=== PATIENT | female | born 1945 | race Caucasian/White ===

== ENCOUNTER → 2016-12-03 | Outpatient (CLI) | payer MEDICARE | LOC: OD 11:29 | PROVIDERS: ATTEND Physician Assistant | DX: R10.13 Epigastric pain (principal) | CPT/HCPCS: 74022 ==

== ENCOUNTER → 2017-02-10 | Outpatient (CLI) | payer MEDICARE ==
[2017-02-10 10:07] LABS: ALANINE AMINOTRANSFERASE 26 U/L (9-52); ALBUMIN 3.6 g/dL (3.5-5.0); ALKALINE PHOSPHATASE 67 U/L (38-126); ASPARTATE AMINO TRANSFERASE 17 U/L (14-36); BILIRUBIN,DIRECT 0.1 mg/dL (0.0-0.4); BILIRUBIN,TOTAL 0.9 mg/dL (0.2-1.3); TOTAL PROTEIN 5.4 g/dL (6.3-8.2)
[2017-02-10 10:18] LABS: ANION GAP 15 (5-19); BLOOD UREA NITROGEN 22 mg/dL (7-20); CALCIUM 8.8 mg/dL (8.4-10.2); CARBON DIOXIDE 23 mmol/L (22-30); CHLORIDE 105 mmol/L (98-107); CHOLESTEROL 125.31 mg/dL (0-200); CREATININE RESULT 0.93 mg/dL (0.52-1.25); Direct HDL 58 mg/dL (>40); GLUCOSE 89 mg/dL (75-110); POTASSIUM 3.9 mmol/L (3.6-5.0); SODIUM 142.9 mmol/L (137-145); TRIGLYCERIDES 66 mg/dL (<150)
[2017-02-10 10:29] LABS: DIRECT LDL 49 mg/dL (<100)
== END ==
LOC: OD 07:58
PROVIDERS: ATTEND Internal Medicine Cardiovascular Disease
DX: E78.00 Pure hypercholesterolemia, unspecified (principal); Z79.899 Other long term (current) drug therapy
CPT/HCPCS: 36415; 80048; 80061; 80076

== ENCOUNTER → 2017-04-28 | Outpatient (CLI) | payer MEDICARE ==
--- NOTE | 2017-04-28 15:06 | RADIOLOGY REPORT (SQ) ---
EXAM DESCRIPTION: FOOT LEFT COMPLETE COMPLETED DATE/TIME: 04/28/2017 12:54 pm REASON FOR STUDY: PAIN IN LEFT FOOT M79.672 PAIN IN LEFT FOOT COMPARISON: None. NUMBER OF VIEWS: Three views. TECHNIQUE: AP, lateral and oblique radiographic images acquired of the left foot. LIMITATIONS: None. FINDINGS: MINERALIZATION: Osteopenic BONES: No acute fracture or dislocation. No worrisome bone lesions. Small plantar and dorsal calcan eal spurs JOINTS: No effusions. SOFT TISSUES: No soft tissue swelling. No foreign body. OTHER: No other significant finding. IMPRESSION: NEGATIVE STUDY OF THE LEFT FOOT. NO RADIOGRAPHIC EVIDENCE OF ACUTE INJURY. TECHNICAL DOCUMENTATION: JOB ID: [id number] [employer]- All Rights Reserved
== END ==
LOC: OD 12:37
PROVIDERS: ATTEND Physician Assistant
DX: M79.672 Pain in left foot (principal)

== ENCOUNTER → 2017-05-30 | Outpatient (CLI) | payer MEDICARE ==
[2017-05-30 10:25] LABS: ABSOLUTE EOSINOPHILS # (AUTO) 0.1 10^3/uL (0.0-0.6); ABSOLUTE LYMPHOCYTES (AUTO) 0.7 10^3/uL (0.5-4.7); ABSOLUTE MONOCYTES (AUTO) 0.4 10^3/uL (0.1-1.4); BASOPHILS % (AUTO) 0.4 % (0-2); EOSINOPHILS % (AUTO) 1.4 % (0-6); HEMATOCRIT 35.2 % (36.0-47.0); HEMOGLOBIN 12.2 g/dL (12.0-15.5); HGB HCT DIFFERENCE 1.4; LYMPHOCYTES % (AUTO) 15.8 % (13-45); MEAN CORPUSCULAR HEMOGLOBIN 30.5 pg (27.0-33.4); MEAN CORPUSCULAR HGB CONC 34.7 g/dL (32.0-36.0); MEAN CORPUSCULAR VOLUME 88 fl (80-97); MONOCYTES % (AUTO) 10.4 % (3-13); RED BLOOD COUNT 4.01 10^6/uL (3.72-5.28); RED CELL DISTRIBUTION WIDTH 13.7 % (11.5-14.0); WHITE BLOOD COUNT 4.2 10^3/uL (4.0-10.5)
[2017-05-30 10:45] LABS: ALANINE AMINOTRANSFERASE 23 U/L (9-52); ALBUMIN 3.5 g/dL (3.5-5.0); ALKALINE PHOSPHATASE 78 U/L (38-126); ANION GAP 11 (5-19); ASPARTATE AMINO TRANSFERASE 14 U/L (14-36); BILIRUBIN,DIRECT 0.3 mg/dL (0.0-0.4); BILIRUBIN,TOTAL 0.7 mg/dL (0.2-1.3); BLOOD UREA NITROGEN 18 mg/dL (7-20); CALCIUM 8.9 mg/dL (8.4-10.2); CARBON DIOXIDE 27 mmol/L (22-30); CHLORIDE 104 mmol/L (98-107); CREATINE KINASE 66 U/L (30-135); CREATININE RESULT 0.96 mg/dL (0.52-1.25); GLUCOSE 86 mg/dL (75-110); POTASSIUM 4.2 mmol/L (3.6-5.0); SODIUM 141.8 mmol/L (137-145)
[2017-05-30 10:50] LABS: CREATINE KINASE MB 0.53 ng/mL (<4.55)
[2017-05-30 10:54] LABS: TROPONIN I < 0.012 ng/mL
--- NOTE | 2017-05-30 12:36 | RADIOLOGY REPORT (SQ) ---
EXAM DESCRIPTION: CHEST PA/LATERAL COMPLETED DATE/TIME: 05/30/2017 10:02 am REASON FOR STUDY: SOB COMPARISON: 11/20/2012 EXAM PARAMETERS: NUMBER OF VIEWS: two views TECHNIQUE: Digital Frontal and Lateral radiographic views of the chest acquired. RADIATION DOSE: NA LIMITATIONS: none FINDINGS: LUNGS AND PLEURA: Chronic interstitial changes. No effusions. MEDIASTINUM AND HILAR STRUCTURES: No masses or contour abnormalities. HEART AND VASCULAR STRUCTURES: Stable cardiomegaly. BONES: No acute findings. HARDWARE: None in the chest. OTHER: No other significant finding. IMPRESSION: No acute findings in the chest. TECHNICAL DOCUMENTATION: JOB ID: [id number] [employer]- All Rights Reserved
--- NOTE | 2017-05-30 15:08 | RADIOLOGY REPORT (SQ) ---
EXAM DESCRIPTION: CT CHEST WITHOUT COMPLETED DATE/TIME: 05/30/2017 2:40 pm REASON FOR STUDY: SOB/ELEVATED D DIMER COMPARISON: None. TECHNIQUE: Study could not be performed due to inability to obtain adequate venous access. LIMITATIONS: None. FINDINGS: No images acquired. IMPRESSION: Study not performed due to inability to obtain adequate venous access. The patient will have a nuclear medicine lung scan instead. TECHNICAL DOCUMENTATION: JOB ID: [id number] [employer]- All Rights Reserved
--- NOTE | 2017-05-30 15:35 | RADIOLOGY REPORT (SQ) ---
EXAM DESCRIPTION: NM LUNG VENT/PERF SCAN COMPLETED DATE/TIME: 05/30/2017 3:22 pm REASON FOR STUDY: SHORTNESS OF BREATH R06.02 SHORTNESS OF BREATH COMPARISON: None. RADIONUCLIDE AND DOSE: 5.44 millicuries TC-99m MAA Intravenous 31.2 millicuries TC-99m DTPA Inhaled aerosol TECHNIQUE: Two views of the lungs acquired post ventilation of DTPA aerosol. Eight views of the ha gs acquired following injection of MAA. LIMITATIONS: Artifact on the lateral perfusion images due to the patient's body habitus and overlyin g soft tissue. FINDINGS: VENTILATION: Symmetric and homogeneous distribution of DTPA aerosol during ventilatory pha se. No significant areas of photopenia. PERFUSION: Perfusion images with normal homogenous activity and no wedge-shaped or segmental defects. No ventilation-perfusion mismatches. OTHER: No other significant finding. IMPRESSION: RELATIVELY UNREMARKABLE LUNG SCAN. SLIGHTLY LIMITED DUE TO THE PATIENT'S BODY HABITUS. LOW PROBABILITY OF PULMONARY EMBOLISM. TECHNICAL DOCUMENTATION: JOB ID: [id number] [employer]- All Rights Reserved
== END ==
LOC: OD 09:12
PROVIDERS: ATTEND Physician Assistant
DX: R06.02 Shortness of breath (principal); R79.89 Other specified abnormal findings of blood chemistry
CPT/HCPCS: 36415; 82553; 82550; 85025; 80053; 84484; 85379; 71020; 78582; A9540; A9567; Q9969

== ENCOUNTER 2017-06-03 11:38 | Observation (INO) | payer MEDICARE ==
--- NOTE | 2017-06-03 14:24 | RADIOLOGY REPORT (SQ) ---
EXAM DESCRIPTION: CHEST PA/LAT COMPLETED DATE/TIME: 06/03/2017 2:13 pm REASON FOR STUDY: DYSPNEA, LEG SWELLING COMPARISON: 05/30/2017. EXAM PARAMETERS: NUMBER OF VIEWS: two views TECHNIQUE: Digital Frontal and Lateral radiographic views of the chest acquired. RADIATION DOSE: NA LIMITATIONS: none FINDINGS: LUNGS AND PLEURA: No opacities, masses or pneumothorax. No pleural effusion. MEDIASTINUM AND HILAR STRUCTURES: No masses or contour abnormalities. HEART AND VASCULAR STRUCTURES: Heart normal size. No evidence for failure. BONES: No acute findings. HARDWARE: None in the chest. OTHER: No other significant finding. IMPRESSION: NO SIGNIFICANT RADIOGRAPHIC FINDING IN THE CHEST. TECHNICAL DOCUMENTATION: JOB ID: [id number] [employer]- All Rights Reserved
[2017-06-03 14:26] LABS: RED BLOOD COUNT 3.97 10^6/uL (3.72-5.28); WHITE BLOOD COUNT 4.6 10^3/uL (4.0-10.5)
[2017-06-03 14:27] LABS: ABSOLUTE EOSINOPHILS # (AUTO) 0.1 10^3/uL (0.0-0.6); ABSOLUTE LYMPHOCYTES (AUTO) 0.8 10^3/uL (0.5-4.7); ABSOLUTE MONOCYTES (AUTO) 0.4 10^3/uL (0.1-1.4); ABSOLUTE NEUT (AUTO) 3.3 10^3/uL (1.7-8.2); BASOPHILS % (AUTO) 0.7 % (0-2); EOSINOPHILS % (AUTO) 1.1 % (0-6); LYMPHOCYTES % (AUTO) 17.9 % (13-45); MEAN CORPUSCULAR HEMOGLOBIN 30.3 pg (27.0-33.4); MEAN CORPUSCULAR HGB CONC 34.4 g/dL (32.0-36.0); MEAN CORPUSCULAR VOLUME 88 fl (80-97); RED CELL DISTRIBUTION WIDTH 14.2 % (11.5-14.0); SEGMENTED NEUTROPHILS % (AUTO) 71.3 % (42-78)
[2017-06-03 14:32] LABS: PROTHROMBIN TIME 12.3 SEC (11.4-15.4)
[2017-06-03 14:35] LABS: D-DIMER 0.76 ug/mL (0.00-0.50)
[2017-06-03] MEDS ORDERED: ASPIRIN 81 MG TABLET, CHEWABLE PO ONE (14:36)
--- NOTE | 2017-06-03 14:38 | ER Document Report ---
ED General - General Chief Complaint: Shortness Of Breath Stated Complaint: SHORTNESS OF BREATH,RIGHT LEG PAIN Time Seen by Provider: 06/03/17 11:59 Mode of Arrival: Ambulatory Information source: Patient Notes: 71-year-old female with a history of hypertension and VT in the past who presents to the emergency room withE dyspnea on exertion for the past week. Patient states it started last Tuesday. 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 She was evaluated by her primary care doctor 3 days ago and had a VQ scan which was normal at that time. She denies any chest pain. She states that her symptoms now are different than when she had the pulmonary embolus. TRAVEL OUTSIDE OF THE [place] IN LAST 30 DAYS: No - Related Data Allergies/Adverse Reactions: No Known Allergies Allergy (Verified 06/03/17 11:59) Home Medications: Current Home Medications Simvastatin 40 mg PO DAILY 06/03/17 [History] Tramadol HCl 50 mg PO BID 06/03/17 [History] Trazodone HCl 100 mg PO QHS 06/03/17 [History] Past Medical History - General Information source: Patient - Social History Smoking Status: Former Smoker Cigarette use (# per day): No - Patient stop smoking 19 years ago Chew tobacco use (# tins/day): No Frequency of alcohol use: None Drug Abuse: None Family History: Reviewed & Not Pertinent - Past Medical History Cardiac Medical History: Reports: Hx Hypertension - medication Denies: Hx Coronary Artery Disease, Hx Heart Attack Pulmonary Medical History: Reports: Hx Pneumonia Denies: Hx Asthma, Hx Bronchitis, Hx COPD Neurological Medical History: Denies: Hx Cerebrovascular Accident, Hx Seizures Renal/ Medical History: Denies: Hx Peritoneal Dialysis Malignancy Medical History: Reports: Hx Colorectal Cancer GI Medical History: Denies: Hx Hepatitis, Hx Hiatal Hernia, Hx Ulcer Musculoskeltal Medical History: Infectious Medical History: Denies: Hx Hepatitis Past Surgical History: Reports: Hx Abdominal Surgery - hernia, colon surgery, Hx Bowel Surgery - bowel ressection, Hx Herniorrhaphy, Hx Hysterectomy, Hx Orthopedic Surgery - right knee replacement, Hx Tonsillectomy. Denies: Hx Mastectomy, Hx Open Heart Surgery, Hx Pacemaker - Immunizations Hx Diphtheria, Pertussis, Tetanus Vaccination: Yes Hx Pneumococcal Vaccination: 11/20/12 Physical Exam - Vital signs Vitals: Temp Pulse Resp BP Pulse Ox 98.2 F 65 26 H 173/81 H 98 06/03/17 11:41 06/03/17 11:41 06/03/17 11:41 06/03/17 11:41 06/03/17 11:41 Notes: Physical exam: GENERAL: HEAD: Atraumatic, normocephalic. EYES: Pupils equal round and reactive to light, extraocular movements intact, sclera anicteric, conjunctiva are normal. ENT: TMs normal, nares patent, oropharynx clear without exudates. Moist mucous membranes. NECK: Normal range of motion, supple without lymphadenopathy or JVD. LUNGS: Breath sounds clear to auscultation bilaterally and equal. No wheezes rales or rhonchi. HEART: Regular rate and rhythm without murmurs, rubs or gallops. ABDOMEN: Soft, normoactive bowel sounds. No tenderness to palpation. No guarding, no rebound. No masses appreciated. EXTREMITIES: Normal range of motion, no pitting or edema. No clubbing or cyanosis. NEUROLOGICAL: Cranial nerves II through XII grossly intact. Normal speech, normal gait. PSYCH: Normal mood, normal affect. SKIN: Warm, Dry, normal turgor, no rashes or lesions noted. 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 The plan will be to admit the patient for rule out, cardiac monitoring, echo and possible stress. Her symptoms are different than when she experienced a pulmonary embolism years ago. She has not been hypoxic. A VQ scan performed 3 days ago was normal. Lower extremity Dopplers today are normal. While her d-dimer is elevated, I would expect given her history of embolic phenomenon and her age, that it would have been positive anyway. I discussed the case with Dr. Romeron is willing to admit the patient. - Vital Signs Vital signs: Temp Pulse Resp BP Pulse Ox 98.2 F 65 14 171/74 H 98 06/03/17 11:41 06/03/17 11:41 06/03/17 15:02 06/03/17 14:43 06/03/17 15:02 - Laboratory Result Diagrams: 06/03/17 14:00 06/03/17 14:00 Laboratory results interpreted by me: 06/03/17 06/03/17 14:00 14:00 Hct 35.0 L RDW 14.2 H D-Dimer 0.76 H Discharge - Discharge Clinical Impression: Dyspnea on exertion Admitting Provider: Hospitalist - dr Overton Unit Admitted: Telemetry
[2017-06-03 14:44] LABS: ALANINE AMINOTRANSFERASE 28 U/L (9-52); ALBUMIN 3.9 g/dL (3.5-5.0); ALKALINE PHOSPHATASE 80 U/L (38-126); ANION GAP 8 (5-19); ASPARTATE AMINO TRANSFERASE 19 U/L (14-36); BILIRUBIN,DIRECT 0.3 mg/dL (0.0-0.4); BILIRUBIN,TOTAL 0.8 mg/dL (0.2-1.3); BLOOD UREA NITROGEN 20 mg/dL (7-20); CALCIUM 8.6 mg/dL (8.4-10.2); CARBON DIOXIDE 26 mmol/L (22-30); CHLORIDE 105 mmol/L (98-107); CREATININE RESULT 0.91 mg/dL (0.52-1.25); GLUCOSE 90 mg/dL (75-110); POTASSIUM 4.1 mmol/L (3.6-5.0); TOTAL PROTEIN 6.8 g/dL (6.3-8.2)
[2017-06-03 15:22] LABS: CREATINE KINASE MB 0.44 ng/mL (<4.55)
[2017-06-03 15:27] LABS: TROPONIN I < 0.012 ng/mL
--- NOTE | 2017-06-03 16:11 | RADIOLOGY REPORT (SQ) ---
EXAM DESCRIPTION: VENOUS BILATERAL LOWER COMPLETED DATE/TIME: 06/03/2017 4:02 pm REASON FOR STUDY: camacho, h/o PE COMPARISON: None. TECHNIQUE: Dynamic and static gold scale and color images acquired of both lower extremity venous sy stems. Selected spectral images acquired with additional compression and augmentation maneuvers. Imag es stored on PACS. LIMITATIONS: None. FINDINGS: RIGHT LEG COMMON FEMORAL AND FEMORAL: Normal phasicity, compression and augmentation. No visualized echogenic m aterial on gold scale. No defects on color images. POPLITEAL: Normal compression and augmentation. No visualized echogenic material on gold scale. No de fects on color images. CALF VESSELS: Normal compression and augmentation. No visualized echogenic material on gold scale. No defects on color image. GSV AND SSV: Normal compression. No visualized echogenic material on gold scale. No defects on color images. ANY DEEP VENOUS INSUFFICIENCY: Not evaluated. ANY EVIDENCE OF POPLITEAL CYST: No. OTHER: No other significant finding. LEFT LEG COMMON FEMORAL AND FEMORAL: Normal phasicity, compression and augmentation. No visualized echogenic m aterial on gold scale. No defects on color images. POPLITEAL: Normal compression and augmentation. No visualized echogenic material on gold scale. No de fects on color images. CALF VESSELS: Normal compression and augmentation. No visualized echogenic material on gold scale. No defects on color images. GSV AND SSV: Normal compression. No visualized echogenic material on gold scale. No defects on color images. ANY DEEP VENOUS INSUFFICIENCY: Not evaluated. ANY EVIDENCE POPLITEAL CYST: No. OTHER: No other significant finding. IMPRESSION: NO EVIDENCE DVT OR SVT IN EITHER LEG. TECHNICAL DOCUMENTATION: JOB ID: [id number] [employer]- All Rights Reserved
[2017-06-03] MEDS ORDERED: ACETAMINOPHEN 325 MG TABLET PO PRN (17:48)
[2017-06-03] MEDS ORDERED: ONDANSETRON HCL INJ/PF 4 MG/2 ML SDV IV PRN (17:54)
--- NOTE | 2017-06-03 18:08 | PDOC H&P ---
History of Present Illness Admission Date/PCP: 06/03/17 16:13 JAZZY COLEMAN MD Patient complains of: Shortness of breath on exertion History of Present Illness: YUE MARTINEZ is a 71 year old female, with history of hypertension and pulmonary embolism, morbidly obese, has been dealing with shortness of breath on exertion. This is been ongoing for the past week or so. 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 It took a few days before it was restored. Initially her shortness of breath on exertion improved but eventually returned a few days later. The patient was evaluated by her primary care physician or a VQ scan was performed showing low probability for pulmonary embolism. Patient was likewise evaluated by her roll former Dr. Coleman. Patient went to the emergency room because of persistence of her symptoms. A lower extremity venous Doppler was performed but was negative for deep venous thrombosis. At this point a recommendation of stress test was made and therefore the patient was referred to the hospitalist service for admission. Patient denies any specific chest pain, diaphoresis, PND orthopnea, nausea or vomiting nor any shortness of breath at rest. Likewise there is no coughing nor chest congestion. Past Medical History Cardiac Medical History: Reports: Hypertension - medication Denies: Coronary Artery Disease, Myocardial Infarction Pulmonary Medical History: Reports: Pneumonia, Other - Pulmonary embolism Denies: Asthma, Bronchitis, Chronic Obstructive Pulmonary Disease (COPD) Neurological Medical History: Denies: Seizures Malignancy Medical History: Reports: Colorectal Cancer GI Medical History: Denies: Hepatitis, Hiatal Hernia Musculoskeltal Medical History: Hematology: Denies: Anemia, Sickle Cell Disease Past Surgical History Past Surgical History: Reports: Herniorrhaphy, Hysterectomy, Orthopedic Surgery - right knee replacement, Tonsillectomy Denies: Amputation, Mastectomy, Pacemaker Social History Information Source: Patient Smoking Status: Former Smoker Frequency of Alcohol Use: None Hx Recreational Drug Use: No Drugs: None - Advance Directive Resuscitation Status: Full Code Family History Family History: Hypertension Parental Family History Reviewed: Yes Children Family History Reviewed: Yes Sibling(s) Family History Reviewed.: Yes Medication/Allergy Home Medications: Aspirin [Aspirin 81 mg Chewable Tablet] 81 mg PO DAILY 06/03/14 Losartan/Hydrochlorothiazide [Hyzaar 100-25 Tablet] 1 each PO DAILY 06/03/14 Potassium Chloride [Klor-Con 10 Meq Tablet.sa] 10 meq PO DAILY 06/03/14 Simvastatin 40 mg PO DAILY 06/03/17 Tramadol HCl 50 mg PO BID 06/03/17 Trazodone HCl 100 mg PO QHS 06/03/17 Allergies/Adverse Reactions: No Known Allergies Allergy (Verified 06/03/17 11:59) Review of Systems Constitutional: ABSENT: chills, fever(s), headache(s), weight gain, weight loss Eyes: ABSENT: visual disturbances Ears: ABSENT: hearing changes Nose, Mouth, and Throat: ABSENT: mouth pain, sore throat Cardiovascular: PRESENT: dyspnea on exertion, edema - Chronic without any increasing. ABSENT: chest pain, orthropnea, palpitations Respiratory: ABSENT: cough, hemoptysis, sputum Gastrointestinal: ABSENT: abdominal pain, coffee ground emesis, constipation, diarrhea, dysphagia, heartburn, hematemesis, hematochezia, melena, nausea, vomiting Genitourinary: ABSENT: dysuria, hematuria Musculoskeletal: ABSENT: joint swelling Integumentary: ABSENT: pruritus, rash, wounds Neurological: ABSENT: abnormal gait, abnormal speech, confusion, dizziness, focal weakness, syncope Psychiatric: ABSENT: anxiety, depression, homidical ideation, suicidal ideation Endocrine: ABSENT: cold intolerance, heat intolerance, polydipsia, polyuria Hematologic/Lymphatic: ABSENT: easy bleeding, easy bruising Physical Exam Vital Signs: Temp Pulse Resp BP Pulse Ox 98.2 F 65 20 147/47 H 97 06/03/17 11:41 06/03/17 11:41 06/03/17 17:02 06/03/17 17:02 06/03/17 17:02 General appearance: PRESENT: no acute distress, morbidly obese Head exam: PRESENT: atraumatic, normocephalic Eye exam: PRESENT: conjunctiva pink, EOMI, PERRLA. ABSENT: scleral icterus Ear exam: PRESENT: normal external ear exam. ABSENT: drainage Mouth exam: PRESENT: moist, neck supple, tongue midline Neck exam: ABSENT: carotid bruit, JVD, lymphadenopathy, thyromegaly Respiratory exam: PRESENT: clear to auscultation nathan. ABSENT: rales, rhonchi, wheezes Cardiovascular exam: PRESENT: bradycardia, RRR. ABSENT: diastolic murmur, rubs , systolic murmur Pulses: PRESENT: normal dorsalis pedis pul Vascular exam: PRESENT: normal capillary refill GI/Abdominal exam: PRESENT: normal bowel sounds, soft. ABSENT: distended, guarding, mass, organolmegaly, rebound, tenderness Rectal exam: PRESENT: deferred Extremities exam: PRESENT: full ROM, other - Trace lower extremity edema bilateral. ABSENT: calf tenderness, clubbing Neurological exam: PRESENT: alert, awake, oriented to person, oriented to place , oriented to time, oriented to situation, CN II-XII grossly intact. ABSENT: motor sensory deficit Psychiatric exam: PRESENT: appropriate affect, normal mood. ABSENT: homicidal ideation, suicidal ideation Skin exam: PRESENT: dry, intact, warm. ABSENT: cyanosis, rash Results Impressions: Chest X-Ray 06/03/17 13:31 IMPRESSION: NO SIGNIFICANT RADIOGRAPHIC FINDING IN THE CHEST. Venous Doppler Study 06/03/17 14:35 IMPRESSION: NO EVIDENCE DVT OR SVT IN EITHER LEG. Assessment & Plan - Diagnosis (1) Dyspnea on exertion Is this a current diagnosis for this admission?: Yes (2) Sinus bradycardia Is this a current diagnosis for this admission?: Yes (3) Essential hypertension Is this a current diagnosis for this admission?: Yes - Time Time Spent: 50 to 70 Minutes - Plan Summary Plan Summary: The patient will be admitted to observation. We will obtain cardiac enzymes 3. We will likewise obtain TSH and free T4. When enzymes are negative we will proceed with a stress test. Case discussed with her roll former Dr. Coleman. Dr. Coleman agreed for Dr. Currie to do the stress test. I will also hydrate the patient with 2 L of IV fluids and see if it will help.
[2017-06-03 18:59] LABS: CREATINE KINASE MB 0.47 ng/mL (<4.55)
--- NOTE | 2017-06-03 18:59 | EKG REPORT ---
SEVERITY:- BORDERLINE ECG - SINUS BRADYCARDIA BORDERLINE T ABNORMALITIES, INFERIOR LEADS : Confirmed by: Ludy Curtis MD 03-Jun-2017 18:58:13
[2017-06-03] MEDS ORDERED: ENOXAPARIN SODIUM INJ 40 MG/0.4 ML DISP.SYRIN SUBCUT ONE (19:00)
[2017-06-03 19:03] LABS: TROPONIN I < 0.012 ng/mL
[2017-06-03] MEDS: DOCUSATE SODIUM 100 MG CAPSULE PO SCH (19:27)
[2017-06-03] MEDS ORDERED: TRAZODONE HCL 50 MG TABLET PO SCH (22:00)
[2017-06-03 23:01] LABS: ADD ON TESTING BLD IN LAB ACKNOWLEDGE
[2017-06-03 23:24] LABS: MAGNESIUM 2.1 mg/dL (1.6-2.3)
[2017-06-04 01:45] LABS: CREATINE KINASE MB 0.65 ng/mL (<4.55)
[2017-06-04 01:49] LABS: TROPONIN I < 0.012 ng/mL
[2017-06-04] MEDS ORDERED: LANSOPRAZOLE 30 MG TAB.RAP.DR PO SCH (06:00)
[2017-06-04] MEDS ORDERED: NORMAL SALINE 1000 ML 1,000 ML IV PRN (07:27)
[2017-06-04 07:30] LABS: TROPONIN I < 0.012 ng/mL
[2017-06-04] MEDS ORDERED: LOPERAMIDE HCL 2 MG CAPSULE PO PRN (08:37)
[2017-06-04] MEDS ORDERED: LOPERAMIDE HCL 2 MG CAPSULE PO ONE (08:45)
[2017-06-04] MEDS ORDERED: (PENDING PHARMACY ID) (Losartan/Hydrochlorothiazide [Hyzaar 100-25 Tablet] 1 EACH) PO SCH (10:00)
[2017-06-04] MEDS ORDERED: LOSARTAN POTASSIUM 50 MG TABLET PO SCH (10:00)
[2017-06-04] MEDS ORDERED: ENOXAPARIN SODIUM INJ 40 MG/0.4 ML DISP.SYRIN SUBCUT SCH (10:00)
[2017-06-04] MEDS ORDERED: ASPIRIN 81 MG TABLET, CHEWABLE PO SCH (10:00)
[2017-06-04] MEDS ORDERED: POTASSIUM CHLORIDE 10 MEQ TABLET.SA PO SCH (10:00)
[2017-06-04] MEDS ORDERED: HYDROCHLOROTHIAZIDE 25 MG TABLET PO SCH (10:00)
[2017-06-04] MEDS ORDERED: REGADENOSON INJ 0.4 MG/5 ML DISP.SYRIN IV ONE (12:00)
--- NOTE | 2017-06-04 12:57 | DRAGON STRESS TEST REPORT ---
INTRAVENOUS LEXISCAN CARDIOLITE STRESS TEST USING SINGLE PHOTON EMMISION COMPUTERIZED TOMOGRAPHIC. DATE OF PROCEDURE: June 04, 2017 INDICATION : Shortness of breath CARDIAC RISK FACTORS: Hypertension, dyslipidemia RESTING EKG: Sinus bradycardia with heart rate of [address]- T wave changes noted. STRESS EKG: No significant changes noted with LexiScan bolus REASON FOR TERMINATION: Protocol. PROCEDURE REPORT: Baseline heart rate 51 beats per minute with blood pressure of 131/52. Patient had no significant complaints. Heart rate at 2 minutes post bolus 73 with a blood pressure of 134/53. 3 minutes post bolus heart rate 74 with blood pressure of 137/54. No significant EKG changes were noted. Patient had no significant complaints during the procedure or postprocedure. Patient injected with Aminophyllin 75 mg at 3 minutes or later after Lexiscan bolus. CONCLUSIONS: Normal EKG and hemodynamic response to IV LexiScan. NUCLEAR DATA: At rest the patient was given 15.50 millicuries of technetium 99 sestamibi injected intravenously. As per protocol rest gated SPECT images were obtained. Subsequently the patient was given intravenous LexiScan at a dose of 0.4 mg in 5 mL intravenously, followed by flush with normal saline. Subsequently the stress dose of 46.8 millicuries of technetium 99 sestamibi was injected intravenously. As per protocol stress gated images were obtained. NUCLEAR INTERPRETATION: Both raw and processed data were used for interpretation. Visual, qualitative, computer-generated quantitative data was used. There was good myocardial uptake of technetium compound. Motion artifact and soft tissue attenuations were noted. Increased visceral uptake was noted. Breast attenuation artifact was significantly increased. Mild decreased uptake was noted in the distal anterior wall, which is felt to be related to differences in breast attenuation artifact, an area of mild ischemia however cannot be entirely ruled out. No corresponding regional wall motion abnormalities noted on gated imaging. No definitive areas of fixed perfusion defect or scars noted. EKG gated imaging showed LV EF at 69 %, rest and stress gated EF similar visually, no regional wall motion normality is noted. T. I D. ratio was 1.02. Lung heart ratio noted to be within normal limits 0.35. No significant extracardiac and abnormal radiotracer activities were noted. RV free wall uptake was noted to be WNL. IMPRESSION: Also refer to comments under nuclear interpretation. Also test results needs to be interpreted in the context of pretest probability. 1. There is no definitive scintigraphic evidence of LexiScan induced myocardial ischemia. 2. There is no definitive scintigraphic evidence of myocardial infarction/scar. 3. EKG gated imaging shows left ejection fraction of approximately 69 %. 4. Clinical correlation requested as occasionally single vessel disease or balanced ischemia could be missed. In approximately 10% of the cases Lexiscan may not cause adequate vasodilatory stress. RECOMMENDATIONS: Aggressive risk factor modification, medical therapy. Clinical correlation with echocardiogram derived ejection fraction. Inability to exercise by itself can lead to increased cardiovascular event risks. Isabella Currie M.D., [facility] Coffee Shop Attendant certified legal investigator, Board certified in cardiovascular diseases, Nuclear cardiology, Echocardiography Cardiac CT and cardiac MRI Ph. [phone] [facility]
[2017-06-04] MEDS: DOCUSATE SODIUM 100 MG CAPSULE PO SCH (13:12)
--- NOTE | 2017-06-04 14:11 | PDOC DISCHARGE SUMMARY ---
General - Admit/Disc Date/PCP Admission Date/Primary Care Provider: 06/03/17 17:48 JAZZY COLEMAN MD Discharge Date: 06/04/17 - Discharge Diagnosis (1) Dyspnea on exertion Is this a current diagnosis for this admission?: Yes (2) Sinus bradycardia Is this a current diagnosis for this admission?: Yes (3) Essential hypertension Is this a current diagnosis for this admission?: Yes - Additional Information Resuscitation Status: Full Code Discharge Diet: Cardiac Discharge Activity: Activity As Tolerated, Balance Activity w/Rest Home Medications: Aspirin [Aspirin 81 mg Chewable Tablet] 81 mg PO DAILY 06/03/14 Losartan/Hydrochlorothiazide [Hyzaar 100-25 Tablet] 1 each PO DAILY 06/03/14 Potassium Chloride [Klor-Con 10 Meq Tablet.sa] 10 meq PO DAILY 06/03/14 Simvastatin 40 mg PO DAILY 06/03/17 Tramadol HCl 50 mg PO BID 06/03/17 Trazodone HCl 100 mg PO QHS 06/03/17 Additional Information: And recorder as outpatient with Dr. Coleman. History of Present Illness Patient complains of: Shortness of breath on exertion History of Present Illness: YUE MARTINEZ is a 71 year old female, with history of hypertension and pulmonary embolism, morbidly obese, has been dealing with shortness of breath on exertion. This is been ongoing for the past week or so. 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 It took a few days before it was restored. Initially her shortness of breath on exertion improved but eventually returned a few days later. The patient was evaluated by her primary care physician or a VQ scan was performed showing low probability for pulmonary embolism. 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 Coleman. Patient went to the emergency room because of persistence of her symptoms. A lower extremity venous Doppler was performed but was negative for deep venous thrombosis. At this point a recommendation of stress test was made and therefore the patient was referred to the hospitalist service for admission. Patient denies any specific chest pain, diaphoresis, PND orthopnea, nausea or vomiting nor any shortness of breath at rest. Likewise there is no coughing nor chest congestion. Hospital Course Hospital Course: The patient was placed on observation. Serial cardiac enzymes were obtained and were negative. IVF was started. Pt symptoms resoved. Noted w/ bradycardia but patient reports it being chronic. Cardiolyte stress test was obtained and was negative for reversible ischemia. The rest of the hospital stay is unremarkable. Patient D/C improved w/ instructions to have event recorder out- patient w/ Dr. Coleman. Physical Exam Vital Signs: Temp Pulse Resp BP Pulse Ox 98.7 F 48 L 18 147/68 H 97 06/04/17 12:22 06/04/17 12:22 06/04/17 12:22 06/04/17 12:22 06/04/17 12:22 Intake & Output 06/03/17 06/04/17 06/05/17 06:59 06:59 06:59 Intake Total 240 Balance 240 Weight 117.2 kg 117.2 kg General appearance: PRESENT: no acute distress, cooperative, obese Head exam: PRESENT: normocephalic Eye exam: PRESENT: EOMI Mouth exam: PRESENT: moist, neck supple Neck exam: ABSENT: JVD Respiratory exam: PRESENT: clear to auscultation nathan. ABSENT: rhonchi, wheezes Cardiovascular exam: PRESENT: bradycardia, RRR GI/Abdominal exam: PRESENT: normal bowel sounds, soft. ABSENT: distended, tenderness Extremities exam: PRESENT: pedal edema Neurological exam: PRESENT: alert, awake, oriented to person, oriented to place , oriented to time, oriented to situation Skin exam: PRESENT: dry, warm. ABSENT: cyanosis Results Laboratory Results: 06/03/17 06/03/17 06/04/17 18:23 18:23 06:36 Magnesium 2.1 TSH 2.99 Free T4 1.11 06/03/17 06/03/17 06/04/17 18:23 18:23 00:48 Creatine Kinase 63 63 CK-MB (CK-2) 0.47 Troponin I < 0.012 06/04/17 06/04/17 06/04/17 00:48 06:36 06:36 Creatine Kinase 62 CK-MB (CK-2) 0.65 0.70 Troponin I < 0.012 < 0.012 Impressions: Chest X-Ray 06/03/17 13:31 IMPRESSION: NO SIGNIFICANT RADIOGRAPHIC FINDING IN THE CHEST. Venous Doppler Study 06/03/17 14:35 IMPRESSION: NO EVIDENCE DVT OR SVT IN EITHER LEG. Qualifiers PATEINT BEING DISCHARGED WITH ANY OF THE FOLLOWING DIAGNOSIS?: No Plan Discharge Plan: Follow up w/ primary physician in 1 week. Follow-up w/ Dr. Coleman in 3 to 5 days. Time Spent: Less than 30 Minutes
[2017-06-04 14:15] VITALS: BP 144/59
[2017-06-04] MEDS ORDERED: SIMVASTATIN 40 MG TABLET PO SCH (22:00)
== END 2017-06-04 14:27 | disposition home or self-care (01) ==
LOC: ER 11:38 → EH 16:13 → UNDOADMOB 16:13 → EH 17:48 → 4N 17:59 → EH 17:59
DX: R06.09 Other forms of dyspnea (principal); R00.1 Bradycardia, unspecified; I10 Essential (primary) hypertension; R60.0 Localized edema; R74.8 Abnormal levels of other serum enzymes; Z79.899 Other long term (current) drug therapy; Z86.711 Personal history of pulmonary embolism; Z87.01 Personal history of pneumonia (recurrent); Z85.038 Personal history of other malignant neoplasm of large intestine; Z87.891 Personal history of nicotine dependence; Z82.49 Family history of ischemic heart disease and other diseases of the circulatory system; Z79.82 Long term (current) use of aspirin; Z79.891 Long term (current) use of opiate analgesic; Z96.651 Presence of right artificial knee joint
CPT/HCPCS: 93005; 99285; 36415 ×2; 84439; 82553 ×2; 82550 ×2; 83735; 84443; 85025; 85610; 80053; 84484 ×2; 85379; 93970; 93017; 71020; 78452; 93010; A9500; J2785; A9270 ×5; J1650 ×2; J3490; J7030; Q9969; G0378

== ENCOUNTER → 2017-08-10 | Outpatient (CLI) | payer MEDICARE ==
[2017-08-10 11:03] LABS: ALANINE AMINOTRANSFERASE 28 U/L (9-52); ALBUMIN 3.7 g/dL (3.5-5.0); ALKALINE PHOSPHATASE 77 U/L (38-126); ANION GAP 9 (5-19); ASPARTATE AMINO TRANSFERASE 15 U/L (14-36); BILIRUBIN,DIRECT 0.4 mg/dL (0.0-0.4); BILIRUBIN,TOTAL 0.9 mg/dL (0.2-1.3); BLOOD UREA NITROGEN 20 mg/dL (7-20); CALCIUM 9.2 mg/dL (8.4-10.2); CARBON DIOXIDE 30 mmol/L (22-30); CHLORIDE 103 mmol/L (98-107); CHOLESTEROL 131.57 mg/dL (0-200); CREATININE RESULT 0.87 mg/dL (0.52-1.25); Direct HDL 60 mg/dL (>40); GLUCOSE 87 mg/dL (75-110); POTASSIUM 4.1 mmol/L (3.6-5.0); SODIUM 141.6 mmol/L (137-145); TOTAL PROTEIN 5.7 g/dL (6.3-8.2); TRIGLYCERIDES 82 mg/dL (<150)
[2017-08-10 11:15] LABS: DIRECT LDL 54 mg/dL (<100)
== END ==
LOC: OD 10:01
PROVIDERS: ATTEND Internal Medicine Cardiovascular Disease
DX: E78.00 Pure hypercholesterolemia, unspecified (principal); E66.09 Other obesity due to excess calories; Z79.899 Other long term (current) drug therapy
CPT/HCPCS: 36415; 80048; 80061; 80076; 83036

== ENCOUNTER → 2018-01-18 | Outpatient (CLI) | payer MEDICARE ==
--- NOTE | 2018-01-18 12:18 | WOMENS IMAGING REPORT ---
EXAM DESCRIPTION: 3D SCREENING MAMMO BILAT COMPLETED DATE/TIME: 01/18/2018 8:56 am REASON FOR STUDY: ROUTINE SCREENING;Z12.31 Z12.31 ENCNTR SCREEN MAMMOGRAM FOR MALIGNANT NEOPLASM OF [place] COMPARISON: October 2015 and October 2014 TECHNIQUE: Standard craniocaudal and mediolateral oblique views of each breast recorded using digita l acquisition and breast tomosynthesis. LIMITATIONS: None. FINDINGS: No masses, calcifications or architectural distortion. No areas of suspicion. Read with the assistance of CAD. .[facility] - R2 Cenova Version 1.3 .[facility] - R2 Cenova Version 1.3 .[facility] - R2 Cenova Version 2.4 .[facility] [place] [facility] - R2 Cenova Version 2.4 .[facility] - R2 Real Estate Office Manager Version 9.2 IMPRESSION: NORMAL MAMMOGRAM. BIRADS 1. BREAST DENSITY: a. The breasts are almost entirely fatty. BIRAD: 1 NEGATIVE RECOMMENDATION: ROUTINE SCREENING COMMENT: The patient has been notified of the results by letter per MQSA requirements. Additional no tification policies are in place for contacting patient with suspicious or incomplete findings. Quality ID #[id number]: The [employer] recommends an annual screening mammogram for women aged 40 years or over. This facility utilizes a reminder system to ensure that all patients receive reminder letters, and/or direct phone calls for appointments. This includes reminders for routine scr eening mammograms, diagnostic mammograms, or other Breast Imaging Interventions when appropriate. Th is patient will be placed in the appropriate reminder system. The [employer] (ACR) has developed recommendations for screening MRI of the breast s in certain patient populations, to be used in conjunction with mammography. Breast MRI surveillanc e may be appropriate for women with more than 20% lifetime risk of developing breast cancer as deter mined by genetic testing, significant family history of the disease, or history of mantle radiation f or Hodgkins Disease. ACR Practice Guidelines 2008. DBT Technology DBT is a type of tomographic mammography. With conventional mammography, overlapping breast tissue ma y make lesions difficult to detect, even with good compression. DBT uses an x-ray tube that rotates a round the breast, taking images at different angles. These images are then combined to create thin sl ices of the breast that the radiologist can view as a 3D reconstruction. The Information Gateway unit can perform full-field digital mammograms (2D imaging); or DBT (3D imaging); or both, in a combination mode that quickly performs both the mammogram and the tomosynthesis scan while the breast is still compressed. PQRS 6045F: Fluoroscopic imaging is not utilized for breast tomosynthesis. TECHNICAL DOCUMENTATION: FINDING NUMBER: (1) ASSESSMENT: (1) JOB ID: [id number] [employer]- All Rights Reserved Reading location - IP/workstation name: [facility]
== END ==
LOC: WI 08:34
PROVIDERS: ATTEND Physician Assistant
DX: Z12.31 Encounter for screening mammogram for malignant neoplasm of breast (principal)
CPT/HCPCS: 77063; 77067

== ENCOUNTER 2018-02-12 22:42 | Emergency (ER) | payer MEDICARE ==
[2018-02-12] MEDS ORDERED: ONDANSETRON 4 MG TAB.RAPDIS PO ONE (23:08)
[2018-02-13] MEDS ORDERED: NORMAL SALINE 1000 ML 1,000 ML IV ONE (00:08)
--- NOTE | 2018-02-13 00:15 | ER Document Report ---
ED GI/ - General Chief Complaint: Abdominal Pain Stated Complaint: ABDOMINAL PAIN/VOMITING Time Seen by Provider: 02/12/18 23:44 Information source: Patient Notes: Patient is a 72-year-old female who presents with chief complaint of vomiting. Patient reports that she has had constipation for the last 3 days however she states that she took a stool softener and had a moderate sized bowel movement this morning. Patient describes abdominal pain as sudden onset at 2 PM after she ate bread with peanut butter on it. She states that the pain is in her low abdomen and describes it as a sharp pain. Patient states she has vomited at least 10 times. Patient reports that prior to 2 PM she was feeling fine, has not had any recent illness, and has had no chills or fever. Patient reports that she has a past medical history of colon cancer with bowel resection in 2003 , arthritis, hypertension, hyperlipidemia and a hernia repair. Patient reports that she quit smoking approximately 20 years ago and denies use of any alcohol or illicit drugs. TRAVEL OUTSIDE OF THE [place] IN LAST 30 DAYS: No - Related Data Allergies/Adverse Reactions: No Known Allergies Allergy (Verified 06/03/17 11:59) Past Medical History - General Information source: Patient - Social History Smoking Status: Former Smoker Chew tobacco use (# tins/day): No Frequency of alcohol use: None Drug Abuse: None Family History: Hypertension Patient has suicidal ideation: No Patient has homicidal ideation: No - Past Medical History Cardiac Medical History: Reports: Hx Hypercholesterolemia, Hx Hypertension - medication Denies: Hx Coronary Artery Disease, Hx Heart Attack Pulmonary Medical History: Reports: Hx Pneumonia Denies: Hx Asthma, Hx Bronchitis, Hx COPD Neurological Medical History: Denies: Hx Cerebrovascular Accident, Hx Seizures Renal/ Medical History: Denies: Hx Peritoneal Dialysis Malignancy Medical History: Reports: Hx Colorectal Cancer GI Medical History: Reports: Other - Colon CA with bowel resection in 2003. Denies: Hx Hepatitis, Hx Hiatal Hernia, Hx Ulcer Musculoskeltal Medical History: Infectious Medical History: Denies: Hx Hepatitis Past Surgical History: Reports: Hx Abdominal Surgery - hernia, colon surgery, Hx Bowel Surgery - bowel ressection, Hx Herniorrhaphy, Hx Hysterectomy, Hx Orthopedic Surgery - right knee replacement, Hx Tonsillectomy. Denies: Hx Mastectomy, Hx Open Heart Surgery, Hx Pacemaker - Immunizations Hx Diphtheria, Pertussis, Tetanus Vaccination: Yes Hx Pneumococcal Vaccination: 11/20/12 Review of Systems - Review of Systems Constitutional: No symptoms reported EENT: No symptoms reported Cardiovascular: No symptoms reported Respiratory: No symptoms reported Gastrointestinal: See HPI Genitourinary: No symptoms reported Female Genitourinary: No symptoms reported Musculoskeletal: No symptoms reported Skin: No symptoms reported Hematologic/Lymphatic: No symptoms reported Neurological/Psychological: No symptoms reported Physical Exam - Vital signs Vitals: Temp Pulse Resp BP Pulse Ox 98 F 78 18 141/70 H 96 02/12/18 22:51 02/12/18 22:51 02/12/18 22:51 02/12/18 22:51 02/12/18 22:51 - Notes Notes: PHYSICAL EXAMINATION: GENERAL: Well-appearing, well-nourished and in no acute distress. HEAD: Atraumatic, normocephalic. EYES: Pupils equal round and reactive to light, extraocular movements intact, conjunctiva are normal. ENT: Nares patent, oropharynx clear without exudates. Moist mucous membranes. NECK: Normal range of motion, supple without lymphadenopathy LUNGS: Breath sounds clear to auscultation bilaterally and equal. No wheezes rales or rhonchi. HEART: Regular rate and rhythm without murmurs ABDOMEN: Abdomen is soft, non-distended, with tenderness to lower abdomen with deep palpation. No guarding, no rebound. No masses appreciated. Female : deferred Musculoskeletal: Normal range of motion, non-pitting edema to right lower extremity, patient states is chronic and followed by PCM for. No cyanosis. NEUROLOGICAL: Cranial nerves grossly intact. Normal speech. Normal sensory, motor exams PSYCH: Normal mood, normal affect. SKIN: Warm, Dry, normal turgor, no rashes or lesions noted. Course - Re-evaluation Re-evalutation: Patient's vital signs are stable, labs are unremarkable and there is no leukocytosis. Due to patient's age, history of colon cancer, and lower abdominal tenderness, will send patient for CT of her abdomen and pelvis with oral and IV contrast. Patient was given Zofran in triage and patient declines any further pain or nausea medication. 02/13/18 03:[address] Carter, general surgery who is requesting to give patient a p.o. challenge. Will report back to establish if patient cannot tolerate. Jessica agrees to come see the patient. 02/13/18 06:55 Dr. Lopez at bedside to evaluate patient. Dr. Carter is going to speak with Dr. Elise, oncoming surgeon as patient has an upcoming appointment with him. Basically got a workup which was unremarkable briefly 02/13/18 07:00 Dr. Carter wants patient to be discharged home. Patient is to follow-up with Dr. Elise this week. With restrictions of no lifting and soft diet. Patient given strict return precautions. Patient instructed to return to emergency department if she develops worsening pain, persistent vomiting, fever or any other symptoms that are concerning to her. - Vital Signs Vital signs: Temp Pulse Resp BP Pulse Ox 98 F 78 18 141/70 H 96 02/12/18 22:51 02/12/18 22:51 02/12/18 22:51 02/12/18 22:51 02/12/18 22:51 - Laboratory Result Diagrams: 02/13/18 00:12 02/13/18 00:12 Laboratory results interpreted by me: 02/13/18 02/13/18 00:12 00:12 RDW 14.2 H Seg Neutrophils % 89.5 H Lymphocytes % 5.9 L BUN 28 H Glucose 169 H Total Protein 6.1 L Discharge - Discharge Clinical Impression: Abdominal pain Qualifiers: Abdominal location: unspecified location Qualified Code(s): R10.9 - Unspecified abdominal pain Ventral hernia Qualifiers: Obstruction and gangrene presence: without obstruction or gangrene Qualified Code(s): K43.9 - Ventral hernia without obstruction or gangrene Condition: Stable Disposition: HOME, SELF-CARE Instructions: Abdominal Pain ([facility]) Additional Instructions: You have a ventral hernia that requires close follow-up. Please call Dr. Elise's office this morning and schedule an appointment for this week. No lifting. Please consume only a soft diet. Return to the emergency department if you develop worsening pain, persistent vomiting, fever or any other symptoms that are concerning to you. Referrals: XANDER OKEEFE PA [Primary Care Provider] - Follow up as needed MAYURI ELISE MD [ACTIVE STAFF] - Follow up as needed
[2018-02-13 00:29] LABS: ABSOLUTE LYMPHOCYTES (AUTO) 0.5 10^3/uL (0.5-4.7); ABSOLUTE MONOCYTES (AUTO) 0.3 10^3/uL (0.1-1.4); ABSOLUTE NEUT (AUTO) 7.3 10^3/uL (1.7-8.2); BASOPHILS % (AUTO) 0.3 % (0-2); EOSINOPHILS % (AUTO) 0.1 % (0-6); HEMATOCRIT 37.7 % (36.0-47.0); HEMOGLOBIN 12.8 g/dL (12.0-15.5); LYMPHOCYTES % (AUTO) 5.9 % (13-45); MEAN CORPUSCULAR HEMOGLOBIN 29.2 pg (27.0-33.4); MEAN CORPUSCULAR HGB CONC 33.8 g/dL (32.0-36.0); MEAN CORPUSCULAR VOLUME 87 fl (80-97); MONOCYTES % (AUTO) 4.2 % (3-13); PLATELET COUNT 218 10^3/uL (150-450); RED BLOOD COUNT 4.36 10^6/uL (3.72-5.28); RED CELL DISTRIBUTION WIDTH 14.2 % (11.5-14.0); SEGMENTED NEUTROPHILS % (AUTO) 89.5 % (42-78); TOTAL CELLS COUNTED % (AUTO) 100 %; WHITE BLOOD COUNT 8.2 10^3/uL (4.0-10.5)
[2018-02-13 00:42] LABS: ALANINE AMINOTRANSFERASE 27 U/L (9-52); ALBUMIN 3.7 g/dL (3.5-5.0); ALKALINE PHOSPHATASE 76 U/L (38-126); ANION GAP 6 (5-19); ASPARTATE AMINO TRANSFERASE 16 U/L (14-36); BILIRUBIN,DIRECT 0.1 mg/dL (0.0-0.4); BILIRUBIN,TOTAL 0.5 mg/dL (0.2-1.3); BLOOD UREA NITROGEN 28 mg/dL (7-20); CARBON DIOXIDE 27 mmol/L (22-30); CHLORIDE 105 mmol/L (98-107); GLUCOSE 169 mg/dL (75-110); LIPASE 106.1 U/L (23-300); POTASSIUM 3.7 mmol/L (3.6-5.0); SODIUM 138.3 mmol/L (137-145); TOTAL PROTEIN 6.1 g/dL (6.3-8.2)
[2018-02-13 02:25] LABS: APPEARANCE,URINE SLIGHTLY-CLOUDY; BILIRUBIN,URINE NEGATIVE (NEGATIVE); COLOR,URINE YELLOW; GLUCOSE, URINE NEGATIVE (NEGATIVE); KETONES,URINE NEGATIVE (NEGATIVE); LEUKOCYTE ESTERASE,URINE NEGATIVE (NEGATIVE); NITRITE,URINE NEGATIVE (NEGATIVE); PROTEIN,URINE NEGATIVE (NEGATIVE); URINE SPECIFIC GRAVITY 1.018; UROBILINOGEN,URINE NEGATIVE mg/dL (<2.0)
--- NOTE | 2018-02-13 03:26 | RADIOLOGY REPORT (SQ) ---
EXAM DESCRIPTION: CT ABD/PELVIS WITH IV ORAL CLINICAL HISTORY: 72 years Female, abdominal pain with vomiting COMPARISON: CR, L-spine, June 21, 2014, report only. TECHNIQUE: IV and oral contrast. Coronal and sagittal reformat. This exam was performed according to our departmental dose-optimization program, which includes automated exposure control, adjustment of the mA and/or kV according to patient size and/or use of iterative reconstruction technique. FINDINGS: 3.8 cm supraumbilical midline small bowel herniation appears partially reducible from 3.8-cm to 0.8-cm of herniation incidentally demonstrated on pre and post excretion phases. Additional partial large bowel herniation measures 1.2 cm along the midline of the upper-mid abdomen. There is a small bowel ileus pattern with scattered air-fluid levels and small bowel diameters 2.3 cm. Orally administered contrast is seen throughout the colon. No focal zone of transition at this time. Four hepatic lesions measure up to 3.8 cm each with peripheral nodular enhancement and gradual filling consistent with hepatic hemangiomata. Moderate hiatal hernia. 2 cm likely right adrenal adenoma with estimated relative adrenal washout greater than 44%. Mild L1 vertebral compression deformity consistent with prior CR report from June 21, 2014. Inferior thorax, gallbladder, pancreas, spleen, left adrenal, renal system, gastrointestinal tract, pelvic organs, lymphatics, vasculature, and musculoskeleton appear otherwise unremarkable. IMPRESSION: 1. Low-grade partial bowel obstruction or ileus associated with ventral, supraumbilical small bowel hernia which appears at least partially reducible. 2. There is an additional upper abdominal partial ventral hernia of transverse colon. 3. Moderate hiatal hernia.
[2018-02-13 07:15] VITALS: BP 107/87
--- NOTE | 2018-02-13 07:45 | PDOC CONSULTATION ---
Consultation Consult Date: 02/13/18 Consult reason:: Incarcerated incisional/ventral hernia History of Present Illness Admission Date/PCP: ANURAG ARTHUR History of Present Illness: YUE MARTINEZ is a 72 year old female Past Medical History Cardiac Medical History: Reports: Hyperlipidema, Hypertension - medication Denies: Coronary Artery Disease, Myocardial Infarction Pulmonary Medical History: Reports: Pneumonia Denies: Asthma, Bronchitis, Chronic Obstructive Pulmonary Disease (COPD) Neurological Medical History: Denies: Seizures Malignancy Medical History: Reports: Colorectal Cancer GI Medical History: Reports: Other - Colon CA with bowel resection in 2003 Denies: Hepatitis, Hiatal Hernia Musculoskeltal Medical History: Hematology: Denies: Anemia, Sickle Cell Disease Past Surgical History Past Surgical History: Reports: Herniorrhaphy, Hysterectomy, Orthopedic Surgery - right knee replacement, Tonsillectomy, Other - colon resection for cancer Denies: Amputation, Mastectomy, Pacemaker Social History Smoking Status: Former Smoker Frequency of Alcohol Use: None Hx Recreational Drug Use: No Drugs: None Family History Family History: Hypertension Parental Family History Reviewed: Yes - hypertension Children Family History Reviewed: No Sibling(s) Family History Reviewed.: No Medication/Allergy Home Medications: Aspirin [Aspirin 81 mg Chewable Tablet] 81 mg PO DAILY 06/03/14 Losartan/Hydrochlorothiazide [Hyzaar 100-25 Tablet] 1 each PO DAILY 06/03/14 Potassium Chloride [Klor-Con 10 Meq Tablet.sa] 10 meq PO DAILY 06/03/14 Simvastatin 40 mg PO DAILY 06/03/17 Tramadol HCl 50 mg PO BID 06/03/17 Trazodone HCl 100 mg PO QHS 06/03/17 Allergies/Adverse Reactions: No Known Allergies Allergy (Verified 06/03/17 11:59) Review of Systems Constitutional: PRESENT: other - no chills/fever Ears: PRESENT: other - no visual/hearing changes Cardiovascular: PRESENT: other - no chest pains, no cough Gastrointestinal: PRESENT: abdominal pain, nausea, vomiting Physical Exam Vital Signs: Temp Pulse Resp BP Pulse Ox 97.8 F 71 17 107/87 H 97 02/13/18 07:13 02/13/18 07:13 02/13/18 07:13 02/13/18 07:13 02/13/18 07:13 Intake & Output 02/12/18 02/13/18 02/14/18 06:59 06:59 06:59 Weight 116.573 kg General appearance: PRESENT: no acute distress Head exam: PRESENT: atraumatic Eye exam: PRESENT: conjunctiva pink Mouth exam: PRESENT: moist Neck exam: PRESENT: full ROM Respiratory exam: PRESENT: clear to auscultation nathan Cardiovascular exam: PRESENT: RRR Pulses: PRESENT: normal radial pulses Vascular exam: PRESENT: normal capillary refill GI/Abdominal exam: PRESENT: soft, other - non tender. Difficult to palpate hernia though seen on CT scan just above the umbilicus. Patient is obese Rectal exam: PRESENT: deferred Extremities exam: PRESENT: full ROM Musculoskeletal exam: PRESENT: ambulatory Neurological exam: PRESENT: alert, oriented to person, oriented to place, oriented to time, oriented to situation Psychiatric exam: PRESENT: appropriate affect Skin exam: PRESENT: normal color, warm Results Laboratory Results: 02/13/18 00:12 02/13/18 00:12 02/13/18 02/13/18 02/13/18 00:12 00:12 02:06 WBC 8.2 RBC 4.36 Hgb 12.8 Hct 37.7 MCV 87 MCH 29.2 MCHC 33.8 RDW 14.2 H Plt Count 218 Seg Neutrophils % 89.5 H Lymphocytes % 5.9 L Monocytes % 4.2 Eosinophils % 0.1 Basophils % 0.3 Absolute Neutrophils 7.3 Absolute Lymphocytes 0.5 Absolute Monocytes 0.3 Absolute Eosinophils 0.0 Absolute Basophils 0.0 Sodium 138.3 Potassium 3.7 Chloride 105 Carbon Dioxide 27 Anion Gap 6 BUN 28 H Creatinine 0.88 Est GFR ( Amer) > 60 Est GFR (Non-Af Amer) > 60 Glucose 169 H Calcium 9.0 Total Bilirubin 0.5 AST 16 ALT 27 Alkaline Phosphatase 76 Total Protein 6.1 L Albumin 3.7 Lipase 106.1 Urine Color YELLOW Urine Appearance SLIGHTLY-CLOUDY Urine pH 5.0 Ur Specific Wolsey 1.018 Urine Protein NEGATIVE Urine Glucose (UA) NEGATIVE Urine Ketones NEGATIVE Urine Blood NEGATIVE Urine Nitrite NEGATIVE Ur Leukocyte Esterase NEGATIVE Urine WBC (Auto) 0 Urine RBC (Auto) 0 Impressions: Abdomen/Pelvis CT 02/13/18 00:00 IMPRESSION: 1. Low-grade partial bowel obstruction or ileus associated with ventral, supraumbilical small bowel hernia which appears at least partially reducible. 2. There is an additional upper abdominal partial ventral hernia of transverse colon. 3. Moderate hiatal hernia. Assessment & Plan - Diagnosis (1) Incarcerated ventral hernia Is this a current diagnosis for this admission?: Yes - Time Time Spent: 30 to 50 Minutes - Plan Summary Plan Summary: Incarcerated ventral hernia had spontaneous reduction after CT scan. Pt symptoms subsided and just had a BM. Patient to be discharged to be followed up in the surgical clinic this week. Instructed to avoid straining or lifting.
== END 2018-02-13 07:24 | disposition home or self-care (01) ==
LOC: ER 22:42
DX: K43.9 Ventral hernia without obstruction or gangrene (principal); R10.30 Lower abdominal pain, unspecified; R11.10 Vomiting, unspecified; I10 Essential (primary) hypertension; Z85.048 Personal history of other malignant neoplasm of rectum, rectosigmoid junction, and anus; Z87.891 Personal history of nicotine dependence
CPT/HCPCS: 99284; 96360; 36415; 83690; 85025; 80053; 81001; 74177; A9270; J7030; S0119

== ENCOUNTER 2018-04-20 05:19 | Day surgery (SDC) | payer MEDICARE ==
[2018-04-14 09:57] LABS: HEMOGLOBIN 12.3 g/dL (12.0-15.5); MEAN CORPUSCULAR HEMOGLOBIN 30.3 pg (27.0-33.4); MEAN CORPUSCULAR VOLUME 87 fl (80-97); PLATELET COUNT 195 10^3/uL (150-450); RED BLOOD COUNT 4.05 10^6/uL (3.72-5.28); RED CELL DISTRIBUTION WIDTH 14.3 % (11.5-14.0); WHITE BLOOD COUNT 4.6 10^3/uL (4.0-10.5)
--- NOTE | 2018-04-14 21:51 | EKG REPORT ---
SEVERITY:- NORMAL ECG - SINUS RHYTHM : Confirmed by: Ludy Curtis MD 14-Apr-2018 21:50:03
[~2018-04-20 05:19] MED LIST: ACETAMINOPHEN 325 MG TABLET PO PRN
[2018-04-20] MEDS ORDERED: PROPOFOL INJ 200 MG/20 ML VIAL IV ONE (07:09)
[2018-04-20] MEDS ORDERED: ONDANSETRON HCL INJ/PF 4 MG/2 ML SDV IV PRN (07:49)
[2018-04-20] MEDS ORDERED: PROMETHAZINE HCL INJ 25 MG/1 ML VIAL IV PRN (07:49)
[2018-04-20] MEDS ORDERED: DIPHENHYDRAMINE HCL 50 MG/ML VIAL IV PRN (07:49)
--- NOTE | 2018-04-20 08:17 | Discharge Summary ---
Discharge Summary (SDC) - Discharge Final Diagnosis: Multiple rectal polyps status post polypectomy Date of Surgery: 04/20/18 Discharge Date: 04/20/18 Condition: Good Treatment or Instructions: [facility] [place] [id number] POST ENDOSCOPY DISCHARGE INSTRUCTIONS 1. Diet: Start clear liquids that a regular diet as tolerated. 2. Resume all preoperative medications. All oral anticoagulants and aspirins can be resumed 24 hours after procedure. 3. If a polypectomy was performed some bleeding per rectum may occur. This should stop within 3 days. If not, please contact the office. 4. If you had a colonoscopy you may experience some bloating and delayed return of normal bowel function for several days, your regular bowel movement pattern should resume within a week. 5. Please contact [facility] at to make an appointment with Dr. Elise for 1 to 3 weeks following procedure. 6. If you have any questions or concerns regarding your care,treatment plan or follow up, please contact our office. 7. Follow-up endoscopy will be determined by the final path report on the large polyp removed from the rectum. Referrals: VENKATA DEMPSEY PA [Primary Care Provider] - Discharge Diet: As Tolerated Discharge Activity: Activity As Tolerated Home Care Assistance: None Needed Report the Following to Your Physician Immediately: Shortness of Breath, Increase in Pain, Fever over 101 Degrees
--- NOTE | 2018-04-20 08:25 | Operative Report ---
Operative Report DATE OF SURGERY: 04/20/18 PREOPERATIVE DIAGNOSIS: 1. History of stage I colon cancer status post left colectomy. 2. Personal history of colon polyps POSTOPERATIVE DIAGNOSIS: Same with multiple rectal polyps OPERATION: 1. Total colonoscopy to cecum with photodocumentation. 2. Upper rectal polypectomy with hot snare device and retrieval of specimen. 3. Segmental, piecemeal resection of large rectal polyp centimeters from anal verge. 4. Mid rectal polypectomy with hot snare device. SURGEON: MAYURI BRICE ANESTHESIA: LMAC TISSUE REMOVED OR ALTERED: Multiple polyps COMPLICATIONS: None ESTIMATED BLOOD LOSS: Minimal INTRAOPERATIVE FINDINGS: See below PROCEDURE: Obtaining informed consent the patient was taken from the preoperative holding area to the main endoscopy suite where monitoring devices were attached to the patient. Plan and surgical timeout were conducted The patient was placed in the left lateral decubitus position with knees to chest. A perianal examination was performed. There was no visible or palpable anorectal pathology. Perianal tissue was minimally excoriated. The flexible adult colonoscope was advanced through the anal rectal canal, all the way to the cecum. Visualization of the cecum was achieved and the ileocecal valve, the appendiceal orifice and transillumination of the anterior abdominal wall. This was an excellent study on the well-prepped bowel. The colonoscope was withdrawn slowly and methodically checked and the mucosa carefully. I could not see evidence of previous left colon resection. There was no evidence of tumor, stricture, bleeding. There was no evidence of diverticuloses. In the opera them at approximately 20 cm from the anal verge was a pedunculated polyp on a narrow stalk approximately 6 mm in diameter. It was removed with a hot snare device, successful retrieval of the specimen, and successful cauterization of the polypectomy site. In the lower rectum, above the dentate line, approximately 8 to 9 cm above the anal verge was a 2-1/2 cm transversely oriented moderately pedunculated elongated polyp with some irregularity. Photos taken. He had a moderately broad base. We elected to remove it in a piecemeal fashion using hot snare device. 3 successive snare applications and heat were delivered and 3-4 fragments of the polyp were removed and placed in the single container. The did not attempt to remove the base of the polyp. Specimen fragments were sent as low rectal polyp. In addition there was a very small polyp, 4-5 cm cephalad to this area, which was removed with snare device successfully incentive the same container. Bleeding from the polypectomy site was minimal. Photos were taken. The scope was slowly withdrawn through the anal rectal canal. Complete visualization of the rectum was achieved with photodocumentation. The scope was withdrawn to the patient's anus. The patient tolerated the procedure well and was taken to the recovery area in stable condition. Recommendations for follow-up endoscopy, additional surgery if necessary, Discharge instructions provided.
[2018-04-20 09:59] VITALS: BP 155/59
== END 2018-04-20 09:50 | disposition home or self-care (01) ==
LOC: OROUT 05:19
PROVIDERS: ATTEND Surgery
DX: Z12.11 Encounter for screening for malignant neoplasm of colon (principal); D12.8 Benign neoplasm of rectum; Z86.010 Personal history of colon polyps; Z85.038 Personal history of other malignant neoplasm of large intestine; E66.9 Obesity, unspecified; I10 Essential (primary) hypertension; Z96.659 Presence of unspecified artificial knee joint; I20.9 Angina pectoris, unspecified; Z86.711 Personal history of pulmonary embolism; Z79.891 Long term (current) use of opiate analgesic; Z79.82 Long term (current) use of aspirin; Z90.49 Acquired absence of other specified parts of digestive tract
CPT/HCPCS: 45385; 93005; 36415 ×2; 84132; 85027; 88305 ×2; 93010; J2704; 811

== ENCOUNTER → 2018-05-25 | Outpatient (CLI) | payer MEDICARE ==
[2018-05-25 12:25] LABS: ALANINE AMINOTRANSFERASE 29 U/L (9-52); ALBUMIN 3.7 g/dL (3.5-5.0); ALKALINE PHOSPHATASE 77 U/L (38-126); ANION GAP 9 (5-19); ASPARTATE AMINO TRANSFERASE 18 U/L (14-36); BILIRUBIN,DIRECT 0.2 mg/dL (0.0-0.4); BILIRUBIN,TOTAL 0.9 mg/dL (0.2-1.3); BLOOD UREA NITROGEN 19 mg/dL (7-20); CARBON DIOXIDE 30 mmol/L (22-30); CHLORIDE 103 mmol/L (98-107); CHOLESTEROL 123.91 mg/dL (0-200); GLUCOSE 91 mg/dL (75-110); POTASSIUM 4.2 mmol/L (3.6-5.0); SODIUM 141.6 mmol/L (137-145); TOTAL PROTEIN 6.2 g/dL (6.3-8.2); TRIGLYCERIDES 80 mg/dL (<150)
[2018-05-25 12:37] LABS: DIRECT LDL 49 mg/dL (<100)
== END ==
LOC: OD 10:56
PROVIDERS: ATTEND Internal Medicine Cardiovascular Disease
DX: E78.00 Pure hypercholesterolemia, unspecified (principal); R00.2 Palpitations; E66.09 Other obesity due to excess calories; Z79.899 Other long term (current) drug therapy
CPT/HCPCS: 36415; 80048; 80061; 80076; 83735

== ENCOUNTER 2018-09-14 05:16 | Day surgery (SDC) | payer MEDICARE ==
[2018-09-06 10:13] LABS: HEMATOCRIT 36.8 % (36.0-47.0); HEMOGLOBIN 12.6 g/dL (12.0-15.5); MEAN CORPUSCULAR HEMOGLOBIN 29.8 pg (27.0-33.4); MEAN CORPUSCULAR HGB CONC 34.3 g/dL (32.0-36.0); MEAN CORPUSCULAR VOLUME 87 fl (80-97); PLATELET COUNT 214 10^3/uL (150-450); RED BLOOD COUNT 4.24 10^6/uL (3.72-5.28); RED CELL DISTRIBUTION WIDTH 14.5 % (11.5-14.0); WHITE BLOOD COUNT 4.8 10^3/uL (4.0-10.5)
[~2018-09-14 05:16] MED LIST changes: -ACETAMINOPHEN 325 MG TABLET PO PRN; +LACTATED RINGERS 1000 ML IV PRN; +LIDOCAINE 0.5% INJ-PF (5 MG/ML) 50 ML SDV SUBCUT PRN
[2018-09-14] MEDS ORDERED: PROPOFOL INJ 200 MG/20 ML VIAL IV ONE (07:22)
[2018-09-14] MEDS ORDERED: KETAMINE HCL INJ 500 MG/10 ML VIAL ONE (07:22)
[2018-09-14] MEDS ORDERED: MIDAZOLAM 2 MG/2 ML INJ ONE (07:22)
[2018-09-14] MEDS ORDERED: MEPERIDINE HCL/PF INJ 25 MG/1 ML DISP.SYRIN IV PRN (07:40)
[2018-09-14] MEDS ORDERED: PROMETHAZINE HCL INJ 25 MG/1 ML VIAL IV PRN ×2 (07:40)
[2018-09-14] MEDS ORDERED: DIPHENHYDRAMINE HCL 50 MG/ML VIAL IV PRN (07:40)
[2018-09-14] MEDS ORDERED: FENTANYL CITRATE INJ/PF 100 MCG/2 ML AMPUL IV PRN ×3 (07:40)
[2018-09-14] MEDS ORDERED: OXYCODONE-ACETAMINOPHEN 5-325 MG TABLET PO PRN ×2 (07:40)
[2018-09-14 11:19] VITALS: BP 125/71
--- NOTE | 2018-09-14 12:59 | Discharge Summary ---
Discharge Summary (SDC) - Discharge Final Diagnosis: Large rectal polyp. Date of Surgery: 09/14/18 Discharge Date: 09/14/18 Condition: Stable Forms: ASU Anesthesia D/C Instruction, Discharge POC-Surgical Service Referrals: HENRY AKHTAR MD [ACTIVE STAFF] - 09/25/18 8:45 am Discharge Diet: As Tolerated Respiratory Treatments at Home: Deep Breathing/Coughing, Incentive Spirometer Discharge Activity: Activity As Tolerated, Balance Activity w/Rest Home Care Assistance: None Needed Report the Following to Your Physician Immediately: Shortness of Breath, Nausea , Vomiting, Increase in Pain, Fever over 101 Degrees, Unusual Bleeding, Redness , Swelling, Warmth, IV Site Infection Signs
--- NOTE | 2018-09-14 13:10 | Operative Report ---
Nonrecallable Operative Report DATE OF SURGERY: 09/14/18 PREOPERATIVE DIAGNOSIS: Large rectal polyp POSTOPERATIVE DIAGNOSIS: 1. Large, sessile rectal polyp at 7 cm. 2. Small rectal polyp at 10 cm. OPERATION: 1. Flexible sigmoidoscopy to 35 cm. 2. Submucosal injection of saline to facilitate endoscopic mucosal resection. 3. Snare polypectomy ( endoscopic mucosal resection) of large polyp at 7 cm. 4. Hot biopsy of small rectal polyp at 10 cm. SURGEON: HENRY AKHTAR ANESTHESIA: LMAC TISSUE REMOVED OR ALTERED: 1. Large sessile polyp at 7 cm, removed piecemeal with hot snare. 2. Small polyp at 10 cm, removed via hot biopsy forcep COMPLICATIONS: None apparent ESTIMATED BLOOD LOSS: Minimal PROCEDURE: Procedure in detail: After informed consent was obtained, the patient was brought to the operating room and laid in the left lateral decubitus position. The endoscope was inserted into the rectum. There was some solid and liquid stool left within the rectum. The scope was passed up to 35 cm where copious irrigation and suctioning was performed. The colon was cleaned adequately to survey the mucosa. The scope was withdrawn from 35 cm down to the rectum. At 10 cm from the anal verge a small diminutive polyp was identified and removed via hot biopsy forcep. The scope was then pulled down to approximately 7 cm from the anal verge where a large, sessile polyp was identified. This is likely the polyp that was identified on previous colonoscopy. The polyp covered approximately one quarter of the circumferential surface area of the rectum. Saline was used to inject submucosally to elevate the polyp away from the muscularis. Next, a hexagonal hot snare was used to remove the polyp in its entirety, with additional margin. Bleeding was minimal. After the polyp was completely removed, photo documentation was obtained. The scope was then removed from the patient, and the procedure was concluded. Condition: Stable.
== END 2018-09-14 10:05 | disposition home or self-care (01) ==
LOC: OROUT 05:16
PROVIDERS: ATTEND Surgery
DX: D12.8 Benign neoplasm of rectum (principal); K63.5 Polyp of colon; Z85.038 Personal history of other malignant neoplasm of large intestine; I10 Essential (primary) hypertension; E66.9 Obesity, unspecified; Z86.010 Personal history of colon polyps; Z86.711 Personal history of pulmonary embolism; Z79.899 Other long term (current) drug therapy; Z90.49 Acquired absence of other specified parts of digestive tract; Z68.41 Body mass index [BMI] 40.0-44.9, adult
CPT/HCPCS: 45335; 45338; 45333; 36415 ×2; 84132; 85027; 88305 ×2; J2250; J3490; J2704; 811

== ENCOUNTER → 2018-10-10 | Outpatient (CLI) | payer MEDICARE ==
--- NOTE | 2018-10-10 15:21 | WOMENS IMAGING REPORT ---
EXAM DESCRIPTION: RIGHT DIAGNOSTIC MAMMO W/CAD; U/S BREAST UNILAT LIMITED COMPLETED DATE/TIME: 10/10/2018 12:38 pm; 10/10/2018 1:11 pm REASON FOR STUDY: RIGHT BREAST PAIN; RT BREAST PAIN,N64.4 N64.4 MASTODYNIA COMPARISON: Multiple since 2010 TECHNIQUE: Standard craniocaudal, 90 mediolateral and mediolateral oblique images of the breast rec orded with digital acquisition. Right breast ultrasound was also performed. LIMITATIONS: None. FINDINGS: BREAST: Right MASSES: No suspicious masses. CALCIFICATIONS: No new or suspicious calcifications. ARCHITECTURAL DISTORTION: None. DEVELOPING DENSITY: None. ASYMMETRY: None noted. OTHER: No other significant findings. Read with the assistance of CAD. .[facility] - R2 Cenova Version 1.3 .[facility] Imaging - R2 Cenova Version 1.3 .[facility] Imaging - R2 Cenova Version 2.[address] - R2 Cenova Version 2.4 .[facility] - R2 Director Of Restaurants Version 9.2 IMPRESSION: No mammographic or sonographic evidence for malignancy right breast BREAST DENSITY: a. The breasts are almost entirely fatty. BIRAD: 1 Negative. RECOMMENDATION: RECOMMENDED FOLLOW UP: Please continue bilateral screening mammography/ tomosynthesi s in January 2019 SPECIFIC INTERVENTION/IMAGING/CONSULTATION RECOMMENDED:No additional intervention/ imaging/consultati on needed at this time. COMMUNICATION:Patient notified by letter COMMENT: The patient has been notified of the results by letter per SA requirements. Additional no tification policies are in place for contacting patient with suspicious or incomplete findings. Quality ID #225: The [employer] recommends an annual screening mammogram for women aged 40 years or over. This facility utilizes a reminder system to ensure that all patients receive reminder letters, and/or direct phone calls for appointments. This includes reminders for routine scr eening mammograms, diagnostic mammograms, or other Breast Imaging Interventions when appropriate. Th is patient will be placed in the appropriate reminder system. The [employer] (ACR) has developed recommendations for screening MRI of the breast s in certain patient populations, to be used in conjunction with mammography. Breast MRI surveillanc e may be appropriate for women with more than 20% lifetime risk of developing breast cancer as deter mined by genetic testing, significant family history of the disease, or history of mantle radiation f or Hodgkins Disease. ACR Practice Guidelines 2008. TECHNICAL DOCUMENTATION: FINDING NUMBER: (1) ASSESSMENT: (1) JOB ID: [id number] [employer]- All Rights Reserved Reading location - IP/workstation name: [email or web address]
--- NOTE | 2018-10-10 15:21 | WOMENS IMAGING REPORT ---
EXAM DESCRIPTION: RIGHT DIAGNOSTIC MAMMO W/CAD; U/S BREAST UNILAT LIMITED COMPLETED DATE/TIME: 10/10/2018 12:38 pm; 10/10/2018 1:11 pm REASON FOR STUDY: RIGHT BREAST PAIN; RT BREAST PAIN,N64.4 N64.4 MASTODYNIA COMPARISON: Multiple since 2010 TECHNIQUE: Standard craniocaudal, 90 mediolateral and mediolateral oblique images of the breast rec orded with digital acquisition. Right breast ultrasound was also performed. LIMITATIONS: None. FINDINGS: BREAST: Right MASSES: No suspicious masses. CALCIFICATIONS: No new or suspicious calcifications. ARCHITECTURAL DISTORTION: None. DEVELOPING DENSITY: None. ASYMMETRY: None noted. OTHER: No other significant findings. Read with the assistance of CAD. .[facility] - R2 Cenova Version 1.3 .[facility] Imaging - R2 Cenova Version 1.3 .[facility] Imaging - R2 Cenova Version 2.4 .[facility] - R2 Cenova Version 2.4 .[facility] - R2 [employer] Version 9.2 IMPRESSION: No mammographic or sonographic evidence for malignancy right breast BREAST DENSITY: a. The breasts are almost entirely fatty. BIRAD: 1 Negative. RECOMMENDATION: RECOMMENDED FOLLOW UP: Please continue bilateral screening mammography/ tomosynthesi s in January 2019 SPECIFIC INTERVENTION/IMAGING/CONSULTATION RECOMMENDED:No additional intervention/ imaging/consultati on needed at this time. COMMUNICATION:Patient notified by letter COMMENT: The patient has been notified of the results by letter per SA requirements. Additional no tification policies are in place for contacting patient with suspicious or incomplete findings. Quality ID #225: The [employer] recommends an annual screening mammogram for women aged 40 years or over. This facility utilizes a reminder system to ensure that all patients receive reminder letters, and/or direct phone calls for appointments. This includes reminders for routine scr eening mammograms, diagnostic mammograms, or other Breast Imaging Interventions when appropriate. Th is patient will be placed in the appropriate reminder system. The [employer] (ACR) has developed recommendations for screening MRI of the breast s in certain patient populations, to be used in conjunction with mammography. Breast MRI surveillanc e may be appropriate for women with more than 20% lifetime risk of developing breast cancer as deter mined by genetic testing, significant family history of the disease, or history of mantle radiation f or Hodgkins Disease. ACR Practice Guidelines 2008. TECHNICAL DOCUMENTATION: FINDING NUMBER: (1) ASSESSMENT: (1) JOB ID: [id number] [employer]- All Rights Reserved Reading location - IP/workstation name: [email or web address]
== END ==
LOC: WI 12:20
PROVIDERS: ATTEND Physician Assistant
DX: N64.4 Mastodynia (principal)
CPT/HCPCS: 76642

== ENCOUNTER → 2018-11-16 | Outpatient (CLI) | payer MEDICARE ==
--- NOTE | 2018-11-16 10:40 | RADIOLOGY REPORT (SQ) ---
EXAM DESCRIPTION: CHEST PA/LATERAL COMPLETED DATE/TIME: 11/16/2018 9:23 am REASON FOR STUDY: COUGH COMPARISON: None. EXAM PARAMETERS: NUMBER OF VIEWS: two views TECHNIQUE: Digital Frontal and Lateral radiographic views of the chest acquired. RADIATION DOSE: NA LIMITATIONS: none FINDINGS: LUNGS AND PLEURA: No opacities, masses or pneumothorax. No pleural effusion. MEDIASTINUM AND HILAR STRUCTURES: No masses or contour abnormalities. HEART AND VASCULAR STRUCTURES: Heart normal size. No evidence for failure. BONES: No acute findings. HARDWARE: None in the chest. OTHER: No other significant finding. IMPRESSION: NO SIGNIFICANT RADIOGRAPHIC FINDING IN THE CHEST. TECHNICAL DOCUMENTATION: JOB ID: [id number] [employer]- All Rights Reserved Reading location - IP/workstation name: [facility]-RR
== END ==
LOC: OD 09:06
PROVIDERS: ATTEND Physician Assistant
DX: R05 Cough (principal)
CPT/HCPCS: 71046

== ENCOUNTER → 2018-11-27 | Outpatient (CLI) | payer MEDICARE ==
[2018-11-27 11:16] LABS: ALANINE AMINOTRANSFERASE 22 U/L (9-52); ALBUMIN 3.7 g/dL (3.5-5.0); ALKALINE PHOSPHATASE 72 U/L (38-126); ANION GAP 7 (5-19); ASPARTATE AMINO TRANSFERASE 17 U/L (14-36); BILIRUBIN,DIRECT 0.3 mg/dL (0.0-0.4); BILIRUBIN,TOTAL 0.8 mg/dL (0.2-1.3); BLOOD UREA NITROGEN 20 mg/dL (7-20); CARBON DIOXIDE 32 mmol/L (22-30); CHLORIDE 101 mmol/L (98-107); CHOLESTEROL 141.98 mg/dL (0-200); GLUCOSE 92 mg/dL (75-110); SODIUM 140.3 mmol/L (137-145); TOTAL PROTEIN 6.1 g/dL (6.3-8.2); TRIGLYCERIDES 86 mg/dL (<150)
[2018-11-27 11:27] LABS: DIRECT LDL 75 mg/dL (<100)
== END ==
LOC: OD 09:54
PROVIDERS: ATTEND Internal Medicine Cardiovascular Disease
DX: I10 Essential (primary) hypertension (principal); E78.00 Pure hypercholesterolemia, unspecified; E66.09 Other obesity due to excess calories; Z79.899 Other long term (current) drug therapy
CPT/HCPCS: 36415; 80048; 80061; 80076; 83036

== ENCOUNTER → 2019-02-15 | Outpatient (CLI) | payer MEDICARE ==
[2019-02-15 12:32] LABS: ALANINE AMINOTRANSFERASE 21 U/L (9-52); ALBUMIN 3.7 g/dL (3.5-5.0); ALKALINE PHOSPHATASE 83 U/L (38-126); ANION GAP 7 (5-19); ASPARTATE AMINO TRANSFERASE 17 U/L (14-36); BILIRUBIN,DIRECT 0.3 mg/dL (0.0-0.4); BILIRUBIN,TOTAL 0.9 mg/dL (0.2-1.3); BLOOD UREA NITROGEN 22 mg/dL (7-20); CALCIUM 9.3 mg/dL (8.4-10.2); CARBON DIOXIDE 30 mmol/L (22-30); CHLORIDE 102 mmol/L (98-107); CHOLESTEROL 120.79 mg/dL (0-200); GLUCOSE 80 mg/dL (75-110); POTASSIUM 4.3 mmol/L (3.6-5.0); SODIUM 138.9 mmol/L (137-145); TOTAL PROTEIN 6.3 g/dL (6.3-8.2); TRIGLYCERIDES 105 mg/dL (<150)
[2019-02-15 12:44] LABS: DIRECT LDL 58 mg/dL (<100)
== END ==
LOC: OD 10:40
PROVIDERS: ATTEND Internal Medicine Cardiovascular Disease
DX: E78.00 Pure hypercholesterolemia, unspecified (principal); I10 Essential (primary) hypertension; Z79.899 Other long term (current) drug therapy
CPT/HCPCS: 36415; 80048; 80061; 80076

== ENCOUNTER 2019-02-20 08:37 | Day surgery (SDC) | payer MEDICARE ==
[~2019-02-20 08:37] MED LIST changes: +DORZOLAMIDE HCL 2%/TIMOLOL MALEAT 0.5% OPH SOLN 10 ML OS PRN; +KETOROLAC TROMETHAMINE 0.45% 4 DROP/0.4 ML DROPERETTE OS PRN; -LACTATED RINGERS 1000 ML IV PRN; -LIDOCAINE 0.5% INJ-PF (5 MG/ML) 50 ML SDV SUBCUT PRN
[2019-02-20] MEDS: BESIFLOXACIN HCL 0.6% OPH SUSP 5 ML BOTTLE OS PRN ×4 (09:36→10:44)
[2019-02-20] MEDS: CYCLOPENTOLATE 0.2%/PHENYLEPHRINE 1% OPH SOLN 2 ML OS PRN ×3 (09:36→09:56)
[2019-02-20] MEDS: TROPICAMIDE 1% OPH SOLN 3 ML OS PRN ×3 (09:36→09:56)
[2019-02-20] MEDS: TETRACAINE HCL 0.5% OPH SOLN 0.6 ML DROPERETTE OS PRN ×2 (09:37→09:56)
[2019-02-20] MEDS: LIDOCAINE 4% INJ/PF (40 MG/ML) 5 ML AMPUL OS PRN ×2 (10:20)
[2019-02-20] MEDS: BUPIVACAINE HCL 0.75% INJ/PF (7.5 MG/1 ML) 10 ML SDV OS PRN ×2 (10:20)
[2019-02-20] MEDS ORDERED: MIDAZOLAM 2 MG/2 ML INJ ONE (10:25)
[2019-02-20] MEDS: EPINEPHRINE INJ/PF 1 MG/1 ML AMPULE ONE ×2 (10:31)
[2019-02-20] MEDS: LIDOCAINE 1% INJ-PF (10 MG/ML) 30 ML SDV ONE ×2 (10:31)
[2019-02-20] MEDS: CHONDR SU A NA/HYALUR INTRAOC KIT (SURGICARE) ONE ×2 (10:31)
--- NOTE | 2019-02-20 11:10 | [facility] OPERATIVE REPORT E ---
[facility] Operative Report NAME: YUE MARTINEZ AGE: 73Y DATE OF SURGERY: 02/20/2019 ROOM: PREOPERATIVE DIAGNOSIS: Cataract, left eye. POSTOPERATIVE DIAGNOSIS: Cataract, left eye. PROCEDURE PERFORMED: Phacoemulsification with posterior chamber intraocular lens, left eye. SURGEON: ESAU ALEX M.D. ANESTHESIA: Topical with MAC. INDICATIONS FOR SURGERY: Difficulty reading words on TV and driving. DESCRIPTION OF PROCEDURE: The patient was brought to the Operating Room and placed on the operative table. Following tetracaine drops, topical anesthesia was administered. This consisted of instrument wipe pledgets soaked in a solution of 4% Xylocaine mixed with 0.75% Marcaine in a 1:2 ratio. A 2 x 1 cm pledget was placed in the superior fornix. A 1 x 1 cm pledget was placed in the inferior fornix. The eye was patched shut for 5 minutes. The patch was removed. The eye was sterilely prepped and draped in the usual manner. Lid speculum was placed in the eye. The pledgets were removed. 4-0 black silk sutures were placed around the superior and the inferior rectus muscles to be used as traction. A conjunctival peritomy was made at the 10 o'clock position. Hemostasis was obtained with bipolar cautery. A posterior limbal groove was created using a crescent knife and dissected anteriorly towards the cornea. A sharp point blade was used to create a paracentesis site at the 2 o'clock position. A 2.4 mm keratome was used to enter the anterior chamber through the groove. Viscoelastic was injected into the anterior chamber. An anterior capsulotomy was performed using Utrata forceps in a capsulorrhexis fashion. Hydrodissection and hydrodelineation were performed. Phacoemulsification was performed in [id number] technique. A total of 6.21 CDE phaco time was used. Following this, the I/A unit was used to remove residual cortex. Viscoelastic was injected into the capsular bag. Intraocular lens model SN60WF, 22.0 diopters, serial number [id number] was placed in the capsular bag. The I/A unit was used to remove residual viscoelastic. The wound was seen to be watertight under high and low pressure, and no sutures were placed. The intraocular lens was well centered. The pressure was adjusted in the eye to normal pressure. The 4-0 black silk sutures and lid speculum were removed. The eye was shielded after Besivance drops were placed. The patient tolerated the procedure well and was sent to the Recovery Room in good condition. A drop of Cosopt was placed in the eye at the end of the surgery. DICTATING PHYSICIAN: ESAU ALEX M.D. [id number] PHY#: [id number] ID: [id number] JOB#: [id number] ACCT: [id number] cc:ESAU ALEX M.D. >
--- NOTE | 2019-02-20 11:10 | [facility] DISCHARGE SUMMARY E ---
[facility] Discharge Summary NAME: YUE MARTINEZ AGE: 73Y ADMITTED: 02/20/2019 DISCHARGED: 02/20/2019 HOSPITAL COURSE: The patient is a 73-year-old who underwent uneventful cataract extraction with intraocular lens implant, left eye, on 02/20/2019. She will be discharged to home. She is instructed to resume preoperative medications, to take Tylenol as needed for discomfort, to keep her eye shielded, to use Durezol, Prolensa, and Besivance at 3 p.m. and 8 p.m., and to follow up in my office in 1 day. DICTATING PHYSICIAN: ESAU ALEX M.D. [id number] PHY#: [id number] ID: [id number] JOB#: [id number] ACCT: [id number] cc:ESAU ALEX M.D. >
== END 2019-02-20 11:24 | disposition home or self-care (01) ==
LOC: SC 08:37
PROVIDERS: ATTEND Ophthalmology
DX: H25.12 Age-related nuclear cataract, left eye (principal); H25.811 Combined forms of age-related cataract, right eye; H35.363 Drusen (degenerative) of macula, bilateral; H01.00A Unspecified blepharitis right eye, upper and lower eyelids; H01.00B Unspecified blepharitis left eye, upper and lower eyelids; H04.123 Dry eye syndrome of bilateral lacrimal glands; J44.9 Chronic obstructive pulmonary disease, unspecified; I49.9 Cardiac arrhythmia, unspecified; E66.9 Obesity, unspecified; F17.210 Nicotine dependence, cigarettes, uncomplicated; Z85.038 Personal history of other malignant neoplasm of large intestine; Z79.82 Long term (current) use of aspirin; Z79.891 Long term (current) use of opiate analgesic; Z79.899 Other long term (current) drug therapy; Z68.42 Body mass index [BMI] 45.0-49.9, adult
CPT/HCPCS: 66984; V2632; J2250; J3490 ×4; A9270; J0171; 142

== ENCOUNTER 2019-03-13 08:33 | Day surgery (SDC) | payer MEDICARE ==
[~2019-03-13 08:33] MED LIST changes: +BUPIVACAINE HCL 0.75% INJ/PF (7.5 MG/1 ML) 10 ML SDV OD PRN; +CHONDR SU A NA/HYALUR INTRAOC KIT (SURGICARE) ONE; -DORZOLAMIDE HCL 2%/TIMOLOL MALEAT 0.5% OPH SOLN 10 ML OS PRN; +EPINEPHRINE INJ/PF 1 MG/1 ML AMPULE ONE; +KETOROLAC TROMETHAMINE 0.45% 4 DROP/0.4 ML DROPERETTE OD PRN; -KETOROLAC TROMETHAMINE 0.45% 4 DROP/0.4 ML DROPERETTE OS PRN; +LIDOCAINE 1% INJ-PF (10 MG/ML) 30 ML SDV ONE; +LIDOCAINE 4% INJ/PF (40 MG/ML) 5 ML AMPUL OD PRN
[2019-03-13] MEDS: TROPICAMIDE 1% OPH SOLN 3 ML OD PRN ×3 (10:10→10:39)
[2019-03-13] MEDS: CYCLOPENTOLATE 0.2%/PHENYLEPHRINE 1% OPH SOLN 2 ML OD PRN ×3 (10:10→10:39)
[2019-03-13] MEDS: BESIFLOXACIN HCL 0.6% OPH SUSP 5 ML BOTTLE OD PRN ×4 (10:11→11:09)
[2019-03-13] MEDS: TETRACAINE HCL 0.5% OPH SOLN 0.6 ML DROPERETTE OD PRN ×2 (10:12→10:40)
[2019-03-13] MEDS ORDERED: MIDAZOLAM 2 MG/2 ML INJ ONE (10:21)
[2019-03-13] MEDS ORDERED: FENTANYL CITRATE INJ/PF 100 MCG/2 ML AMPUL ONE (10:22)
[2019-03-13] MEDS: DORZOLAMIDE HCL 2%/TIMOLOL MALEAT 0.5% OPH SOLN 10 ML OD PRN ×2 (11:02→11:09)
--- NOTE | 2019-03-13 11:19 | [facility] DISCHARGE SUMMARY E ---
[facility] Discharge Summary NAME: YUE MARTINEZ AGE: 73Y ADMITTED: 03/13/2019 DISCHARGED: 03/13/2019 FINAL DIAGNOSIS: Cataract, right eye. HOSPITAL COURSE: The patient is a 73-year-old lady who underwent uneventful cataract extraction with intraocular lens implant, right eye, on 03/13/2019. She will be discharged to home. She was instructed to resume preoperative medications; to take Tylenol as needed for discomfort; to keep her eye shielded; to use Pred Forte, Prolensa, and Vigamox at 3 p.m. and 8 p.m.; and to follow up in my office in 1 day. DICTATING PHYSICIAN: ESAU ALEX M.D. [id number] PHY#: [id number] ID: [id number] JOB#: [id number] ACCT: [id number] cc:ESAU ALEX M.D. >
--- NOTE | 2019-03-13 11:19 | [facility] OPERATIVE REPORT E ---
[facility] Operative Report NAME: YUE MARTINEZ AGE: 73Y DATE OF SURGERY: 03/13/2019 ROOM: PREOPERATIVE DIAGNOSIS: Cataract, right eye. POSTOPERATIVE DIAGNOSIS: Cataract, right eye. PROCEDURE PERFORMED: Phacoemulsification with posterior chamber intraocular lens, right eye. SURGEON: ESAU ALEX M.D. ANESTHESIA: Topical with MAC. INDICATIONS FOR SURGERY: Difficulty reading small print. PROCEDURE: The patient was brought to the operating room and placed on the operative table. Following tetracaine drops, topical anesthesia was administered. This consisted of instrument wipe pledgets soaked in a solution of 4% Xylocaine mixed with 0.75% Marcaine in a 1:2 ratio. A 2 x 1 cm pledget was placed in the superior fornix. A 1 x 1 cm pledget was placed in the inferior fornix. The eye was patched shut for 5 minutes. The patch was removed. The eye was sterilely prepped and draped in the usual manner. Lid speculum was placed in the eye. The pledgets were removed and 4-0 black silk sutures were placed around the superior and the inferior rectus muscles to be used as traction. A conjunctival peritomy was made at the 10 o'clock position. Hemostasis was obtained with bipolar cautery. A posterior limbal groove was created using a crescent knife and dissected anteriorly towards the cornea. A sharp point blade was used to create a paracentesis site at the 2 o'clock position. A 2.4 mm keratome was used to enter the anterior chamber through the groove. Viscoelastic was injected into the anterior chamber. An anterior capsulotomy was performed using Utrata forceps in a capsulorrhexis fashion. Hydrodissection and hydrodelineation were performed. Phacoemulsification was performed in zcwwjl-oeb-kxxihcb technique. Total phaco time was 48 seconds. Following this, the I/A unit was used to remove residual cortex. Viscoelastic was injected into the capsular bag. Intraocular lens model SN60WF, 22.0 diopters, serial number [id number], was placed in the capsular bag. The I/A unit was used to remove residual viscoelastic. The wound was seen to be watertight under high and low pressure, and no sutures were placed. The intraocular lens was well centered. The pressure was adjusted in the eye to normal pressure. The 4-0 black silk sutures and lid speculum were removed. The eye was shielded after Besivance drops were placed. The patient tolerated the procedure well and was sent to the recovery room in good condition. A drop of Cosopt was placed in the eye at the end of the surgery. DICTATING PHYSICIAN: ESAU ALEX M.D. [id number] PHY#: [id number] ID: [id number] JOB#: [id number] ACCT: [id number] cc:ESAU ALEX M.D. >
== END 2019-03-13 11:56 | disposition home or self-care (01) ==
LOC: SC 08:33
PROVIDERS: ATTEND Ophthalmology
DX: H25.811 Combined forms of age-related cataract, right eye (principal); Z96.1 Presence of intraocular lens; I10 Essential (primary) hypertension; Z79.899 Other long term (current) drug therapy; Z79.82 Long term (current) use of aspirin; I49.9 Cardiac arrhythmia, unspecified
CPT/HCPCS: 66984; V2632; J2250; J3490 ×4; A9270; J0171; J3010; 142

== ENCOUNTER → 2019-06-01 | Outpatient (CLI) | payer MEDICARE ==
--- NOTE | 2019-06-01 13:14 | RADIOLOGY REPORT (SQ) ---
EXAM DESCRIPTION: HIPS BILATERAL COMPLETED DATE/TIME: 06/01/2019 1:01 pm REASON FOR STUDY: L>R HIP PAIN COMPARISON: None. NUMBER OF VIEWS: Two views TECHNIQUE: AP pelvis and additional frog-leg view of both hips. LIMITATIONS: None. FINDINGS: MINERALIZATION: Normal. HIPS: No acute fracture or dislocation. No worrisome bone lesions. PELVIS AND SACRUM: No acute fracture or dislocation. No worrisome bone lesions. PUBIS AND ISCHIUM: No acute fracture. LOWER LUMBAR SPINE: No significant findings as visualized. SOFT TISSUES: No findings. OTHER: No other significant finding. IMPRESSION: NEGATIVE STUDY OF THE PELVIS AND HIPS. TECHNICAL DOCUMENTATION: JOB ID: [id number] [employer]- All Rights Reserved Reading location - IP/workstation name: [email or web address]
== END ==
LOC: OD 12:44
PROVIDERS: ATTEND Anesthesiology Pain Medicine
DX: M25.552 Pain in left hip (principal); M25.551 Pain in right hip
CPT/HCPCS: 73522

== ENCOUNTER 2019-06-26 10:20 | Day surgery (SDC) | payer MEDICARE ==
[~2019-06-26 10:20] MED LIST changes: -BUPIVACAINE HCL 0.75% INJ/PF (7.5 MG/1 ML) 10 ML SDV OD PRN; -CHONDR SU A NA/HYALUR INTRAOC KIT (SURGICARE) ONE; -EPINEPHRINE INJ/PF 1 MG/1 ML AMPULE ONE; -KETOROLAC TROMETHAMINE 0.45% 4 DROP/0.4 ML DROPERETTE OD PRN; +LACTATED RINGERS 1000 ML IV PRN; +LIDOCAINE 0.5% INJ-PF (5 MG/ML) 50 ML SDV SUBCUT PRN; -LIDOCAINE 1% INJ-PF (10 MG/ML) 30 ML SDV ONE; -LIDOCAINE 4% INJ/PF (40 MG/ML) 5 ML AMPUL OD PRN
[2019-06-26] MEDS ORDERED: MEPERIDINE HCL/PF INJ 25 MG/1 ML DISP.SYRIN IV PRN (13:25)
[2019-06-26] MEDS ORDERED: PROMETHAZINE HCL INJ 25 MG/1 ML VIAL IV PRN ×2 (13:25)
[2019-06-26] MEDS ORDERED: FENTANYL CITRATE INJ/PF 100 MCG/2 ML AMPUL IV PRN ×3 (13:25)
[2019-06-26] MEDS ORDERED: DIPHENHYDRAMINE HCL 50 MG/ML VIAL IV PRN (13:25)
--- NOTE | 2019-06-26 13:50 | Discharge Summary ---
Discharge Summary (SDC) - Discharge Final Diagnosis: History of a large tubulovillous adenoma of the rectum Date of Surgery: 06/26/19 Discharge Date: 06/26/19 Condition: Stable Treatment or Instructions: Discharge home. Diet as tolerated. Activity: Nonstrenuous. Follow-up with me in 1 to 2 weeks at [facility]. Referrals: VENKATA DEMPSEY PA [Primary Care Provider] - Discharge Diet: As Tolerated Respiratory Treatments at Home: Deep Breathing/Coughing, Incentive Spirometer Discharge Activity: Balance Activity w/Rest Home Care Assistance: None Needed Report the Following to Your Physician Immediately: Shortness of Breath, Nausea, Vomiting, Increase in Pain, Fever over 101 Degrees, Unusual Bleeding, Redness
--- NOTE | 2019-06-26 13:55 | Operative Report ---
Nonrecallable Operative Report DATE OF SURGERY: 06/26/19 PREOPERATIVE DIAGNOSIS: History of a large tubulovillous adenoma of the rectum. POSTOPERATIVE DIAGNOSIS: Same as above. OPERATION: Flexible sigmoidoscopy with snare polypectomy of proximal and distal margins of the scar. SURGEON: HENRY AKHTAR ANESTHESIA: LMAC TISSUE REMOVED OR ALTERED: Proximal and distal margins of the scar in the rec kirsten, from previous endoscopic mucosal resection of a large tubulovillous adenoma. COMPLICATIONS: None apparent ESTIMATED BLOOD LOSS: Minimal PROCEDURE: Procedure in detail: After informed consent was obtained from the patient, she was laid in the left lateral decubitus position in the operating room. The flexible sigmoidoscope was inserted into the rectum. Immediately a large scar was found. The scar was from her previous endoscopic mucosal resection of her tubulovillous adenoma of the rectum. The mucosa at the proximal and distal edges of the scar appeared normal. A hexagonal snare was used to sample/biopsy the mucosa proximal and distal to the scar. Once this was completed, air was suctioned from the rectum, and the procedure was concluded. All sponge, instrument, and needle counts were correct x2. Condition: Stable.
[2019-06-26] MEDS ORDERED: LIDOCAINE 2% INJ-PF (100 MG/5 ML) SYRINGE ONE (14:01)
[2019-06-26] MEDS ORDERED: PROPOFOL INJ 200 MG/20 ML VIAL IV ONE (14:08)
[2019-06-26 15:27] VITALS: BP 124/64
== END 2019-06-26 15:05 | disposition home or self-care (01) ==
LOC: OROUT 10:20
PROVIDERS: ATTEND Surgery
DX: Z12.11 Encounter for screening for malignant neoplasm of colon (principal); Z86.010 Personal history of colon polyps; Z85.038 Personal history of other malignant neoplasm of large intestine; D12.8 Benign neoplasm of rectum; Z90.49 Acquired absence of other specified parts of digestive tract; J44.9 Chronic obstructive pulmonary disease, unspecified; I10 Essential (primary) hypertension; E66.9 Obesity, unspecified; Z79.82 Long term (current) use of aspirin; Z79.899 Other long term (current) drug therapy; Z86.711 Personal history of pulmonary embolism; Z87.891 Personal history of nicotine dependence; Z09 Encounter for follow-up examination after completed treatment for conditions other than malignant neoplasm; Z08 Encounter for follow-up examination after completed treatment for malignant neoplasm
CPT/HCPCS: 45331; 36415; 84132; 88305 ×2; 00811; J2001; J2704; 811

== ENCOUNTER → 2019-08-23 | Outpatient (CLI) | payer MEDICARE ==
[2019-08-23 10:29] LABS: ALBUMIN 3.6 g/dL (3.5-5.0); ALKALINE PHOSPHATASE 73 U/L (38-126); ANION GAP 5 (5-19); ASPARTATE AMINO TRANSFERASE 20 U/L (14-36); BILIRUBIN,DIRECT 0.2 mg/dL (0.0-0.4); BILIRUBIN,TOTAL 0.8 mg/dL (0.2-1.3); BLOOD UREA NITROGEN 27 mg/dL (7-20); CALCIUM 9.1 mg/dL (8.4-10.2); CARBON DIOXIDE 31 mmol/L (22-30); CHLORIDE 102 mmol/L (98-107); CHOLESTEROL 133.39 mg/dL (0-200); GLUCOSE 92 mg/dL (75-110); POTASSIUM 4.5 mmol/L (3.6-5.0); TOTAL PROTEIN 6.3 g/dL (6.3-8.2); TRIGLYCERIDES 78 mg/dL (<150)
[2019-08-23 10:39] LABS: DIRECT LDL 65 mg/dL (<100)
== END ==
LOC: OD 09:17
PROVIDERS: ATTEND Internal Medicine Cardiovascular Disease
DX: E78.00 Pure hypercholesterolemia, unspecified (principal); I10 Essential (primary) hypertension; Z79.899 Other long term (current) drug therapy
CPT/HCPCS: 36415; 80048; 80061; 80076

== ENCOUNTER → 2019-11-20 | Outpatient (CLI) | payer MEDICARE | LOC: WI 08:35 | PROVIDERS: ATTEND Family Medicine | DX: Z12.31 Encounter for screening mammogram for malignant neoplasm of breast (principal) | CPT/HCPCS: 77063; 77067 ==

== ENCOUNTER → 2019-11-27 | Outpatient (CLI) | payer MEDICARE ==
[2019-11-27 09:35] LABS: ALBUMIN 3.7 g/dL (3.5-5.0); ALKALINE PHOSPHATASE 72 U/L (38-126); ANION GAP 7 (5-19); ASPARTATE AMINO TRANSFERASE 21 U/L (14-36); BILIRUBIN,DIRECT 0.3 mg/dL (0.0-0.4); BILIRUBIN,TOTAL 0.8 mg/dL (0.2-1.3); BLOOD UREA NITROGEN 23 mg/dL (7-20); CALCIUM 9.3 mg/dL (8.4-10.2); CARBON DIOXIDE 32 mmol/L (22-30); CHLORIDE 101 mmol/L (98-107); CHOLESTEROL 118.84 mg/dL (0-200); GLUCOSE 81 mg/dL (75-110); POTASSIUM 4.2 mmol/L (3.6-5.0); TOTAL PROTEIN 6.5 g/dL (6.3-8.2); TRIGLYCERIDES 99 mg/dL (<150)
[2019-11-27 09:46] LABS: DIRECT LDL 57 mg/dL (<100)
== END ==
LOC: OD 07:32
PROVIDERS: ATTEND Internal Medicine Cardiovascular Disease
DX: E78.00 Pure hypercholesterolemia, unspecified (principal); Z79.899 Other long term (current) drug therapy; I10 Essential (primary) hypertension
CPT/HCPCS: 36415; 80048; 80061; 80076

== ENCOUNTER → 2020-02-19 | Outpatient (CLI) | payer MEDICARE ==
[2020-02-19 11:07] LABS: BLOOD UREA NITROGEN 22 mg/dL (7-20); CALCIUM 9.1 mg/dL (8.4-10.2); CARBON DIOXIDE 31 mmol/L (22-30); CHLORIDE 103 mmol/L (98-107); GLUCOSE 97 mg/dL (75-110); POTASSIUM 4.1 mmol/L (3.6-5.0)
[2020-02-19 11:11] LABS: ANION GAP 4 (5-19)
== END ==
LOC: OD 10:05
PROVIDERS: ATTEND Internal Medicine Cardiovascular Disease
DX: I10 Essential (primary) hypertension (principal); Z79.899 Other long term (current) drug therapy
CPT/HCPCS: 36415; 80048

== ENCOUNTER → 2020-03-17 | Outpatient (CLI) | payer MEDICARE ==
--- NOTE | 2020-03-17 11:15 | RADIOLOGY REPORT (SQ) ---
EXAM DESCRIPTION: C SP 4 OR 5 VIEWS IMAGES COMPLETED DATE/TIME: 03/17/2020 8:47 am REASON FOR STUDY: CERVICALGIA M54.2 CERVICALGIA COMPARISON: None. NUMBER OF VIEWS: Five views. TECHNIQUE: AP, lateral, obliques and odontoid radiographic images acquired of the cervical spine. LIMITATIONS: None. FINDINGS: MINERALIZATION: Osteopenia. ALIGNMENT: There is straightening of the normal lordotic curvature of the cervical spine. There is n o evidence of atlantoaxial dissociation on the odontoid views. VERTEBRAE: The cervical vertebral body heights are preserved. DISCS: The C5-C6 and C6-C7 intervertebral disc spaces are narrowed. There are endplates osteophytes from C4-C5 to C7-T1. FORAMINA: Degenerative arthropathy of the facet joints and uncovertebral hypertrophy throughout the c ervical spine with moderate foraminal stenosis on the left at C5-C6. LATERAL AND POSTERIOR ELEMENTS: As above. HARDWARE: None in the spine. SOFT TISSUES: No radiographic abnormality. OTHER: No other finding. IMPRESSION: Degenerative spondylosis and degenerative facet joint arthropathy with moderate osteophy tic foraminal stenosis on the left at C5-C6. TECHNICAL DOCUMENTATION: JOB ID: [id number] [employer]- All Rights Reserved Reading location - IP/workstation name: [email or web address]
== END ==
LOC: OD 08:23
PROVIDERS: ATTEND Physician Assistant
DX: M47.892 Other spondylosis, cervical region (principal); M48.02 Spinal stenosis, cervical region; M54.2 Cervicalgia
CPT/HCPCS: 72050

== ENCOUNTER → 2020-06-03 | Outpatient (CLI) | payer MEDICARE ==
[2020-06-03 08:52] LABS: ALBUMIN 3.8 g/dL (3.5-5.0); ALKALINE PHOSPHATASE 66 U/L (38-126); ANION GAP 5 (5-19); ASPARTATE AMINO TRANSFERASE 19 U/L (14-36); BILIRUBIN,TOTAL 0.5 mg/dL (0.2-1.3); BLOOD UREA NITROGEN 30 mg/dL (7-20); CALCIUM 9.3 mg/dL (8.4-10.2); CARBON DIOXIDE 30 mmol/L (22-30); CHLORIDE 103 mmol/L (98-107); GLUCOSE 97 mg/dL (75-110); POTASSIUM 4.1 mmol/L (3.6-5.0); TOTAL PROTEIN 6.4 g/dL (6.3-8.2); TRIGLYCERIDES 67 mg/dL (<150)
[2020-06-03 09:03] LABS: DIRECT LDL 60 mg/dL (<100)
== END ==
LOC: OD 07:47
PROVIDERS: ATTEND Internal Medicine Cardiovascular Disease
DX: E78.00 Pure hypercholesterolemia, unspecified (principal); I10 Essential (primary) hypertension; Z79.899 Other long term (current) drug therapy
CPT/HCPCS: 36415; 80048; 80061; 80076

== ENCOUNTER 2020-07-04 18:58 | Emergency (ER) | payer MEDICARE ==
--- NOTE | 2020-07-04 19:35 | ER Document Report ---
ED Medical Screen (RME) - General Chief Complaint: Chest Pain > 30 Stated Complaint: CHEST PAIN Time Seen by Provider: 07/04/20 19:33 Primary Care Provider: JAZZY COLEMAN MD [Primary Care Provider] - Follow up as needed Mode of Arrival: Wheelchair Information source: Patient Notes: Patient presents complaining of chest pain with shortness of breath off and on for the past 2 weeks. Patient states pain symptoms are worse with exertion. Patient states that whenever she is having her chest pain symptoms she does feel lightheaded. Patient does report occasional nausea. Patient denies any vomiting. Patient denies any cough or cold symptoms. Patient reports a history of hypertension, previous PE as well as colon cancer. I have greeted and performed a rapid initial assessment of this patient. A comprehensive ED assessment and evaluation of the patient, analysis of test results and completion of the medical decision making process will be conducted by additional ED providers. TRAVEL OUTSIDE OF THE [place] IN LAST 30 DAYS: No - Related Data Allergies/Adverse Reactions: No Known Allergies Allergy (Verified 03/09/19 11:45) Past Medical History - Social History Chew tobacco use (# tins/day): No Frequency of alcohol use: None Drug Abuse: None - Past Medical History Cardiac Medical History: Reports: Hx Hypercholesterolemia, Hx Hypertension Denies: Hx Coronary Artery Disease, Hx Heart Attack Pulmonary Medical History: Reports: Hx Pneumonia - 2007 Denies: Hx Asthma, Hx Bronchitis, Hx COPD Neurological Medical History: Denies: Hx Cerebrovascular Accident, Hx Seizures Renal/ Medical History: Denies: Hx Peritoneal Dialysis Malignancy Medical History: Reports: Hx Colorectal Cancer GI Medical History: Denies: Hx Hepatitis, Hx Hiatal Hernia, Hx Ulcer Musculoskeltal Medical History: 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 Denies: Hx Mastectomy, Hx Open Heart Surgery, Hx Pacemaker - Immunizations Hx Diphtheria, Pertussis, Tetanus Vaccination: Yes Physical Exam - Vital signs Vitals: Temp Pulse Resp BP Pulse Ox 98.3 F 62 20 149/84 H 97 07/04/20 19:16 07/04/20 19:16 07/04/20 19:16 07/04/20 19:16 07/04/20 19:16 - Respiratory Respiratory status: No respiratory distress Chest status: Nontender Breath sounds: Normal - Cardiovascular Rhythm: Regular Heart sounds: S1 appreciated, S2 appreciated Course - Vital Signs Vital signs: Temp Pulse Resp BP Pulse Ox 98.3 F 62 20 149/84 H 97 07/04/20 19:31 07/04/20 19:16 07/04/20 19:16 07/04/20 19:16 07/04/20 19:16 Doctor's Discharge - Discharge Referrals: JAZZY COLEMAN MD [Primary Care Provider] - Follow up as needed
[2020-07-04 20:08] LABS: ABSOLUTE BASOPHILS # (AUTO) 0.1 10^3/uL (0.0-0.2); ABSOLUTE EOSINOPHILS # (AUTO) 0.1 10^3/uL (0.0-0.6); ABSOLUTE LYMPHOCYTES (AUTO) 0.9 10^3/uL (0.5-4.7); ABSOLUTE MONOCYTES (AUTO) 0.5 10^3/uL (0.1-1.4); ABSOLUTE NEUT (AUTO) 4.2 10^3/uL (1.7-8.2); BASOPHILS % (AUTO) 0.9 % (0-2); EOSINOPHILS % (AUTO) 1.6 % (0-6); HEMATOCRIT 37.1 % (36.0-47.0); HEMOGLOBIN 12.6 g/dL (12.0-15.5); LYMPHOCYTES % (AUTO) 15.5 % (13-45); MEAN CORPUSCULAR HEMOGLOBIN 30.2 pg (27.0-33.4); MEAN CORPUSCULAR HGB CONC 34.1 g/dL (32.0-36.0); MEAN CORPUSCULAR VOLUME 89 fl (80-97); MONOCYTES % (AUTO) 8.4 % (3-13); PLATELET COUNT 201 10^3/uL (150-450); RED BLOOD COUNT 4.19 10^6/uL (3.72-5.28); RED CELL DISTRIBUTION WIDTH 14.4 % (11.5-14.0); SEGMENTED NEUTROPHILS % (AUTO) 73.6 % (42-78); TOTAL CELLS COUNTED % (AUTO) 100 %; WHITE BLOOD COUNT 5.7 10^3/uL (4.0-10.5)
[2020-07-04 20:24] LABS: ALBUMIN 3.8 g/dL (3.5-5.0); ALKALINE PHOSPHATASE 66 U/L (38-126); ANION GAP 11 (5-19); ASPARTATE AMINO TRANSFERASE 24 U/L (14-36); BILIRUBIN,DIRECT 0.3 mg/dL (0.0-0.4); BILIRUBIN,TOTAL 0.6 mg/dL (0.2-1.3); BLOOD UREA NITROGEN 31 mg/dL (7-20); CALCIUM 8.8 mg/dL (8.4-10.2); CARBON DIOXIDE 23 mmol/L (22-30); CHLORIDE 107 mmol/L (98-107); GLUCOSE 113 mg/dL (75-110); TOTAL PROTEIN 6.2 g/dL (6.3-8.2)
--- NOTE | 2020-07-04 20:27 | RADIOLOGY REPORT (SQ) ---
EXAM DESCRIPTION: XR CHEST 1 VIEW COMPLETED DATE/TME: 07/04/2020 19:34 CLINICAL HISTORY: 74 years, Female, cp COMPARISON: Prior study from 11/16/2018 NUMBER OF VIEWS: One TECHNIQUE: Single frontal view of the chest was obtained portably LIMITATIONS: None. FINDINGS: Cardiac and mediastinal contours are stable. Lungs are clear. No pleural effusion or pneumothorax. IMPRESSION: No acute disease. copyright 2010 [employer]- All Rights Reserved
[2020-07-04 20:35] LABS: NT PRO BNP 360 pg/mL (<450)
[2020-07-04 20:44] LABS: POTASSIUM 3.9 mmol/L (3.6-5.0); TROPONIN I < 0.012 ng/mL
[2020-07-04] MEDS ORDERED: NORMAL SALINE 1000 ML 1,000 ML IV ONE (20:49)
--- NOTE | 2020-07-04 23:36 | EKG REPORT ---
SEVERITY:- OTHERWISE NORMAL ECG - SINUS RHYTHM LEFT AXIS DEVIATION : Confirmed by: Ludy Curtis MD 04-Jul-2020 23:35:26
[2020-07-05 01:17] VITALS: BP 158/82
--- NOTE | 2020-07-08 14:29 | ER Document Report ---
Entered by MICHAEL SEGURA SCRIBE 07/05/20 0042 Acting as scribe for:CHASIDY TURCIOS IV, MD ED General - General Chief Complaint: Chest Pain > 30 Stated Complaint: CHEST PAIN Time Seen by Provider: 07/04/20 19:33 Primary Care Provider: HENRY KAPADIA MD [ACTIVE STAFF] - 07/07/20 (follow up as scheduled) JAZZY COLEMAN MD [Primary Care Provider] - 07/07/20 (follow up as scheduled ) Mode of Arrival: Wheelchair Information source: Patient Notes: This 74 year old female patient presents to the ED today with complaints of diarrhea, worse than usual, for the past week. Patient states she has been having diarrhea since she had a colon resection done by Dr. Kapadia; however, this week has been worse and today she noticed a flushing sensation along with the diarrhea. Brother at bedside also notes decreased PO intake due to the diarrhea. Patient denies nausea. Patient has an appointment scheduled with Dr. Kapadia next month. TRAVEL OUTSIDE OF THE [place] IN LAST 30 DAYS: No - Related Data Allergies/Adverse Reactions: No Known Allergies Allergy (Verified 03/09/19 11:45) Past Medical History - General Information source: Patient - Social History Smoking Status: Never Smoker Cigarette use (# per day): No Chew tobacco use (# tins/day): No Smoking Education Provided: No Frequency of alcohol use: None Drug Abuse: None Lives with: Family Family History: Reviewed & Not Pertinent, Hypertension Patient has suicidal ideation: No Patient has homicidal ideation: No - Past Medical History Cardiac Medical History: Reports: Hx Hypercholesterolemia, Hx Hypertension, Hx Pulmonary Embolism Pulmonary Medical History: Reports: Hx Pneumonia - 2008 Malignancy Medical History: Reports: Hx Colorectal Cancer Musculoskeletal Medical History: 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 Past Surgical History: Reports: Hx Bowel Surgery - bowel ressection, Hx Herniorrhaphy, Hx Hysterectomy, Hx Orthopedic Surgery - right knee replacement, Hx Tonsillectomy - Immunizations Hx Diphtheria, Pertussis, Tetanus Vaccination: Yes Hx Pneumococcal Vaccination: 11/07/15 Review of Systems - Review of Systems Constitutional: See HPI EENT: No symptoms reported Cardiovascular: No symptoms reported Respiratory: No symptoms reported Gastrointestinal: See HPI Genitourinary: No symptoms reported Female Genitourinary: No symptoms reported Musculoskeletal: No symptoms reported Skin: No symptoms reported Hematologic/Lymphatic: No symptoms reported Neurological/Psychological: No symptoms reported -: Yes All other systems reviewed and negative Physical Exam - Vital signs Vitals: Temp Pulse Resp BP Pulse Ox 98.3 F 62 20 149/84 H 97 07/04/20 19:16 07/04/20 19:16 07/04/20 19:16 07/04/20 19:16 07/04/20 19:16 - General General appearance: Appears well, Alert In distress: None - HEENT Head: Normocephalic, Atraumatic Eyes: Normal Pupils: PERRL - Respiratory Respiratory status: No respiratory distress Chest status: Nontender Breath sounds: Normal Chest palpation: Normal - Cardiovascular Rhythm: Regular Heart sounds: Normal auscultation Murmur: No Friction rub: No Gallop: None auscultated - Abdominal Inspection: Normal Distension: No distension Bowel sounds: Normal Tenderness: Nontender - Abdomen soft Organomegaly: No organomegaly - Back Back: Normal, Nontender - Extremities General upper extremity: Normal inspection General lower extremity: Normal inspection - Neurological Neuro grossly intact: Yes Orientation: AAOx4 Jannette Coma Scale Eye Opening: Spontaneous Jannette Coma Scale Verbal: Oriented Leonard Coma Scale Motor: Obeys Commands Jannette Coma Scale Total: 15 - Psychological Associated symptoms: Normal affect, Normal mood - Skin Skin Temperature: Warm Skin Moisture: Dry Skin Color: Normal Course - Re-evaluation Re-evalutation: 07/05/20 00:43 Results of ED MSE discussed with patient and patient's brother who is in the room. Patient states the reason she came into the emergency department was not related to episodic chest pain and shortness of breath which she has had for a long time and is being closely followed for by . Patient states she presented to the emergency department because she has been having diarrhea since a colon resection done by Dr. Kapadia and her symptoms have been worse this week and today she noticed a flushing sensation along with the diarrhea. The patient became concerned by the flushing sensation stating that she did not "feel right." Patient states that she feels perfectly normal now and wants to be discharged home. All questions were answered prior to discharge. Emergency signs and symptoms, reasons to return to the emergency department discussed with patient and patient's brother. - Vital Signs Vital signs: Temp Pulse Resp BP Pulse Ox 97.8 F 68 16 153/83 H 96 07/04/20 22:21 07/04/20 22:21 07/04/20 23:30 07/04/20 23:30 07/04/20 23:39 - Laboratory Result Diagrams: 07/04/20 19:38 07/04/20 19:38 Laboratory results interpreted by me: 07/04/20 07/04/20 19:38 19:38 RDW 14.4 H BUN 31 H Creatinine 1.26 H Est GFR ( Amer) 50 L Est GFR (MDRD) Non-Af 41 L Glucose 113 H Total Protein 6.2 L - Diagnostic Test Radiology reviewed: Reports reviewed - EKG Interpretation by Me Additional EKG results interpreted by me: 07/05/20 00:45 EKG obtained on 07/04/2020 at 1909 hrs. was interpreted by this MD. Findings normal sinus rhythm, rate 61, left axis deviation is present, P waves preceding QRS complexes, QRS complexes appear narrow, there are no obvious patterns of ST segment elevation or depression present to suggest acute myocardial ischemia or infarction. Impression: Normal sinus rhythm with left axis deviation and nonspecific ST segments. Discharge - Discharge Clinical Impression: Flushing, Chronic diarrhea, H/O colectomy Condition: Stable Disposition: HOME, SELF-CARE Additional Instructions: Return to the Emergency Department without delay if any worse. You can use [employer] and [employer] coconut macaroni cookies to help with your diarrhea. You may also want to introduce psyllium fiber capsules into your diet by taking 6 capsules of daily to help add bulk your stools. HOME CARE INSTRUCTIONS & INFORMATION: Thank you for choosing us for your medical needs. We hope you're satisfied with the care you received. After you leave, you must properly care for your problem and, at the same time, observe its progress. Any condition can change. Some illnesses can change rapidly over hours or days. If your condition worsens, return to the Emergency Department or see your physician promptly. ABOUT YOUR X-RAYS AND EKG'S: If you had an EKG or X-rays taken, they have been read by the Emergency Physician. The X-rays and EKG's will also be read by a Radiologist or Accounts Payable Manager within 24 hours. If discrepancies are noted, you will be notified by telephone. Please be certain the ED has a correct telephone number & address where you can be reached. Also, realize that some fractures or abnormalities do not show up on initial X-rays. If your symptoms continue, see your physician. ABOUT YOUR LABORATORY TEST: If you had laboratory tests, the results have been reviewed by the Emergency Physician. Some test results (for example cultures) may not be available for several days. You will be contacted if any test result shows you need additional treatment. Please be certain the ED has a correct telephone number and address where you can be reached. ABOUT YOUR MEDICATIONS: You will receive instructions on how to take your medicine on the prescription label you receive. Additional information may be provided by the Pharmacy. If you have questions afterwards, call the ED for clarification or further instructions. Some prescribed medications may cause drowsiness. Do not perform tasks such as driving a car or operating machinery without consulting your Pharmacist. If you feel you need a refill of pain medication, your condition will need re-evaluation. Please do not call for a refill of any medication. ABOUT YOUR SIGNATURE: Signature of this document acknowledges to followin. Understanding that you received emergency treatment and that you may be released before al medical problems are known or treated. Please be certain the ED has a correct phone number & address where you can be reached. 2. Acknowledgement that you will arrange for follow-up care as recommended. 3. Authorization for the Emergency Physician to provide information to your follow-up Physician in order to maximize your care. AT ANY TIME, IF YOUR SYMPTOMS CHANGE SIGNIFICANTLY OR WORSEN OR YOU DEVELOP NEW SYMPTOMS, RETURN TO THE EMERGENCY DEPARTMENT IMMEDIATELY FOR RE-EVALUATION. OUR GOAL IS TO PROVIDE EXCELLENT MEDICAL CARE! WE HOPE THAT WE HAVE MET YOUR EXPECTATIONS DURING YOUR EMERGENCY DEPARTMENT VISIT AND THAT YOU FEEL YOU HAVE RECEIVED EXCELLENT CARE! Referrals: JAZZY COLEMAN MD [Primary Care Provider] - 07/07/20 (follow up as scheduled ) HENRY KAPADIA MD [ACTIVE STAFF] - 07/07/20 (follow up as scheduled) I personally performed the services described in the documentation, reviewed and edited the documentation which was dictated to the scribe in my presence, and it accurately records my words and actions.
== END 2020-07-05 00:59 | disposition home or self-care (01) ==
LOC: ER 18:58
DX: K52.9 Noninfective gastroenteritis and colitis, unspecified (principal); R23.2 Flushing; R07.9 Chest pain, unspecified; R06.02 Shortness of breath; I10 Essential (primary) hypertension; Z86.711 Personal history of pulmonary embolism; Z85.048 Personal history of other malignant neoplasm of rectum, rectosigmoid junction, and anus; Z90.49 Acquired absence of other specified parts of digestive tract
CPT/HCPCS: 36415; 71045; 80053; 83735; 83880; 84484; 85025; 93005; 93010; 99285

== ENCOUNTER 2020-08-06 08:52 | Day surgery (SDC) | payer MEDICARE ==
[~2020-08-06 08:52] MED LIST changes: -LACTATED RINGERS 1000 ML IV PRN; -LIDOCAINE 0.5% INJ-PF (5 MG/ML) 50 ML SDV SUBCUT PRN; +PROPOFOL INJ 200 MG/20 ML VIAL IV ONE
--- NOTE | 2020-08-06 10:39 | Discharge Summary ---
Discharge Summary (SDC) - Discharge Final Diagnosis: h/o colon cancer. colon polyps Date of Surgery: 08/06/20 Discharge Date: 08/06/20 Condition: Stable Forms: EU Anesthesia D/C Instructions, Discharge POC-Surgical Service Treatment or Instructions: Discharge home. Diet as tolerated. Activity: Nonstrenuous. Follow-up with [facility] in 7 to 10 days. Okay to shower. Referrals: HENRY AKHTAR MD [ACTIVE STAFF] - Discharge Diet: As Tolerated Respiratory Treatments at Home: Deep Breathing/Coughing Discharge Activity: Balance Activity w/Rest Home Care Assistance: None Needed Report the Following to Your Physician Immediately: Shortness of Breath, Nausea, Vomiting, Increase in Pain, Fever over 101 Degrees, Unusual Bleeding, IV Site Infection Signs
--- NOTE | 2020-08-06 10:42 | Operative Report ---
Nonrecallable Operative Report DATE OF SURGERY: 08/06/20 PREOPERATIVE DIAGNOSIS: History of colon cancer. Multiple colon polyps removed previously, including a large tubulovillous adenoma of the rectum removed piecemeal approximately 1 year ago. POSTOPERATIVE DIAGNOSIS: 1. Same as above. 2. Multiple colon polyps removed today. OPERATION: 1. Colonoscopy to the cecum. 2. Snare polypectomy of colon polyp x3. SURGEON: HENRY AKHTAR ANESTHESIA: LMAC TISSUE REMOVED OR ALTERED: 1. Colon polyp at 40 cm x 2. 2. Colon polyp at 30 cm COMPLICATIONS: None apparent ESTIMATED BLOOD LOSS: Minimal PROCEDURE: Procedure detail: After informed consent was obtained, the patient was brought into the operating room and laid in the left lateral decubitus position. The endoscope was inserted into the rectum. Was passed up the rectum, through the anastomosis, across the remaining transverse colon, down the ascending colon, and into the cecum. The ileocecal valve and appendiceal orifice were identified. The scope was then withdrawn, circumferentially noted the mucosa. The prep was fair, requiring multiple washings and suctionings. This was successful, and the entirety of the mucosa was surveyed. The scope was withdrawn past the ascending colon, and into the transverse colon. At 40 cm 2 small polyps were identified and removed via hot biopsy forcep. The scope was then withdrawn, and at approximately 35 cm a tattoo was identified. There was no evidence of mass or lesion at the tattooed area. The scope was then withdrawn to 30 cm, where another small polyp was removed via hot biopsy forcep. The scope was withdrawn further, past the colorectal anastomosis, and into the rectum. The previous resection site of the rectal tubulovillous adenoma was inspected. There is no residual adenomatous tissue. A retroflexion maneuver was performed, noting no significant internal hemorrhoids. The scope was straightened, air was suctioned from the rectum, the scope was removed, and the procedure was concluded.
[2020-08-06 11:27] VITALS: BP 122/69
== END 2020-08-06 11:27 | disposition home or self-care (01) ==
LOC: END 08:52
PROVIDERS: ATTEND Surgery
DX: Z12.11 Encounter for screening for malignant neoplasm of colon (principal); D12.6 Benign neoplasm of colon, unspecified; Z86.010 Personal history of colon polyps; Z85.038 Personal history of other malignant neoplasm of large intestine; Z03.818 Encounter for observation for suspected exposure to other biological agents ruled out; I10 Essential (primary) hypertension; E66.9 Obesity, unspecified; Z79.899 Other long term (current) drug therapy; Z79.82 Long term (current) use of aspirin
CPT/HCPCS: 45384; 88305 ×2; 00812; U0003; J2704; C9803; 812; 87635

== ENCOUNTER 2020-08-14 12:27 | Observation (INO) | payer MEDICARE ==
[2020-08-14 13:06] LABS: ABSOLUTE EOSINOPHILS # (AUTO) 0.1 10^3/uL (0.0-0.6); ABSOLUTE LYMPHOCYTES (AUTO) 0.7 10^3/uL (0.5-4.7); ABSOLUTE MONOCYTES (AUTO) 0.5 10^3/uL (0.1-1.4); BASOPHILS % (AUTO) 0.6 % (0-2); EOSINOPHILS % (AUTO) 1.2 % (0-6); HEMATOCRIT 37.7 % (36.0-47.0); HEMOGLOBIN 13.1 g/dL (12.0-15.5); LYMPHOCYTES % (AUTO) 13.1 % (13-45); MEAN CORPUSCULAR HEMOGLOBIN 30.6 pg (27.0-33.4); MEAN CORPUSCULAR HGB CONC 34.7 g/dL (32.0-36.0); MEAN CORPUSCULAR VOLUME 88 fl (80-97); MONOCYTES % (AUTO) 8.7 % (3-13); PLATELET COUNT 191 10^3/uL (150-450); RED BLOOD COUNT 4.28 10^6/uL (3.72-5.28); RED CELL DISTRIBUTION WIDTH 13.9 % (11.5-14.0); SEGMENTED NEUTROPHILS % (AUTO) 76.4 % (42-78); TOTAL CELLS COUNTED % (AUTO) 100 %; WHITE BLOOD COUNT 5.3 10^3/uL (4.0-10.5)
--- NOTE | 2020-08-14 13:11 | ER Document Report ---
ED Medical Screen (RME) - General Chief Complaint: Chest Pain > 30 Stated Complaint: CHEST PAIN Time Seen by Provider: 08/14/20 13:05 Primary Care Provider: JAZZY COLEMAN MD [Primary Care Provider] - Follow up as needed Information source: Patient Notes: Patient presents complaining of a burning chest pain that started around 10 AM today. Patient took a nitroglycerin tablet and her pain was resolved. Patient denies any pain at this time. Patient states she has had some exertional shortness of breath recently. Patient denies any cough or cold symptoms. Patient denies any nausea or vomiting. Patient does report a history of colon cancer, COPD and hypertension. I have greeted and performed a rapid initial assessment of this patient. A comprehensive ED assessment and evaluation of the patient, analysis of test results and completion of the medical decision making process will be conducted by additional ED providers. TRAVEL OUTSIDE OF THE [place] IN LAST 30 DAYS: No - Related Data Allergies/Adverse Reactions: No Known Allergies Allergy (Verified 03/09/19 11:45) Past Medical History - Social History Frequency of alcohol use: None Drug Abuse: None - Past Medical History Cardiac Medical History: Reports: Hx Hypercholesterolemia, Hx Hypertension, Hx Pulmonary Embolism Denies: Hx Coronary Artery Disease, Hx Heart Attack Pulmonary Medical History: Reports: Hx Pneumonia - 2007 Denies: Hx Asthma, Hx Bronchitis, Hx COPD Neurological Medical History: Denies: Hx Cerebrovascular Accident, Hx Seizures Renal/ Medical History: Denies: Hx Peritoneal Dialysis Malignancy Medical History: Reports: Hx Colorectal Cancer GI Medical History: Denies: Hx Hepatitis, Hx Hiatal Hernia, Hx Ulcer Musculoskeltal Medical History: 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 Denies: Hx Mastectomy, Hx Open Heart Surgery, Hx Pacemaker - Immunizations Hx Diphtheria, Pertussis, Tetanus Vaccination: Yes Physical Exam - Vital signs Vitals: Pulse Ox 98 08/14/20 12:45 - Respiratory Respiratory status: No respiratory distress - Cardiovascular Rhythm: Regular Heart sounds: S1 appreciated, S2 appreciated Course - Vital Signs Vital signs: Temp Pulse Resp BP Pulse Ox 98.5 F 98 08/14/20 13:02 10/08/20 12:45 - Laboratory Result Diagrams: 08/14/20 12:50 08/14/20 12:50 Doctor's Discharge - Discharge Referrals: JAZZY COLEMAN MD [Primary Care Provider] - Follow up as needed
[2020-08-14 13:25] LABS: ALKALINE PHOSPHATASE 90 U/L (38-126); ANION GAP 8 (5-19); ASPARTATE AMINO TRANSFERASE 20 U/L (14-36); BILIRUBIN,DIRECT 0.4 mg/dL (0.0-0.4); BILIRUBIN,TOTAL 0.7 mg/dL (0.2-1.3); BLOOD UREA NITROGEN 32 mg/dL (7-20); CARBON DIOXIDE 30 mmol/L (22-30); CHLORIDE 101 mmol/L (98-107); CREATINE KINASE 49 U/L (30-135); GLUCOSE 116 mg/dL (75-110); TOTAL PROTEIN 6.4 g/dL (6.3-8.2)
[2020-08-14 13:37] LABS: CREATINE KINASE MB 0.88 ng/mL (<4.55); TROPONIN I 0.019 ng/mL
--- NOTE | 2020-08-14 13:57 | RADIOLOGY REPORT (SQ) ---
EXAM DESCRIPTION: CHEST SINGLE VIEW IMAGES COMPLETED DATE/TIME: 08/14/2020 1:22 pm REASON FOR STUDY: cp COMPARISON: 07/04/2020 EXAM PARAMETERS: NUMBER OF VIEWS: One view. TECHNIQUE: Single frontal radiographic view of the chest acquired. RADIATION DOSE: NA LIMITATIONS: None. FINDINGS: LUNGS AND PLEURA: No opacities, masses or pneumothorax. No pleural effusion. MEDIASTINUM AND HILAR STRUCTURES: No masses. Contour normal. HEART AND VASCULAR STRUCTURES: Heart normal in size. Normal vasculature. BONES: No acute findings. HARDWARE: None in the chest. OTHER: No other significant finding. IMPRESSION: NO ACUTE RADIOGRAPHIC FINDING IN THE CHEST. TECHNICAL DOCUMENTATION: JOB ID: [id number] 2010 [employer]- All Rights Reserved Reading location - IP/workstation name: [email or web address]
--- NOTE | 2020-08-14 15:24 | ER Document Report ---
ED Cardiac - General Chief Complaint: Chest Pain > 30 Stated Complaint: CHEST PAIN Time Seen by Provider: 08/14/20 13:05 Information source: Patient TRAVEL OUTSIDE OF THE [place] IN LAST 30 DAYS: No - HPI Patient complains to provider of: Chest pain, Shortness of breath Was the onset of pain: Gradual Is the pain a: New problem Quality of pain: Other - Warmth Chest pain radiation location: None Positive cardiac history: No Associated symptoms: None Exacerbated by: Denies Notes: Patient is a 74-year-old female with a past medical history of hypertension and high cholesterol who presents with an episode of chest discomfort and shortness of breath. Patient states she has chronic shortness of breath due to emphysema. She is a former smoker. She states that yesterday she noticed she was slightly more short of breath than normal when doing her chores. Patient states that to day she still had some increased shortness of breath. She states that she took her morning medicine and felt that she had a sensation of "warmth" on her anterior chest. She denies any radiation of pain to her back, no pain in her arms, no pain in her neck. No nausea/vomiting. No abdominal pain. Patient denies any increased leg swelling. She states that she called her PCP who recommended she take 1 nitroglycerin and go to the ED. Patient states her chest discomfort resolved even before she took the nitroglycerin. She was tested for COVID when she had a colonoscopy over 1 week ago and it was negative. She denies any cough. Patient states that she feels at baseline now. Patient state s she would like to be discharged. - Related Data Allergies/Adverse Reactions: No Known Allergies Allergy (Verified 03/09/19 11:45) Past Medical History - General Information source: Patient - Social History Smoking Status: Former Smoker Frequency of alcohol use: None Drug Abuse: None Family History: Reviewed & Not Pertinent, Hypertension - Past Medical History Cardiac Medical History: Reports: Hx Hypercholesterolemia, Hx Hypertension, Hx Pulmonary Embolism Denies: Hx Coronary Artery Disease, Hx Heart Attack Pulmonary Medical History: Reports: Hx Pneumonia - 2007 Denies: Hx Asthma, Hx Bronchitis, Hx COPD Neurological Medical History: Denies: Hx Cerebrovascular Accident, Hx Seizures Renal/ Medical History: Denies: Hx Peritoneal Dialysis Malignancy Medical History: Reports: Hx Colorectal Cancer GI Medical History: Denies: Hx Hepatitis, Hx Hiatal Hernia, Hx Ulcer Musculoskeletal Medical History: 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 Denies: Hx Mastectomy, Hx Open Heart Surgery, Hx Pacemaker - Immunizations Hx Diphtheria, Pertussis, Tetanus Vaccination: Yes Hx Pneumococcal Vaccination: 11/07/15 Review of Systems - Review of Systems Notes: CONSTITUTIONAL: No fever, fatigue or weight loss. SKIN: No rash. HENT: No congestion, ear pain, or sore throat. EYES: No recent vision problems or eye pain. ENDOCRINE: No polyuria or polydipsia. CARDIOVASCULAR: No chest pain or edema. RESPIRATORY: No cough, congestion, or wheezing. Positive for increased shortness of breath. GASTROINTESTINAL: No abdominal pain, nausea, vomiting, bloody stools or diarrhea. GENITOURINARY: No dysuria. MUSCULOSKELETAL: No joint pain or swelling. LYMPHATIC: No swollen glands. NEUROLOGIC: No seizures. No headache, focal weakness or sensory changes. HEMATOLOGIC: No unusual bruising or bleeding. PSYCHIATRIC: No depression or anxiety. Physical Exam - Vital signs Vitals: Resp BP Pulse Ox 16 134/65 H 97 08/14/20 12:39 08/14/20 12:39 08/14/20 12:39 Interpretation: Normal - Notes Notes: VITAL SIGNS: Within normal limits. GENERAL: No acute distress, non-toxic appearance. HEAD: Normal with no signs of head trauma. EYES: EOMI, conjunctiva normal, no discharge. EARS: Hearing grossly intact. NOSE: Normal. NECK: Normal range of motion, no tenderness, supple, no lymphadenopathy, No adenopathy, no JVD. CHEST: Clear breath sounds bilaterally. No wheezes, rales, or rhonchi. CARDIAC: Regular rate and rhythm. S1 and S2, without murmurs, gallops, or rubs. VASCULAR: No Edema. Radial pulses equal and strong bilaterally. ABDOMEN: Normal and soft with no tenderness, no masses or pulsatile masses. GASTROINTESTINAL: Bowel sounds normal GENITOURINARY: Normal, No tenderness LYMPATHTIC: No lymphadenopathy noted. MUSCULOSKELETAL: Good range of motion of all major joints. Extremities without clubbing, cyanosis or edema. NEUROLOGICAL: Alert and oriented x 3. No focal sensory or strength deficits. Speech normal. Follows commands appropriately. PSYCHIATRIC: Normal Affect, judgement and mood. SKIN: Normal appearance with no rashes or lesions. Course - Re-evaluation Re-evalutation: 08/14/20 21:53 Heart score is 4. Patient had 2 troponins that are slightly elevated. Her EKG is nonacute. Reviewed all imaging. Ambulated and had a pulse ox dropped to 89% on room air. States she no longer has any chest pain. Patient took 1 baby aspirin at home so I gave her 3 more. I did recommend that patient be admitted to the hospital for exertional dyspnea and mildly elevated troponin. Patient is agreeable to this. I discussed with the hospitalist for admission. - Vital Signs Vital signs: Temp Pulse Resp BP Pulse Ox 98.5 F 17 155/70 H 98 08/14/20 13:02 08/14/20 21:01 08/14/20 20:17 08/14/20 21:01 - Laboratory Result Diagrams: 08/14/20 12:50 08/14/20 12:50 Laboratory results interpreted by me: 08/14/20 12:50 BUN 32 H Est GFR (MDRD) Non-Af 53 L Glucose 116 H - Diagnostic Test Radiology reviewed: Image reviewed, Reports reviewed - EKG Interpretation by Wy EKG shows normal: Sinus rhythm Rate: Normal When compared to previous EKG there are: Previous EKG unavailable Additional EKG results interpreted by me: 08/14/20 15:36 EKG interpreted by ok. Sinus rhythm at a rate of 72. QTC 465. No acute ST changes. Previous EKG not available for comparison. Discharge - Discharge Clinical Impression: Dyspnea on exertion Chest pain Qualifiers: Chest pain type: unspecified Qualified Code(s): R07.9 - Chest pain, unspecified Disposition: ADMITTED OBSERVATION Admitting Provider: [facility] Unit Admitted: Telemetry
[2020-08-14] MEDS ORDERED: ASPIRIN 81 MG TABLET, CHEWABLE PO ONE (16:57)
[2020-08-14] MEDS ORDERED: TRAMADOL HCL 50 MG TABLET PO PRN (19:20)
[2020-08-14] MEDS ORDERED: ZOLPIDEM TARTRATE 5 MG TABLET PO PRN (19:20)
--- NOTE | 2020-08-14 19:28 | EKG REPORT ---
SEVERITY:- OTHERWISE NORMAL ECG - SINUS RHYTHM BORDERLINE LEFT AXIS DEVIATION : Confirmed by: Ludy Curtis MD 14-Aug-2020 19:27:29
[2020-08-14] MEDS ORDERED: NITROGLYCERIN 0.4 MG/TAB 25 TAB/BOTTLE SL PRN (19:30)
[2020-08-14 21:38] LABS: CREATINE KINASE MB 0.86 ng/mL (<4.55); TROPONIN I 0.022 ng/mL
[2020-08-15 03:26] LABS: ABSOLUTE EOSINOPHILS # (AUTO) 0.1 10^3/uL (0.0-0.6); ABSOLUTE LYMPHOCYTES (AUTO) 1.1 10^3/uL (0.5-4.7); ABSOLUTE MONOCYTES (AUTO) 0.5 10^3/uL (0.1-1.4); ABSOLUTE NEUT (AUTO) 3.3 10^3/uL (1.7-8.2); EOSINOPHILS % (AUTO) 1.5 % (0-6); HEMATOCRIT 35.6 % (36.0-47.0); HEMOGLOBIN 12.5 g/dL (12.0-15.5); LYMPHOCYTES % (AUTO) 21.8 % (13-45); MEAN CORPUSCULAR HEMOGLOBIN 30.7 pg (27.0-33.4); MEAN CORPUSCULAR HGB CONC 35.2 g/dL (32.0-36.0); MEAN CORPUSCULAR VOLUME 87 fl (80-97); MONOCYTES % (AUTO) 9.2 % (3-13); PLATELET COUNT 179 10^3/uL (150-450); RED BLOOD COUNT 4.08 10^6/uL (3.72-5.28); SEGMENTED NEUTROPHILS % (AUTO) 66.5 % (42-78); TOTAL CELLS COUNTED % (AUTO) 100 %
[2020-08-15 03:43] LABS: ALBUMIN 3.5 g/dL (3.5-5.0); ALKALINE PHOSPHATASE 90 U/L (38-126); ANION GAP 9 (5-19); ASPARTATE AMINO TRANSFERASE 20 U/L (14-36); BILIRUBIN,DIRECT 0.3 mg/dL (0.0-0.4); BILIRUBIN,TOTAL 0.8 mg/dL (0.2-1.3); BLOOD UREA NITROGEN 26 mg/dL (7-20); CALCIUM 8.9 mg/dL (8.4-10.2); CARBON DIOXIDE 26 mmol/L (22-30); CHLORIDE 101 mmol/L (98-107); CHOLESTEROL 131.37 mg/dL (0-200); CREATINE KINASE 65 U/L (30-135); GLUCOSE 106 mg/dL (75-110); POTASSIUM 3.7 mmol/L (3.6-5.0); TOTAL PROTEIN 5.6 g/dL (6.3-8.2); TRIGLYCERIDES 88 mg/dL (<150)
[2020-08-15 03:57] LABS: DIRECT LDL 54 mg/dL (<100)
[2020-08-15 03:58] LABS: CREATINE KINASE MB 1.18 ng/mL (<4.55); TROPONIN I 0.019 ng/mL
[2020-08-15] MEDS ORDERED: PANTOPRAZOLE SODIUM 40 MG TABLET.DR PO SCH (06:00)
[2020-08-15] MEDS ORDERED: INFLUENZA QUAD (6MOS+) 2020-21 VAC 0.5 ML SYR IM ONE (08:00)
[2020-08-15] MEDS ORDERED: LOSARTAN POTASSIUM 50 MG TABLET PO SCH (10:00)
[2020-08-15] MEDS ORDERED: ENOXAPARIN SODIUM INJ 40 MG/0.4 ML DISP.SYRIN SUBCUT SCH (10:00)
[2020-08-15] MEDS ORDERED: (PENDING PHARMACY ID) (Losartan/Hydrochlorothiazide [Hyzaar 50-12.5 Tablet] 1 TAB) PO SCH (10:00)
[2020-08-15] MEDS ORDERED: HYDROCHLOROTHIAZIDE 12.5 MG TABLET PO SCH (10:00)
[2020-08-15] MEDS ORDERED: ASPIRIN 81 MG TABLET, CHEWABLE PO SCH (10:00)
[2020-08-15 13:02] LABS: CREATINE KINASE MB 1.27 ng/mL (<4.55); TROPONIN I 0.015 ng/mL
--- NOTE | 2020-08-15 15:37 | PDOC H&P ---
History of Present Illness Admission Date/PCP: 08/14/20 18:08 VERN MICHAUD MD Patient complains of: Chest Pain, Shortness of breath History of Present Illness: YUE MARTINEZ is a 74 year old female patient of Dr. Vern Michaud who presented to the ED with complain about new onset chest pain with associated difficulty with breathing. She described her chest discomfort as a warm feeling over anterior chest left side. She reported associated more than usual shortness of breath related with exertion. She denied any significant history of reflux problem. She denied radiation of pain into her neck, shoulder joint region, or upper left arm. She denied any associated palpitation, nausea, vomiting, or diaphoresis. No associated coughing, headache, or dizziness. She denied alcohol abuse, illicit drug usage, or ongoing cigarette smoking. Her initial ED evaluat ion was unrevealing but due to her co-morbidities it was advised that she should be admitted to observation bed for further evaluation regarding acute coronary syndrome. Her morbidities are listed below. Past Medical History Cardiac Medical History: Reports: Hyperlipidema, Hypertension, Pulmonary Embolism Denies: Coronary Artery Disease, Myocardial Infarction Pulmonary Medical History: Reports: Pneumonia - 2008 Denies: Asthma, Bronchitis, Chronic Obstructive Pulmonary Disease (COPD) Neurological Medical History: Denies: Seizures Malignancy Medical History: Reports: Colorectal Cancer GI Medical History: Denies: Hepatitis, Hiatal Hernia Musculoskeltal Medical History: Reports: Arthritis - hip left Hematology: Denies: Anemia - TEENAGER, Sickle Cell Disease Past Surgical History Past Surgical History: Reports: Herniorrhaphy, Hysterectomy, Orthopedic Surgery - right knee replacement, Tonsillectomy, Other - colon resection for cancer Denies: Amputation, Mastectomy, Pacemaker Social History Smoking Status: Former Smoker Frequency of Alcohol Use: None Hx Recreational Drug Use: No Drugs: None Family History Family History: Reviewed & Not Pertinent, Hypertension Parental Family History Reviewed: Yes Children Family History Reviewed: Yes Sibling(s) Family History Reviewed.: Yes Medication/Allergy Home Medications: Aspirin [Aspirin 81 mg Chewable Tablet] 81 mg PO DAILY 06/03/14 Potassium Chloride [Klor-Con 10 Meq Tablet ER] 10 meq PO DAILY 06/03/14 Simvastatin 40 mg PO QPM 06/03/17 Tramadol HCl 50 mg PO Q8HP PRN 06/03/17 Zolpidem Tartrate [Ambien 5 mg Tablet] 5 mg PO HSP PRN 02/14/19 Losartan/Hydrochlorothiazide [Hyzaar 50-12.5 Tablet] 1 tab PO DAILY 08/14/20 Meloxicam [Mobic] 15 mg PO DAILY 08/14/20 Allergies/Adverse Reactions: No Known Allergies Allergy (Verified 03/09/19 11:45) Review of Systems Constitutional: ABSENT: chills, fever(s), headache(s), weight gain, weight loss Eyes: ABSENT: visual disturbances Ears: ABSENT: hearing changes Cardiovascular: PRESENT: chest pain, dyspnea on exertion. ABSENT: edema, orthropnea, palpitations Respiratory: PRESENT: dyspnea. ABSENT: cough, hemoptysis Gastrointestinal: ABSENT: abdominal pain, constipation, diarrhea, hematemesis, hematochezia, nausea, vomiting Genitourinary: ABSENT: dysuria, hematuria Musculoskeletal: ABSENT: joint swelling Integumentary: ABSENT: rash, wounds Neurological: ABSENT: abnormal gait, abnormal speech, confusion, dizziness, focal weakness, syncope Psychiatric: ABSENT: anxiety, depression, homidical ideation, suicidal ideation Endocrine: ABSENT: cold intolerance, heat intolerance, polydipsia, polyuria Hematologic/Lymphatic: ABSENT: easy bleeding, easy bruising, lymphadenopathy Physical Exam Vital Signs: Temp Pulse Resp BP Pulse Ox 98.5 F 21 H 171/67 H 96 08/14/20 13:02 08/14/20 19:00 08/14/20 18:22 08/14/20 19:00 Intake & Output 08/13/20 08/14/20 08/15/20 06:59 06:59 06:59 Weight 116.573 kg General appearance: PRESENT: no acute distress, morbidly obese Head exam: PRESENT: atraumatic, normocephalic Eye exam: PRESENT: conjunctiva pink, EOMI, PERRLA. ABSENT: scleral icterus Ear exam: PRESENT: normal external ear exam Mouth exam: PRESENT: moist, tongue midline Neck exam: PRESENT: full ROM. ABSENT: carotid bruit, JVD, lymphadenopathy, t hyromegaly Respiratory exam: PRESENT: clear to auscultation nathan, decreased breath sounds - BILATERALLY Cardiovascular exam: PRESENT: RRR, +S1, +S2. ABSENT: diastolic murmur, rubs, systolic murmur Vascular exam: PRESENT: normal capillary refill. ABSENT: pallor GI/Abdominal exam: PRESENT: normal bowel sounds, soft. ABSENT: distended, guarding, mass, organolmegaly, rebound, tenderness Rectal exam: PRESENT: deferred Extremities exam: ABSENT: pedal edema Neurological exam: PRESENT: alert, awake, oriented to person, oriented to place, oriented to time, oriented to situation, CN II-XII grossly intact. ABSENT: motor sensory deficit Psychiatric exam: PRESENT: appropriate affect, normal mood. ABSENT: homicidal ideation, suicidal ideation Skin exam: PRESENT: dry, intact, warm. ABSENT: cyanosis, rash Results Laboratory Results: 08/14/20 12:50 08/14/20 12:50 08/14/20 08/14/20 08/14/20 12:50 12:50 12:50 WBC 5.3 RBC 4.28 Hgb 13.1 Hct 37.7 MCV 88 MCH 30.6 MCHC 34.7 RDW 13.9 Plt Count 191 Seg Neutrophils % 76.4 Sodium 139.1 Potassium 4.0 Chloride 101 Carbon Dioxide 30 Anion Gap 8 BUN 32 H Creatinine 1.01 Est GFR ( Amer) > 60 Glucose 116 H Calcium 9.0 Magnesium 2.3 Total Bilirubin 0.7 AST 20 Alkaline Phosphatase 90 Total Protein 6.4 Albumin 4.0 08/14/20 08/14/20 08/14/20 12:50 12:50 12:50 Creatine Kinase 49 CK-MB (CK-2) 0.88 Troponin I 0.019 NT-Pro-B Natriuret Pep 432 08/14/20 16:05 Creatine Kinase CK-MB (CK-2) Troponin I 0.023 NT-Pro-B Natriuret Pep Impressions: Chest X-Ray 08/14/20 13:10 IMPRESSION: NO ACUTE RADIOGRAPHIC FINDING IN THE CHEST. Assessment & Plan - Diagnosis (1) Chest pain Qualifiers: Chest pain type: unspecified Qualified Code(s): R07.9 - Chest pain, unspecified Plan: See admitting attending physician orders for details about care plan. (2) Dyspnea on exertion Is this a current diagnosis for this admission?: Yes Plan: See admitting attending physician orders for details about care plan. (3) Essential hypertension Is this a current diagnosis for this admission?: Yes Plan: See admitting attending physician orders for details about care plan. (4) HLD (hyperlipidemia) Qualifiers: Hyperlipidemia type: unspecified Qualified Code(s): E78.5 - Hyperlipidemia, unspecified Is this a current diagnosis for this admission?: Yes Plan: See admitting attending physician orders for details about care plan. (5) Morbid obesity with BMI of 40.0-44.9, adult Is this a current diagnosis for this admission?: Yes Plan: See admitting attending physician orders for details about care plan. - Time Time Spent: 50 to 70 Minutes Medications reviewed and adjusted accordingly: Yes Anticipated Discharge Disposition: Home, Self Care Anticipated Discharge Timeframe: within 48 hours - Inpatient Certification Based on my medical assessment, after consideration of the patient's comorbidities, presenting symptoms, or acuity I expect that the services needed warrant INPATIENT care.: Yes I certify that my determination is in accordance with my understanding of Medicare's requirements for reasonable and necessary INPATIENT services [42 CFR 412.3e].: Yes Medical Necessity: Significant Comorbidiites Make Outpatient Treatment Too Risky, Need Close Monitoring Due to Risk of Patient Decompensation, Risk of Complication if Not Cared For in Hospital, Risk of Diagnosis Which Will Require Inpatient Eval/Care/Monitoring Post Hospital Care: D/C [employer] Documentation - Plan Summary Plan Summary: See admitting attending physician orders for details about care plan.
--- NOTE | 2020-08-15 15:42 | PDOC DISCHARGE SUMMARY ---
Impression - Admit/DC Date/PCP Admission Date/Primary Care Provider: 08/14/20 18:08 JAZZY DANIEL MD Discharge Date: 08/15/20 - Assessment Summary: Patient was admitted for reported left sided chest pain with more than usual sh ortness of breath on the day of her presentation. She reported relief of her symptoms with self administration of sublingual nitroglycerine and Aspirin prior to arrival in the ED. Her serial cardiac enzymes remain in normal range. She will be discharge home today with instruction to follow up with Dr. Daniel, coo, for further evaluation in outpatient. - Additional Information Referrals: JAZZY DANIEL MD [Primary Care Provider] - Follow up as needed VERN ORDONEZ MD [ACTIVE STAFF] - (Call office for appointment) Prescriptions: Nitroglycerin [Nitrostat 0.4 mg (1/150 Gr) Tabs 25/Bottle] 1 tab SL Q5MP PRN #1 bottle PRN Reason: Home Medications: Aspirin [Aspirin 81 mg Chewable Tablet] 81 mg PO DAILY 06/03/14 Potassium Chloride [Klor-Con 10 Meq Tablet ER] 10 meq PO DAILY 06/03/14 Simvastatin 40 mg PO QPM 06/03/17 Tramadol HCl 50 mg PO Q8HP PRN 06/03/17 Zolpidem Tartrate [Ambien 5 mg Tablet] 5 mg PO HSP PRN 02/14/19 Losartan/Hydrochlorothiazide [Hyzaar 50-12.5 Tablet] 1 tab PO DAILY 08/14/20 Nitroglycerin [Nitrostat 0.4 mg (1/150 Gr) Tabs 25/Bottle] 1 tab SL Q5MP PRN #1 bottle 08/15/20 History of Present Illiness History of Present Illness: YUE MARTINEZ is a 74 year old female patient of Dr. Vern Ordonez who presented to the ED with complain about new onset chest pain with associated difficulty with breathing. She described her chest discomfort as a warm feeling over anterior chest left side. She reported associated more than usual shortness of breath related with exertion. She denied any significant history of reflux problem. She denied radiation of pain into her neck, shoulder joint region, or upper left arm. She denied any associated palpitation, nausea, vomiting, or diaphoresis. No associated coughing, headache, or dizziness. She denied alcohol abuse, illicit drug usage, or ongoing cigarette smoking. Her initial ED ev aluation was unrevealing but due to her co-morbidities it was advised that she should be admitted to observation bed for further evaluation regarding acute coronary syndrome. Her morbidities are listed below. Hospital Course Hospital Course: Patient was admitted for reported left sided chest pain with more than usual shortness of breath on the day of her presentation. She reported relief of her symptoms with self administration of sublingual nitroglycerine and Aspirin prior to arrival in the ED. Her serial cardiac enzymes remain in normal range. She w ill be discharge home today with instruction to follow up with Dr. Daniel, coo, for further evaluation in outpatient. Physical Exam Vital Signs: Temp Pulse Resp BP Pulse Ox 98.0 F 65 18 137/57 H 97 08/15/20 10:00 08/15/20 07:43 08/15/20 07:43 08/15/20 07:43 08/15/20 07:43 Intake & Output 08/14/20 08/15/20 08/16/20 06:59 06:59 06:59 Intake Total 272 Balance 272 Weight 115.1 kg General appearance: PRESENT: no acute distress, morbidly obese Head exam: PRESENT: atraumatic, normocephalic Eye exam: PRESENT: conjunctiva pink, EOMI, PERRLA. ABSENT: scleral icterus Ear exam: PRESENT: normal external ear exam Mouth exam: PRESENT: moist, tongue midline Neck exam: ABSENT: carotid bruit, JVD, lymphadenopathy, thyromegaly Respiratory exam: PRESENT: clear to auscultation nathan. ABSENT: rales, rhonchi, wheezes Cardiovascular exam: PRESENT: RRR. ABSENT: diastolic murmur, rubs, systolic murmur Pulses: PRESENT: normal dorsalis pedis pul Vascular exam: PRESENT: normal capillary refill GI/Abdominal exam: PRESENT: normal bowel sounds, soft. ABSENT: distended, guarding, mass, organolmegaly, rebound, tenderness Extremities exam: PRESENT: full ROM. ABSENT: calf tenderness, clubbing, pedal edema Neurological exam: PRESENT: alert, awake, oriented to person, oriented to place, oriented to time, oriented to situation, CN II-XII grossly intact. ABSENT: motor sensory deficit Psychiatric exam: PRESENT: appropriate affect, normal mood. ABSENT: homicidal ideation, suicidal ideation Skin exam: PRESENT: dry, warm Results Laboratory Results: WBC 5.0 10^3/uL (4.0-10.5) 08/15/20 03:10 RBC 4.08 10^6/uL (3.72-5.28) 08/15/20 03:10 Hgb 12.5 g/dL (12.0-15.5) 08/15/20 03:10 Hct 35.6 % (36.0-47.0) L 08/15/20 03:10 MCV 87 fl (80-97) 08/15/20 03:10 MCH 30.7 pg (27.0-33.4) 08/15/20 03:10 MCHC 35.2 g/dL (32.0-36.0) 08/15/20 03:10 RDW 14.0 % (11.5-14.0) 08/15/20 03:10 Plt Count 179 10^3/uL (150-450) 08/15/20 03:10 Lymph % (Auto) 21.8 % (13-45) 08/15/20 03:10 Arroyo % (Auto) 9.2 % (3-13) 08/15/20 03:10 Eos % (Auto) 1.5 % (0-6) 08/15/20 03:10 Baso % (Auto) 1.0 % (0-2) 08/15/20 03:10 Absolute Neuts (auto) 3.3 10^3/uL (1.7-8.2) 08/15/20 03:10 Absolute Lymphs (auto) 1.1 10^3/uL (0.5-4.7) 08/15/20 03:10 Absolute Monos (auto) 0.5 10^3/uL (0.1-1.4) 08/15/20 03:10 Absolute Eos (auto) 0.1 10^3/uL (0.0-0.6) 08/15/20 03:10 Absolute Basos (auto) 0.0 10^3/uL (0.0-0.2) 08/15/20 03:10 Seg Neutrophils % 66.5 % (42-78) 08/15/20 03:10 Sodium 135.6 mmol/L (137-145) L 08/15/20 03:10 Potassium 3.7 mmol/L (3.6-5.0) 08/15/20 03:10 Chloride 101 mmol/L (98-107) 08/15/20 03:10 Carbon Dioxide 26 mmol/L (22-30) 08/15/20 03:10 Anion Gap 9 (5-19) 08/15/20 03:10 BUN 26 mg/dL (7-20) H 08/15/20 03:10 Creatinine 0.78 mg/dL (0.52-1.25) 08/15/20 03:10 Est GFR ( Amer) > 60 (>60) 08/15/20 03:10 Est GFR (MDRD) Non-Af > 60 (>60) 08/15/20 03:10 Glucose 106 mg/dL (75-110) 08/15/20 03:10 Calcium 8.9 mg/dL (8.4-10.2) 08/15/20 03:10 Magnesium 2.3 mg/dL (1.6-2.3) 08/14/20 12:50 Total Bilirubin 0.8 mg/dL (0.2-1.3) 08/15/20 03:10 Direct Bilirubin 0.3 mg/dL (0.0-0.4) 08/15/20 03:10 Neonat Total Bilirubin Not Reportable 08/15/20 03:10 Neonat Direct Bilirubin Not Reportable 08/15/20 03:10 Neonat Indirect Bili Not Reportable 08/15/20 03:10 AST 20 U/L (14-36) 08/15/20 03:10 ALT 16 U/L (<35) 08/15/20 03:10 Alkaline Phosphatase 90 U/L (38-126) 08/15/20 03:10 Creatine Kinase 72 U/L (30-135) 08/15/20 11:57 CK-MB (CK-2) 1.27 ng/mL (<4.55) 08/15/20 11:57 Troponin I 0.015 ng/mL 08/15/20 11:57 NT-Pro-B Natriuret Pep 432 pg/mL (<450) 08/14/20 12:50 Total Protein 5.6 g/dL (6.3-8.2) L 08/15/20 03:10 Albumin 3.5 g/dL (3.5-5.0) 08/15/20 03:10 Triglycerides 88 mg/dL (<150) 08/15/20 03:10 Cholesterol 131.37 mg/dL (0-200) 08/15/20 03:10 LDL Cholesterol Direct 54 mg/dL (<100) 08/15/20 03:10 VLDL Cholesterol 18.0 mg/dL (10-31) 08/15/20 03:10 HDL Cholesterol 59 mg/dL (>40) 08/15/20 03:10 08/14/20 08/14/20 08/14/20 12:50 12:50 16:05 CK-MB (CK-2) 0.88 Troponin I 0.019 0.023 NT-Pro-B Natriuret Pep 432 08/14/20 08/15/20 08/15/20 20:50 03:10 09:36 CK-MB (CK-2) 0.86 1.18 Cancelled Troponin I 0.022 0.019 Cancelled NT-Pro-B Natriuret Pep 08/15/20 11:57 CK-MB (CK-2) 1.27 Troponin I 0.015 NT-Pro-B Natriuret Pep Impressions: Chest X-Ray 08/14/20 13:10 IMPRESSION: NO ACUTE RADIOGRAPHIC FINDING IN THE CHEST. Plan Health Concerns: Recurrence of her symptoms and high risk for readmission. Plan of Treatment: Continue all preadmission medication management. Follow up with Dr. Daniel for possible pharmacologic stress test evaluation. Goals: Reduce readmission risk. Time Spent: Less than 30 Minutes Stroke Is this a Stroke Patient?: No Acute Heart Failure Is this a Heart Failure Patient?: No
[2020-08-15 16:11] VITALS: BP 153/91
[2020-08-15] MEDS ORDERED: SIMVASTATIN 40 MG TABLET PO SCH (18:00)
--- NOTE | 2020-08-16 00:56 | EKG REPORT ---
SEVERITY:- NORMAL ECG - SINUS RHYTHM : Confirmed by: Ludy Curtis MD 16-Aug-2020 00:56:06
== END 2020-08-15 16:20 | disposition home or self-care (01) ==
LOC: ER 12:27 → EH 18:08 → 3S 21:18
PROVIDERS: ADMIT Internal Medicine Geriatric Medicine; ATTEND Internal Medicine Geriatric Medicine
DX: R07.9 Chest pain, unspecified (principal); R06.09 Other forms of dyspnea; I10 Essential (primary) hypertension; E78.5 Hyperlipidemia, unspecified; E66.01 Morbid (severe) obesity due to excess calories; Z68.41 Body mass index [BMI] 40.0-44.9, adult; R79.89 Other specified abnormal findings of blood chemistry; E78.00 Pure hypercholesterolemia, unspecified; J43.9 Emphysema, unspecified; Z79.899 Other long term (current) drug therapy; Z79.82 Long term (current) use of aspirin
CPT/HCPCS: 93005 ×2; 99285; 36415 ×2; 82553 ×2; 82550 ×2; 83735; 85025 ×2; 80053 ×2; 84484 ×2; 80061; 83880; 71045; 93010 ×2; G0378 ×3; A9270 ×5; J1650; J3490

== ENCOUNTER 2020-08-17 20:59 | Inpatient (IN) | payer MEDICARE ==
[2020-08-17] MEDS ORDERED: ASPIRIN 81 MG TABLET, CHEWABLE PO ONE (21:41)
--- NOTE | 2020-08-17 21:41 | ER Document Report ---
ED Medical Screen (RME) - General Chief Complaint: Chest Pain Stated Complaint: CHEST PAIN Time Seen by Provider: 08/17/20 21:35 Primary Care Provider: JAZZY COLEMAN MD [Primary Care Provider] - Follow up as needed Mode of Arrival: Wheelchair Information source: Patient Notes: HPI; 75-year-old female presents to the emergency room with worsening chest pain with shortness of breath with exertion that started around 7:30 PM. States she was here admitted and discharged Tuesday afternoon states her symptoms have been getting progressively worse. States tonight she took 2 baby aspirin and 3 nitro without relief. Describes it as a sharp burning pain across her chest. PE: Alert and oriented x3. Lungs: Clear to auscultation without rales, rhonchi, wheezes. Heart: Regular rate rhythm without murmurs, rubs, gallops. I have greeted and performed a rapid initial assessment of this patient. A comprehensive ED assessment and evaluation of the patient, analysis of test results and completion of the medical decision making process will be conducted by additional ED providers. I have specifically instructed the patient or family members with the patient to immediately return to any nursing staff should anything change in the patient's condition or with their chief complaint. TRAVEL OUTSIDE OF THE [place] IN LAST 30 DAYS: No - Related Data Allergies/Adverse Reactions: No Known Allergies Allergy (Verified 03/09/19 11:45) Past Medical History - Past Medical History Cardiac Medical History: Reports: Hx Hypercholesterolemia, Hx Hypertension, Hx Pulmonary Embolism Denies: Hx Coronary Artery Disease, Hx Heart Attack Pulmonary Medical History: Reports: Hx Pneumonia - 2007 Denies: Hx Asthma, Hx Bronchitis, Hx COPD Neurological Medical History: Denies: Hx Cerebrovascular Accident, Hx Seizures Renal/ Medical History: Denies: Hx Peritoneal Dialysis Malignancy Medical History: Reports: Hx Colorectal Cancer GI Medical History: Denies: Hx Hepatitis, Hx Hiatal Hernia, Hx Ulcer Musculoskeltal Medical History: 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 Denies: Hx Mastectomy, Hx Open Heart Surgery, Hx Pacemaker - Immunizations Hx Diphtheria, Pertussis, Tetanus Vaccination: Yes Physical Exam - Vital signs Vitals: Temp Pulse Resp BP Pulse Ox 97.9 F 90 22 H 150/73 H 94 08/17/20 21:11 08/17/20 21:11 08/17/20 21:11 08/17/20 21:11 08/17/20 21:11 Course - Vital Signs Vital signs: Temp Pulse Resp BP Pulse Ox 97.9 F 90 22 H 150/73 H 94 08/17/20 21:11 08/17/20 21:11 08/17/20 21:11 08/17/20 21:11 08/17/20 21:11 Doctor's Discharge - Discharge Referrals: JAZZY COLEMAN MD [Primary Care Provider] - Follow up as needed
[2020-08-17 22:11] LABS: ABSOLUTE EOSINOPHILS # (AUTO) 0.1 10^3/uL (0.0-0.6); ABSOLUTE LYMPHOCYTES (AUTO) 0.8 10^3/uL (0.5-4.7); ABSOLUTE MONOCYTES (AUTO) 0.7 10^3/uL (0.1-1.4); ABSOLUTE NEUT (AUTO) 5.3 10^3/uL (1.7-8.2); BASOPHILS % (AUTO) 0.6 % (0-2); EOSINOPHILS % (AUTO) 1.2 % (0-6); HEMATOCRIT 36.9 % (36.0-47.0); HEMOGLOBIN 12.8 g/dL (12.0-15.5); LYMPHOCYTES % (AUTO) 12.1 % (13-45); MEAN CORPUSCULAR HEMOGLOBIN 30.4 pg (27.0-33.4); MEAN CORPUSCULAR HGB CONC 34.7 g/dL (32.0-36.0); MEAN CORPUSCULAR VOLUME 88 fl (80-97); PLATELET COUNT 203 10^3/uL (150-450); RED BLOOD COUNT 4.22 10^6/uL (3.72-5.28); RED CELL DISTRIBUTION WIDTH 14.1 % (11.5-14.0); SEGMENTED NEUTROPHILS % (AUTO) 76.1 % (42-78); TOTAL CELLS COUNTED % (AUTO) 100 %
[2020-08-17 22:29] LABS: ALBUMIN 3.8 g/dL (3.5-5.0); ALKALINE PHOSPHATASE 86 U/L (38-126); ANION GAP 11 (5-19); ASPARTATE AMINO TRANSFERASE 22 U/L (14-36); BILIRUBIN,DIRECT 0.4 mg/dL (0.0-0.4); BILIRUBIN,TOTAL 0.7 mg/dL (0.2-1.3); BLOOD UREA NITROGEN 34 mg/dL (7-20); CALCIUM 9.2 mg/dL (8.4-10.2); CARBON DIOXIDE 24 mmol/L (22-30); CHLORIDE 105 mmol/L (98-107); CREATINE KINASE 56 U/L (30-135); GLUCOSE 123 mg/dL (75-110); POTASSIUM 3.8 mmol/L (3.6-5.0); TOTAL PROTEIN 6.3 g/dL (6.3-8.2)
[2020-08-17 22:38] LABS: CREATINE KINASE MB 1.29 ng/mL (<4.55)
[2020-08-17 22:44] LABS: TROPONIN I 0.142 ng/mL
--- NOTE | 2020-08-17 23:11 | EKG REPORT ---
SEVERITY:- ABNORMAL ECG - SINUS RHYTHM LEFT ANTERIOR FASCICULAR BLOCK : Confirmed by: Ludy Curtis MD 17-Aug-2020 23:11:19
[2020-08-17] MEDS ORDERED: NITROGLYCERIN 2% OINTMENT 1 GM PACKET TP ONE (23:26)
--- NOTE | 2020-08-17 23:32 | ER Document Report ---
ED General - General Chief Complaint: Chest Pain Stated Complaint: CHEST PAIN Time Seen by Provider: 08/17/20 21:35 Primary Care Provider: JAZZY COLEMAN MD [EMERITUS] - Follow up as needed Mode of Arrival: Wheelchair TRAVEL OUTSIDE OF THE [place] IN LAST 30 DAYS: No - HPI Notes: Patient is a 75-year-old female who presents to the emergency department for jacki mellisa. She is actually admitted to the hospital with central/left-sided chest pain and increased shortness of breath on August 14. She was discharged on the with plans to follow-up with her technical services rep. Patient states today she was even more short of breath. She states she became short of breath and walking to the car to go to dinner, became more short of breath at dinner. She states this dyspnea was worsened with any sort of exertion. She then developed a left and central chest pain that she describes as "hard". It progressed to a tight pain. She states it does not radiate. She denies any associated diaphoresis or near syncope. Patient states that while at home she took 3 sublingual nitroglycerin which did help her pain. She states that she came here, was given further aspirin, and upon presenting to the room became and is currently chest pain-free. - Related Data Allergies/Adverse Reactions: No Known Allergies Allergy (Verified 03/09/19 11:45) Home Medications: Aspirin 81 mg daily, Klor-Con 10 mEq daily, simvastatin 40 mg daily, Ultram 50 mg every 8 hours as needed, Ambien 5 mg as needed for sleep, losartan/HCTZ 50/12.5 mg daily, nitroglycerin 0.4 mg sublingual as needed Past Medical History - General Information source: Patient - Social History Smoking Status: Never Smoker Family History: Reviewed & Not Pertinent, Hypertension - Past Medical History Cardiac Medical History: Reports: Hx Hypercholesterolemia, Hx Hypertension, Hx Pulmonary Embolism Denies: Hx Coronary Artery Disease, Hx Heart Attack Pulmonary Medical History: Reports: Hx Pneumonia - 2007 Denies: Hx Asthma, Hx Bronchitis, Hx COPD Neurological Medical History: Denies: Hx Cerebrovascular Accident, Hx Seizures Renal/ Medical History: Denies: Hx Peritoneal Dialysis Malignancy Medical History: Reports: Hx Colorectal Cancer GI Medical History: Denies: Hx Hepatitis, Hx Hiatal Hernia, Hx Ulcer Musculoskeletal Medical History: 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 Psychiatric Medical History: Denies: Hx Depression Infectious Medical History: Denies: Hx Hepatitis Past Surgical History: Reports: Hx Abdominal Surgery - hernia, colon surgery, Hx Bowel Surgery - bowel ressection, Hx Herniorrhaphy, Hx Hysterectomy, Hx Ortho pedic Surgery - right knee replacement, Hx Tonsillectomy, Other - colon resection for cancer. Denies: Hx Mastectomy, Hx Open Heart Surgery, Hx Pacemaker - Immunizations Hx Diphtheria, Pertussis, Tetanus Vaccination: Yes Hx Pneumococcal Vaccination: 11/07/15 Review of Systems - Review of Systems Constitutional: No symptoms reported EENT: No symptoms reported Cardiovascular: See HPI Respiratory: See HPI Gastrointestinal: No symptoms reported Genitourinary: No symptoms reported Musculoskeletal: No symptoms reported Skin: No symptoms reported Neurological/Psychological: No symptoms reported Physical Exam - Vital signs Vitals: Temp Pulse Resp BP Pulse Ox 97.9 F 90 22 H 150/73 H 94 08/17/20 21:11 08/17/20 21:11 08/17/20 21:11 08/17/20 21:11 08/17/20 21:11 - Notes Notes: This is a pleasant 75-year-old female who appears her stated age, no acute distress. She is resting comfortable, upright in the bed. Vital signs reviewed, please refer to chart. Head is normocephalic, atraumatic. Pupils equal round, reactive to light. Neck is supple without meningismus. Heart is regular rate and rhythm. Lungs are clear to auscultation bilaterally. Abdomen is soft, nontender, normoactive bowel sounds throughout. Extremities without c yanosis, clubbing. She has edema, right greater than left, nonpitting, that is stable and chronic for the patient. Posterior calves are nontender. Peripheral pulses are equal. Skin is warm and dry. Patient is awake, alert, neurological exam is nonfocal. Course - Re-evaluation Re-evalutation: 08/17/20 23:31 Patient presents to the emergency department for evaluation. She was initially seen through triage. Laboratory investigations, EKG, imaging were ordered. Patient's initial troponin came back elevated. Patient has remained chest pain- free. I did order nitroglycerin ointment to be placed. Because of her history for pulmonary embolus and dyspnea being her primary symptom, I was concerned about the possibility of PE as the etiology of her symptoms. CT angiogram of the chest is ordered. Patient is currently chest pain-free, remained stable on the monitor with a heart rate in the 70s, respiratory rate of 18, and blood pressure of 128/76. We will continue to monitor. 08/18/20 00:44 Upon patient receiving her CT angiogram, I reviewed the film, and saw a significant amount of clot noted in bilateral lungs. At 0036 I received a phone call from Dr. Fierro, radiologist reading her study. He notified me of her moderate clot burden, mild right heart strain. She has bilateral PEs, that traveled from the right main pulmonary artery into the right lower lobes. On the left it is mostly in the lower lung. There is also is a chronic appearing clot in the upper lungs. At this point I had already ordered heparin based on our observations. Patient has been notified. I spoke with Dr. Evans, on- call for Dr. Ordonez. He [place] the [place] [facility] [place]. 08/18/20 00:48 Please note that I was unaware of the lesion or lesions noted when I discussed this case with Dr. Evans. I did make the patient aware and they were listed amongst her diagnoses. - Vital Signs Vital signs: Temp Pulse Resp BP Pulse Ox 97.9 F 90 24 H 128/76 H 97 08/17/20 21:11 08/17/20 21:11 08/18/20 00:00 08/17/20 23:01 08/18/20 00:00 - Laboratory Result Diagrams: 08/17/20 21:58 08/17/20 21:58 Laboratory results interpreted by me: 08/17/20 08/17/20 21:58 21:58 RDW 14.1 H Lymph % (Auto) 12.1 L BUN 34 H Est GFR (MDRD) Non-Af 51 L Glucose 123 H - Diagnostic Test Radiology reviewed: Image reviewed, Reports reviewed Radiology results interpreted by me: 08/18/20 00:45 Chest X-Ray 08/17/20 21:40 IMPRESSION: There are no acute lung parenchymal findings. Chest/Abdomen CTA 08/17/20 23:26 IMPRESSION: Bilateral pulmonary emboli. This a moderate thrombus burden, as we discussed. There is evidence of right heart strain. The lungs are grossly clear. Indeterminate lesions within the liver. These may warrant further evaluation if not a known finding These critical finding of pulmonary embolus was discussed personally by phone with, and an understanding was acknowledged by, Dr. HÉCTOR BEARD on 08/17/2020 11:37 PM CDT. - EKG Interpretation by Me Additional EKG results interpreted by me: 08/18/20 00:47 Sinus mechanism with a rate of 86 bpm. Left axis deviation. IVCD. Nonspecific ST changes, but no acute elevation concerning for infarction. No change compared to prior study. Discharge - Discharge Clinical Impression: Pulmonary embolism, bilateral, Lesion of liver Condition: Stable Disposition: ADMITTED INPATIENT Admitting Provider: José Luis Evans covering Unit Admitted: I[facility]U Referrals: JAZZY COLEMAN MD [EMERITUS] - Follow up as needed
--- NOTE | 2020-08-17 23:43 | RADIOLOGY REPORT (SQ) ---
EXAM DESCRIPTION: X-RAY CHEST- One View CLINICAL HISTORY: Chest pain COMPARISON: August 14, 2020 TECHNIQUE: Single view of the chest. FINDINGS: There are overlying EKG leads. There are no discrete air space infiltrates, pneumothoraces or pleural effusions. The pulmonary vascularity is normal. The cardiomediastinal silhouette is normal in size. Osseous structures are stable. IMPRESSION: There are no acute lung parenchymal findings.
[2020-08-18] MEDS ORDERED: HEPARIN SOD (PORCINE) 1,000 UNIT/ML 10 ML VIAL IV ONE (00:17)
--- NOTE | 2020-08-18 00:40 | RADIOLOGY REPORT (SQ) ---
CLINICAL INDICATION: history of PE, chest pain. . TECHNIQUE: CT arteriography was obtained of the chest with multiplanar MIP and/or 3-D angiographic reconstructions. This exam was performed according to our departmental dose-optimization program, which includes automated exposure control, adjustment of the mA and/or kV according to patient size and/or use of iterative reconstruction techniques. COMPARISON: None available. Prior examination May 30, 2017 is not available. CORRELATION: None. FINDINGS: Adequate contrast bolus. Average Hounsfield unit measurement within main pulmonary artery segment of 209. Artifact from venous opacification. There is evidence of bilateral pulmonary emboli. These extend from the peripheral right main pulmonary artery into upper lobe and interlobar. Multiple subsegmental emboli are seen particularly right lower lobe some which appear to be occlusive. Small age-indeterminate embolus identified left upper lobe with multiple left lower lobe emboli, some which appear occlusive. There is flattening of the interventricular septum. Prominence of the right ventricle. Thoracic aorta is of normal caliber. The heart is enlarged. No pericardial effusion. No bulky mediastinal adenopathy. The lungs are grossly clear. No consolidation or edema. No effusion or pneumothorax. Chronic parenchymal lung change. Motion artifact Visualized abdominal contents demonstrate an indeterminant lesion right lobe of the liver appears be spanning segment IV and VIII measuring approximately 2.8 x 3.5 cm. Series 3 image 82. This does not meet criteria for simple cyst there is no other lesion segment II with subtle nodular peripheral enhancement measuring 2.8 x 2.8 cm, series 3 image 82. Presumed adenoma of the right adrenal measuring approximately 1.5 cm Visualized bones are unremarkable. IMPRESSION: Bilateral pulmonary emboli. This a moderate thrombus burden, as we discussed. There is evidence of right heart strain. The lungs are grossly clear. Indeterminate lesions within the liver. These may warrant further evaluation if not a known finding These critical finding of pulmonary embolus was discussed personally by phone with, and an understanding was acknowledged by, Dr. HÉCTOR BEARD on 08/17/2020 11:37 PM CDT.
[2020-08-18] MEDS: HEPARIN SODIUM,PORCINE/D5W 25,000 UNIT/250 ML RTUINJ IV PRN ×2 (00:43→14:55)
[2020-08-18 00:51] LABS: INTERNATIONAL RATION (INR) 0.93; PROTHROMBIN TIME 12.7 SEC (11.4-15.4)
[2020-08-18 00:52] LABS: PARTIAL THROMBOPLASTIN TIME 29.4 SEC (23.5-35.8)
[2020-08-18 01:41] LABS: APPEARANCE,URINE CLOUDY; BILIRUBIN,URINE NEGATIVE (NEGATIVE); COLOR,URINE YELLOW; GLUCOSE, URINE NEGATIVE (NEGATIVE); KETONES,URINE NEGATIVE (NEGATIVE); LEUKOCYTE ESTERASE,URINE LARGE (NEGATIVE); NITRITE,URINE NEGATIVE (NEGATIVE); PROTEIN,URINE NEGATIVE (NEGATIVE); UROBILINOGEN,URINE NEGATIVE mg/dL (<2.0)
[2020-08-18 02:03] LABS: URINE SPECIFIC GRAVITY > 1.060
[2020-08-18] MEDS ORDERED: HEPARIN SOD (PORCINE) 1,000 UNIT/ML 10 ML VIAL IV PRN (03:18)
[2020-08-18] MEDS ORDERED: NORMAL SALINE 1000 ML 1,000 ML IV PRN (04:18)
[2020-08-18 06:06] LABS: APPEARANCE,URINE CLEAR; BILIRUBIN,URINE NEGATIVE (NEGATIVE); COLOR,URINE YELLOW; GLUCOSE, URINE NEGATIVE (NEGATIVE); KETONES,URINE NEGATIVE (NEGATIVE); PROTEIN,URINE NEGATIVE (NEGATIVE); UROBILINOGEN,URINE NEGATIVE mg/dL (<2.0)
[2020-08-18 06:13] LABS: FREE T4 (FREE THYROXINE) 1.27 ng/dL (0.78-2.19)
[2020-08-18 06:26] LABS: THYROID STIMULATING HORMONE 2.22 uIU/mL (0.47-4.68)
--- NOTE | 2020-08-18 08:24 | PDOC H&P ---
History of Present Illness Admission Date/PCP: 08/18/20 01:21 VENKATA TORRES PA-C Patient complains of: Chest pain History of Present Illness: YUE MARTINEZ is a 75 year old female This is a 75-year-old female with a history of the pulmonary embolism in 2008 history of the colon cancer status post colon resections in 2002 with the last year history of the sigmoidoscopy removing the large polyps currently follow-up with [facility] came to the emergency department with a complaining of chest pain Patient was admitted couple of days back because of the chest pain rule out acute coronary syndromes and discharge and suggest to follow outpatients which patient is currently see the orthopaedic technologist In the emergency department patient underwent for the CT angiogram which suggested bilateral pulmonary embolism with the right side of the heart strain Patient was admitted started on a heparin drips and I saw the patient in the floor denied any chest pain no short of breath Also seen by the hematology " Suggest to continues a heparin drip and work out about the liver lesion which patient said that she has a liver lesion in the past will look at the back history Patient's denied any abdominal pain no nausea no vomiting Patient is denied any blood in the stools no black stools Patient's denied any heart disease patients just follow Dr. whitehead for high blood pressures Past Medical History Cardiac Medical History: Reports: Hyperlipidema, Hypertension, Pulmonary Embolism Denies: Coronary Artery Disease, Myocardial Infarction Pulmonary Medical History: Reports: Pneumonia - 2008 Denies: Asthma, Bronchitis, Chronic Obstructive Pulmonary Disease (COPD) Neurological Medical History: Denies: Seizures Malignancy Medical History: Reports: Colorectal Cancer GI Medical History: Denies: Hepatitis, Hiatal Hernia Musculoskeltal Medical History: Reports: Arthritis - hip left Psychiatric Medical History: Denies: Depression Hematology: Denies: Anemia - TEENAGER, Sickle Cell Disease Past Surgical History Past Surgical History: Reports: Herniorrhaphy, Hysterectomy, Knee Replacement, Orthopedic Surgery - right knee replacement, Tonsillectomy, Other - colon resection for cancer Denies: Amputation, Mastectomy, Pacemaker Social History Information Source: Patient Smoking Status: Never Smoker Electronic Cigarette use?: No Frequency of Alcohol Use: None Hx Recreational Drug Use: No Drugs: None Hx Prescription Drug Abuse: No Family History Family History: Reviewed & Not Pertinent, Hypertension Parental Family History Reviewed: Yes Children Family History Reviewed: Yes Sibling(s) Family History Reviewed.: Yes Medication/Allergy Home Medications: Aspirin [Aspirin 81 mg Chewable Tablet] 81 mg PO DAILY 06/03/14 Potassium Chloride [Klor-Con 10 Meq Tablet ER] 10 meq PO DAILY 06/03/14 Simvastatin 40 mg PO QPM 06/03/17 Tramadol HCl 50 mg PO Q8HP PRN 06/03/17 Zolpidem Tartrate [Ambien 5 mg Tablet] 5 mg PO HSP PRN 02/14/19 Losartan/Hydrochlorothiazide [Hyzaar 50-12.5 Tablet] 1 tab PO DAILY 08/14/20 Nitroglycerin [Nitrostat 0.4 mg (1/150 Gr) Tabs 25/Bottle] 1 tab SL Q5MP PRN #1 bottle 08/15/20 Allergies/Adverse Reactions: No Known Allergies Allergy (Verified 03/09/19 11:45) Review of Systems Constitutional: ABSENT: chills, fever(s), headache(s), weight gain, weight loss Eyes: ABSENT: visual disturbances Ears: ABSENT: hearing changes Cardiovascular: PRESENT: chest pain. ABSENT: dyspnea on exertion, edema, orthropnea, palpitations Respiratory: ABSENT: cough, hemoptysis Gastrointestinal: ABSENT: abdominal pain, constipation, diarrhea, hematemesis, hematochezia, nausea, vomiting Genitourinary: ABSENT: dysuria, hematuria Musculoskeletal: ABSENT: joint swelling Integumentary: ABSENT: rash, wounds Neurological: ABSENT: abnormal gait, abnormal speech, confusion, dizziness, focal weakness, syncope Psychiatric: ABSENT: anxiety, depression, homidical ideation, suicidal ideation Endocrine: ABSENT: cold intolerance, heat intolerance, menstrual abnormalities, polydipsia, polyuria Hematologic/Lymphatic: ABSENT: easy bleeding, easy bruising, lymphadenopathy Physical Exam Vital Signs: Temp Pulse Resp BP Pulse Ox 98.1 F 81 20 138/79 H 100 08/18/20 03:19 08/18/20 03:19 08/18/20 03:19 08/18/20 03:19 08/18/20 03:19 Intake & Output 08/17/20 08/18/20 08/19/20 06:59 06:59 06:59 Intake Total 43 Output Total 300 Balance -257 Weight 112.6 kg General appearance: PRESENT: no acute distress, obese, well-developed, well- nourished Head exam: PRESENT: atraumatic, normocephalic Eye exam: PRESENT: conjunctiva pink, EOMI, PERRLA. ABSENT: scleral icterus Ear exam: PRESENT: normal external ear exam Mouth exam: PRESENT: moist, tongue midline Neck exam: PRESENT: full ROM. ABSENT: carotid bruit, JVD, lymphadenopathy, thyromegaly Respiratory exam: PRESENT: clear to auscultation nathan Cardiovascular exam: PRESENT: RRR. ABSENT: diastolic murmur, rubs, systolic murmur Pulses: PRESENT: normal dorsalis pedis pul, +2 pedal pulses bilateral Vascular exam: PRESENT: normal capillary refill GI/Abdominal exam: PRESENT: normal bowel sounds, soft. ABSENT: distended, guarding, mass, organolmegaly, rebound, tenderness Rectal exam: PRESENT: deferred Neurological exam: PRESENT: alert, awake, oriented to person, oriented to place, oriented to time, oriented to situation, CN II-XII grossly intact. ABSENT: motor sensory deficit Psychiatric exam: PRESENT: appropriate affect, normal mood. ABSENT: homicidal ideation, suicidal ideation Skin exam: PRESENT: dry, intact, warm. ABSENT: cyanosis, rash Results Laboratory Results: 08/17/20 21:58 08/17/20 21:58 08/17/20 08/17/20 08/18/20 21:58 21:58 00:45 WBC 7.0 RBC 4.22 Hgb 12.8 Hct 36.9 MCV 88 MCH 30.4 MCHC 34.7 RDW 14.1 H Plt Count 203 Seg Neutrophils % 76.1 Sodium 139.9 Potassium 3.8 Chloride 105 Carbon Dioxide 24 Anion Gap 11 BUN 34 H Creatinine 1.05 Est GFR ( Amer) > 60 Glucose 123 H Calcium 9.2 Total Bilirubin 0.7 AST 22 Alkaline Phosphatase 86 Total Protein 6.3 Albumin 3.8 TSH 2.22 Free T4 1.27 Urine Color Urine Appearance Urine pH Ur Specific B[place] Urine Protein Urine Glucose (UA) Urine Ketones Urine Blood Urine Nitrite Ur Leukocyte Esterase Urine WBC (Auto) Urine RBC (Auto) 08/18/20 08/18/20 00:57 05:52 WBC RBC Hgb Hct MCV MCH MCHC RDW Plt Count Seg Neutrophils % Sodium Potassium Chloride Carbon Dioxide Anion Gap BUN Creatinine Est GFR ( Amer) Glucose Calcium Total Bilirubin AST Alkaline Phosphatase Total Protein Albumin TSH Free T4 Urine Color YELLOW YELLOW Urine Appearance CLOUDY CLEAR Urine pH 5.0 5.0 Ur Specific Benton > 1.060 1.060 Urine Protein NEGATIVE NEGATIVE Urine Glucose (UA) NEGATIVE NEGATIVE Urine Ketones NEGATIVE NEGATIVE Urine Blood NEGATIVE NEGATIVE Urine Nitrite NEGATIVE Ur Leukocyte Esterase LARGE H Urine WBC (Auto) 48 Urine RBC (Auto) 12 2 08/17/20 08/17/20 08/18/20 21:58 21:58 00:45 Creatine Kinase 56 CK-MB (CK-2) 1.29 Troponin I 0.142 0.288 Impressions: Chest X-Ray 08/17/20 21:40 IMPRESSION: There are no acute lung parenchymal findings. Chest/Abdomen CTA 08/17/20 23:26 IMPRESSION: Bilateral pulmonary emboli. This a moderate thrombus burden, as we discussed. There is evidence of right heart strain. The lungs are grossly clear. Indeterminate lesions within the liver. These may warrant further evaluation if not a known finding These critical finding of pulmonary embolus was discussed personally by phone with, and an understanding was acknowledged by, Dr. HÉCTOR BEARD on 08/17/2020 11:37 PM CDT. Assessment & Plan - Diagnosis (1) Pulmonary embolism, bilateral Is this a current diagnosis for this admission?: Yes Plan: Patient have a second episode of the pulmonary embolism the first 1 in 2008 con tinues to Heparin drip follow-up with the coat checker Patient is currently hemodynamically stable (2) Elevated troponin Is this a current diagnosis for this admission?: Yes Plan: Most likely due to the right-sided heart strain will get the echocardiogram consult the cardiology (3) Lesion of liver Is this a current diagnosis for this admission?: Yes Plan: We will follow-up with the coat checker and oncologist with the history of the colon cancer patient recent colonoscopy was done couple of years back but sigmoidoscopy was done last year and remove the large rectal polyp (4) Chest pain Qualifiers: Chest pain type: unspecified Qualified Code(s): R07.9 - Chest pain, unspecified Is this a current diagnosis for this admission?: Yes Plan: Due to the above conditions (5) Dyspnea on exertion Is this a current diagnosis for this admission?: Yes Plan: Due to the pulmonary embolisms currently on heparin drip (6) HLD (hyperlipidemia) Qualifiers: Hyperlipidemia type: unspecified Qualified Code(s): E78.5 - Hyperlipidemia, unspecified Is this a current diagnosis for this admission?: Yes (7) Colon cancer Qualifiers: Colon location: unspecified part of colon Qualified Code(s): C18.9 - Garry alvarado neoplasm of colon, unspecified Is this a current diagnosis for this admission?: Yes Plan: Status post colon resections currently follow with [facility] (8) Essential hypertension Is this a current diagnosis for this admission?: Yes Plan: Continues to current medications - Time Time Spent: 50 to 70 Minutes Medications reviewed and adjusted accordingly: Yes Anticipated Discharge Disposition: Home with Home Health Anticipated Discharge Timeframe: within 72 hours - Inpatient Certification Based on my medical assessment, after consideration of the patient's comorbidities, presenting symptoms, or acuity I expect that the services needed warrant INPATIENT care.: Yes I certify that my determination is in accordance with my understanding of Medicare's requirements for reasonable and necessary INPATIENT services [42 CFR 412.3e].: Yes Medical Necessity: Significant Comorbidiites Make Outpatient Treatment Too Risky, Need Close Monitoring Due to Risk of Patient Decompensation, Need For IV Fluids Post Hospital Care: D/C Music Typographer Documentation - Plan Summary Plan Summary: Discussed with the patient regarding the all the test results discussed with the other gift consultant continues to current medical management patient is currently hemodynamically very stable
[2020-08-18] MEDS: NORMAL SALINE 1000 ML 1,000 ML IV PRN ×2 (09:00→18:41)
--- NOTE | 2020-08-18 09:10 | PDOC CONSULTATION ---
Consultation Consult Date: 08/18/20 Provider Consulted: PADMAJA CHUNG Consult reason:: Hematology/Oncology consultation was requested for patient with new PE and possible liver mass. History of Present Illness Admission Date/PCP: 08/18/20 01:21 VENKATA TORRES PA-C History of Present Illness: YUE MARTINEZ is a 75 year old female who quit smoking in 1996, but states that she has chronic dyspnea and chest pain. She sees Dr. Daniel for her heart. She had a sudden flash of heat across her chest with pain and progressive dyspnea. She took NTG and presented to the ED. She was initially ruled out for DE, but returned due to progressive symptoms. She was found to have bilateral PEs. She states that she had prior PE after knee surgery some years ago. She was on coumadin briefly, but none for quite some time. She was also found to have liver masses in the past and states that these have been evaluated in the past and she was told they were benign. Today, she has many questions and asks how long she will need to be in the hospital. Past Medical History Cardiac Medical History: Reports: Hyperlipidema, Hypertension, Pulmonary Embolism Denies: Coronary Artery Disease, Myocardial Infarction Pulmonary Medical History: Reports: Pneumonia - 2008 Denies: Asthma, Bronchitis, Chronic Obstructive Pulmonary Disease (COPD) Neurological Medical History: Denies: Seizures Malignancy Medical History: Reports: Colorectal Cancer GI Medical History: Denies: Hepatitis, Hiatal Hernia Musculoskeltal Medical History: Reports: Arthritis - hip left Psychiatric Medical History: Denies: Depression Hematology: Denies: Anemia - TEENAGER, Sickle Cell Disease Past Surgical History Past Surgical History: Reports: Herniorrhaphy, Hysterectomy, Knee Replacement, Orthopedic Surgery - right knee replacement, Tonsillectomy, Other - colon resection for cancer. Colonoscopy within the last month without CA Denies: Amputation, Mastectomy, Pacemaker Social History Smoking Status: Former Smoker Cigarettes Packs Per Day: 20 Electronic Cigarette use?: No Number of Years Smokin Last Time Smoked: 11/08/1996 Frequency of Alcohol Use: None Hx Recreational Drug Use: No Drugs: None Hx Prescription Drug Abuse: No Past Social History Note: . Lives alone. No children. Family History Parental Family History Reviewed: Yes - Father 84. Grandparents on both sides leukemia. MatUnc ThroatCA Children Family History Reviewed: NA Sibling(s) Family History Reviewed.: Yes - Sister age 23 with DE and CVA Medication/Allergy Home Medications: Aspirin [Aspirin 81 mg Chewable Tablet] 81 mg PO DAILY 06/03/14 Potassium Chloride [Klor-Con 10 Meq Tablet ER] 10 meq PO DAILY 06/03/14 Simvastatin 40 mg PO QPM 06/03/17 Tramadol HCl 50 mg PO Q8HP PRN 06/03/17 Zolpidem Tartrate [Ambien 5 mg Tablet] 5 mg PO HSP PRN 02/14/19 Losartan/Hydrochlorothiazide [Hyzaar 50-12.5 Tablet] 1 tab PO DAILY 08/14/20 Nitroglycerin [Nitrostat 0.4 mg (1/150 Gr) Tabs 25/Bottle] 1 tab SL Q5MP PRN #1 bottle 08/15/20 Allergies/Adverse Reactions: No Known Allergies Allergy (Verified 03/09/19 11:45) Review of Systems Constitutional: ABSENT: fever(s), headache(s) Eyes: ABSENT: visual disturbances Ears: ABSENT: hearing changes Nose, Mouth, and Throat: ABSENT: sore throat Cardiovascular: PRESENT: chest pain Respiratory: PRESENT: dyspnea Gastrointestinal: ABSENT: constipation, nausea Genitourinary: ABSENT: dysuria Musculoskeletal: ABSENT: back pain Integumentary: ABSENT: rash Neurological: ABSENT: confusion, dizziness, weakness Hematologic/Lymphatic: ABSENT: easy bleeding Physical Exam Vital Signs: Temp Pulse Resp BP Pulse Ox 97.9 F 71 18 125/71 93 08/18/20 08:16 08/18/20 08:16 08/18/20 08:16 08/18/20 08:16 08/18/20 08:16 Intake & Output 08/17/20 08/18/20 08/19/20 06:59 06:59 06:59 Intake Total 43 Output Total 300 Balance -257 Weight 112.6 kg General appearance: PRESENT: no acute distress, obese Exam: 75 year old female. Head exam: PRESENT: atraumatic, normocephalic Eye exam: PRESENT: EOMI Mouth exam: PRESENT: moist Neck exam: ABSENT: lymphadenopathy, tenderness Respiratory exam: PRESENT: clear to auscultation nathan, unlabored Cardiovascular exam: PRESENT: RRR GI/Abdominal exam: PRESENT: soft. ABSENT: organolmegaly, tenderness Extremities exam: ABSENT: pedal edema Musculoskeletal exam: PRESENT: normal inspection Neurological exam: PRESENT: alert, awake, oriented to person, oriented to place, oriented to time, oriented to situation Psychiatric exam: PRESENT: appropriate affect Skin exam: PRESENT: normal color Results Laboratory Results: 08/17/20 21:58 08/17/20 21:58 08/17/20 08/17/20 08/18/20 21:58 21:58 00:45 WBC 7.0 RBC 4.22 Hgb 12.8 Hct 36.9 MCV 88 MCH 30.4 MCHC 34.7 RDW 14.1 H Plt Count 203 Seg Neutrophils % 76.1 Sodium 139.9 Potassium 3.8 Chloride 105 Carbon Dioxide 24 Anion Gap 11 BUN 34 H Creatinine 1.05 Est GFR ( Amer) > 60 Glucose 123 H Calcium 9.2 Total Bilirubin 0.7 AST 22 Alkaline Phosphatase 86 Total Protein 6.3 Albumin 3.8 TSH 2.22 Free T4 1.27 Urine Color Urine Appearance Urine pH Ur Specific [place] Urine Protein Urine Glucose (UA) Urine Ketones Urine Blood Urine Nitrite Ur Leukocyte Esterase Urine WBC (Auto) Urine RBC (Auto) 08/18/20 08/18/20 00:57 05:52 WBC RBC Hgb Hct MCV MCH MCHC RDW Plt Count Seg Neutrophils % Sodium Potassium Chloride Carbon Dioxide Anion Gap BUN Creatinine Est GFR ( Amer) Glucose Calcium Total Bilirubin AST Alkaline Phosphatase Total Protein Albumin TSH Free T4 Urine Color YELLOW YELLOW Urine Appearance CLOUDY CLEAR Urine pH 5.0 5.0 Ur Specific [place] > 1.060 1.060 Urine Protein NEGATIVE NEGATIVE Urine Glucose (UA) NEGATIVE NEGATIVE Urine Ketones NEGATIVE NEGATIVE Urine Blood NEGATIVE NEGATIVE Urine Nitrite NEGATIVE Ur Leukocyte Esterase LARGE H Urine WBC (Auto) 48 Urine RBC (Auto) 12 2 08/17/20 08/17/20 08/18/20 21:58 21:58 00:45 Creatine Kinase 56 CK-MB (CK-2) 1.29 Troponin I 0.142 0.288 Impressions: Chest X-Ray 08/17/20 21:40 IMPRESSION: There are no acute lung parenchymal findings. Chest/Abdomen CTA 08/17/20 23:26 IMPRESSION: Bilateral pulmonary emboli. This a moderate thrombus burden, as we discussed. There is evidence of right heart strain. The lungs are grossly clear. Indeterminate lesions within the liver. These may warrant further evaluation if not a known finding These critical finding of pulmonary embolus was discussed personally by phone with, and an understanding was acknowledged by, Dr. HÉCTOR BEARD on 08/17/2020 11:37 PM CDT. Status: Image reviewed by me Assessment & Plan - Diagnosis (1) Lesion of liver Is this a current diagnosis for this admission?: Yes Plan: These have been evaluated in the past and were thought to be benign. I will ask radiologist to compare current films to previous and make recommendation as to further work-up. (2) Pulmonary embolism, bilateral Is this a current diagnosis for this admission?: Yes Plan: This is her second bout with PE. Therefore, I would recommend lifelong anticoagulation. She is currently on heparin drip. However, if cardiology and radiology both agree that no interventions are necessary, then would switch to a new agent for home use. I will be happy to follow her as outpatient if needed. (3) Colon cancer Qualifiers: Colon location: unspecified part of colon Qualified Code(s): C18.9 - Malignant neoplasm of colon, unspecified Is this a current diagnosis for this admission?: No Plan: There is remote history of this, but recent colonoscopy was negative. May c onsider checking CEA as outpatient after she has stabilized. If liver lesions are now suspicious for mets, then biopsy would be advised. - Plan Summary Plan Summary: Patient was discussed with Dr. Ordonez.
[2020-08-18] MEDS ORDERED: TRAMADOL HCL 50 MG TABLET PO PRN (12:44)
[2020-08-18] MEDS: SIMVASTATIN 40 MG TABLET PO SCH (18:40)
--- NOTE | 2020-08-18 20:12 | XCELERA REPORT ---
[address] [address] Transthoracic Echocardiogram Report Name: YUE MARTINEZ Age: 75 yrs Gender: Female : 1945 Patient Status: [facility] Study Date: 08/18/2020 10:53 AM Height: 65 in Weight: 248 lb BSA: 2.2 m2 Procedure: A two-dimensional transthoracic echocardiogram with color flow and Doppler was performed. Study Quality: Fair. Reason For Study: elevated troponin/chest pain History: elevated troponin/chest pain. Ordering Physician: AMANDA MICHAUD Performed By: Suzette Ny Interpretation Summary The left ventricle is normal in size. There is normal left ventricular wall thickness. LV EF is 65% Left ventricular systolic function is normal. Doppler measurements suggest impaired left ventricular relaxation, which is associated with grade I/IV or mild diastolic dysfunction The left ventricular wall motion is normal. There is no thrombus. No ASD,VSD,or PFO seen. The right ventricle is moderately dilated. There is mild right ventricular hypertrophy. The right ventricular systolic function is mildly reduced. Probable small adherent mural thrombus on the RV free wall. The right atrium is normal. The left atrial size is normal. There is no evidence of mitral valve prolapse. There is no vegetation seen on the mitral valve. There is a trace amount of mitral regurgitation There is no tricuspid stenosis. There is a mild to moderate amount of tricuspid regurgitation There is moderate pulmonary hypertension by echo RVSP is 52 to 57 mm of Hg , with RA mean of 5 to 10. There is no pulmonic valvular stenosis. There is a trace amount of pulmonic regurgitation The aortic root is normal size. The inferior vena cava appeared normal and decreased > 50% with respiration (RAP 5-10 mmHg) There is no pericardial effusion. MMode/2D Measurements & Calculations RVDd: 4.3 cm LVIDd: 3.4 cm FS: 32.6 % Ao root diam: 3.0 cm IVSd: 1.1 cm LVIDs: 2.3 cm EDV(Teich): 48.6 ml Ao root area: 7.2 cm2 LVPWd: 1.1 cm ESV(Teich): 18.4 ml LA dimension: 3.3 cm EF(Teich): 62.1 % Doppler Measurements & Calculations MV E max allan: MV P1/2t max allan: Ao V2 max: LV V1 max P.0 cm/sec 76.0 cm/sec 155.7 cm/sec 4.1 mmHg MV A max allan: MV P1/2t: 102.0 msec Ao max PG: LV V1 max: 111.6 cm/sec MVA(P1/2t): 2.2 cm2 9.7 mmHg 101.7 cm/sec MV E/A: 0.67 MV dec slope: 218.2 cm/sec2 MV dec time: 0.36 sec PA V2 max: PI end-d allan: TR max allan: MV P1/2t-pr_phl: 101.7 cm/sec 126.2 cm/sec 343.4 cm/sec 102.0 msec PA max P.1 mmHg TR max P.2 mmHg Left Ventricle The left ventricle is normal in size. There is normal left ventricular wall thickness. LV EF is 65%. Left ventricular systolic function is normal. Doppler measurements suggest impaired left ventricular relaxation, which is associated with grade I/IV or mild diastolic dysfunction. The left ventricular wall motion is normal. There is no thrombus. No ASD,VSD,or PFO seen. Right Ventricle The right ventricle is moderately dilated. There is mild right ventricular hypertrophy. The right ventricular systolic function is mildly reduced. Probable small adherent mural thrombus on the RV free wall. Atria The right atrium is normal. The left atrial size is normal. Mitral Valve There is no evidence of mitral valve prolapse. There is no vegetation seen on the mitral valve. There is no mitral valve stenosis. There is a trace amount of mitral regurgitation. Tricuspid Valve There is no tricuspid stenosis. There is a mild to moderate amount of tricuspid regurgitation. There is moderate pulmonary hypertension by echo. RVSP is 52 to 57 mm of Hg , with RA mean of 5 to 10. Pulmonic Valve There is no pulmonic valvular stenosis. There is a trace amount of pulmonic regurgitation. Great Vessels The aortic root is normal size. The inferior vena cava appeared normal and decreased > 50% with respiration (RAP 5-10 mmHg). Effusions There is no pericardial effusion. : AMANDA MICHAUD Lakshmi
[2020-08-18] MEDS: ZOLPIDEM TARTRATE 5 MG TABLET PO PRN (22:45)
[2020-08-19 05:06] LABS: ABSOLUTE EOSINOPHILS # (AUTO) 0.1 10^3/uL (0.0-0.6); ABSOLUTE LYMPHOCYTES (AUTO) 1.2 10^3/uL (0.5-4.7); ABSOLUTE MONOCYTES (AUTO) 0.4 10^3/uL (0.1-1.4); ABSOLUTE NEUT (AUTO) 3.1 10^3/uL (1.7-8.2); BASOPHILS % (AUTO) 0.5 % (0-2); EOSINOPHILS % (AUTO) 2.2 % (0-6); HEMATOCRIT 32.3 % (36.0-47.0); HEMOGLOBIN 11.4 g/dL (12.0-15.5); LYMPHOCYTES % (AUTO) 24.9 % (13-45); MEAN CORPUSCULAR HEMOGLOBIN 30.7 pg (27.0-33.4); MEAN CORPUSCULAR HGB CONC 35.2 g/dL (32.0-36.0); MEAN CORPUSCULAR VOLUME 87 fl (80-97); MONOCYTES % (AUTO) 8.9 % (3-13); PLATELET COUNT 157 10^3/uL (150-450); RED CELL DISTRIBUTION WIDTH 13.8 % (11.5-14.0); SEGMENTED NEUTROPHILS % (AUTO) 63.5 % (42-78); TOTAL CELLS COUNTED % (AUTO) 100 %; WHITE BLOOD COUNT 4.8 10^3/uL (4.0-10.5)
[2020-08-19 05:43] LABS: ALBUMIN 3.2 g/dL (3.5-5.0); CARBON DIOXIDE 25 mmol/L (22-30); TOTAL PROTEIN 5.5 g/dL (6.3-8.2)
[2020-08-19 06:02] LABS: ALKALINE PHOSPHATASE 82 U/L (38-126); ANION GAP 9 (5-19); ASPARTATE AMINO TRANSFERASE 20 U/L (14-36); BILIRUBIN,DIRECT 0.3 mg/dL (0.0-0.4); BILIRUBIN,TOTAL 0.7 mg/dL (0.2-1.3); BLOOD UREA NITROGEN 19 mg/dL (7-20); CALCIUM 8.6 mg/dL (8.4-10.2); CHLORIDE 106 mmol/L (98-107); GLUCOSE 96 mg/dL (75-110); POTASSIUM 3.3 mmol/L (3.6-5.0)
[2020-08-19] MEDS ORDERED: POTASSIUM CHLORIDE 10 MEQ TABLET.ER PO ONE ×2 (06:15→10:00)
[2020-08-19] MEDS ORDERED: INFLUENZA QUAD (6MOS+) 2020-21 VAC 0.5 ML SYR IM ONE (08:00)
--- NOTE | 2020-08-19 08:14 | PDOC PROGRESS REPORT ---
Subjective Progress Note for:: 08/19/20 Subjective:: Patient is feeling much better according to the patient she felt like 3 months back she was feeling Patient's denied any chest pain no short of breath She is walking the hallway without any problems Discussed with the Dr. Morales she will change Heparin to the oral ant icoagulations Discussed with the patient about the precaution of the oral anticoagulations including the fall bleeding understand very well and patients probably need a lifelong medications due to the second episode of the PE As per discussed with the the liver lesion was put much benign as per review the radiology report Reason For Visit: BILATERAL PE Physical Exam Vital Signs: Temp Pulse Resp BP Pulse Ox 98.1 F 66 18 134/50 H 91 L 08/19/20 04:46 08/19/20 04:46 08/19/20 04:46 08/19/20 04:46 08/19/20 04:46 Intake & Output 08/18/20 08/19/20 08/20/20 06:59 06:59 06:59 Intake Total 43 1618 Output Total 300 1600 Balance -257 18 Weight 112.6 kg 114.7 kg General appearance: PRESENT: no acute distress, well-developed, well-nourished Head exam: PRESENT: atraumatic, normocephalic Eye exam: PRESENT: conjunctiva pink, EOMI, PERRLA. ABSENT: scleral icterus Ear exam: PRESENT: normal external ear exam Mouth exam: PRESENT: moist, tongue midline Neck exam: PRESENT: full ROM. ABSENT: carotid bruit, JVD, lymphadenopathy, thyromegaly Respiratory exam: PRESENT: clear to auscultation nathan Cardiovascular exam: PRESENT: RRR. ABSENT: diastolic murmur, rubs, systolic murmur Pulses: PRESENT: normal dorsalis pedis pul, +2 pedal pulses bilateral Vascular exam: PRESENT: normal capillary refill GI/Abdominal exam: PRESENT: normal bowel sounds, soft. ABSENT: distended, guarding, mass, organolmegaly, rebound, tenderness Rectal exam: PRESENT: deferred Musculoskeletal exam: PRESENT: ambulatory Neurological exam: PRESENT: alert, awake, oriented to person, oriented to place, oriented to time, oriented to situation, CN II-XII grossly intact. ABSENT: motor sensory deficit Psychiatric exam: PRESENT: appropriate affect, normal mood. ABSENT: homicidal ideation, suicidal ideation Skin exam: PRESENT: dry, intact, warm. ABSENT: cyanosis, rash Results Laboratory Results: 08/19/20 04:50 08/19/20 04:50 08/19/20 08/19/20 04:50 04:50 WBC 4.8 RBC 3.70 L Hgb 11.4 L Hct 32.3 L MCV 87 MCH 30.7 MCHC 35.2 RDW 13.8 Plt Count 157 Seg Neutrophils % 63.5 Sodium 139.7 Potassium 3.3 L Chloride 106 Carbon Dioxide 25 Anion Gap 9 BUN 19 Creatinine 0.96 Est GFR ( Amer) > 60 Glucose 96 Calcium 8.6 Total Bilirubin 0.7 AST 20 Alkaline Phosphatase 82 Total Protein 5.5 L Albumin 3.2 L 08/17/20 08/17/20 08/18/20 21:58 21:58 00:45 Creatine Kinase 56 CK-MB (CK-2) 1.29 Troponin I 0.142 0.288 Impressions: Chest X-Ray 08/17/20 21:40 IMPRESSION: There are no acute lung parenchymal findings. Chest/Abdomen CTA 08/17/20 23:26 IMPRESSION: Bilateral pulmonary emboli. This a moderate thrombus burden, as we discussed. There is evidence of right heart strain. The lungs are grossly clear. Indeterminate lesions within the liver. These may warrant further evaluation if not a known finding These critical finding of pulmonary embolus was discussed personally by phone with, and an understanding was acknowledged by, Dr. HÉCTOR BEARD on 08/17/2020 11:37 PM CDT. Assessment & Plan - Diagnosis (1) Pulmonary embolism, bilateral Is this a current diagnosis for this admission?: Yes Plan: Continues the oral anticoagulations patient is remained stable next 24 hours hopefully discharge the patient (2) Elevated troponin Is this a current diagnosis for this admission?: Yes Plan: Review the echocardiogram is all stable follow-up with Dr. Ordoñez (3) Lesion of liver Is this a current diagnosis for this admission?: Yes Plan: As per discussed with oncologist and radiology benign lesion (4) Chest pain Qualifiers: Chest pain type: unspecified Qualified Code(s): R07.9 - Chest pain, unspecified Is this a current diagnosis for this admission?: Yes Plan: Currently all resolved (5) Dyspnea on exertion Is this a current diagnosis for this admission?: Yes Plan: Currently all resolved (6) HLD (hyperlipidemia) Qualifiers: Hyperlipidemia type: unspecified Qualified Code(s): E78.5 - Hyperlipidemia, unspecified Is this a current diagnosis for this admission?: Yes (7) Colon cancer Qualifiers: Colon location: unspecified part of colon Qualified Code(s): C18.9 - Malignant neoplasm of colon, unspecified Is this a current diagnosis for this admission?: No (8) Essential hypertension Is this a current diagnosis for this admission?: Yes - Time Time Spent with patient: 15-24 minutes Level of Care: IMCU Medications reviewed and adjusted accordingly: Yes Anticipated discharge: Home Anticipated DC Timeframe: within 24 hours - Plan Summary Plan Summary: Continues the current medications
--- NOTE | 2020-08-19 08:31 | PDOC PROGRESS REPORT ---
Subjective Progress Note for:: 08/19/20 Subjective:: Patient feeling much better today. She states that she feels better than she did 2 months ago. She was amazed yesterday to see her heart on the ECHO for the first time. She is motivated to take good care of herself and take her medications as prescribed. No new complaints today. She is excited to go home tomorrow. She states she has been up walking around her room. She denies any pain or dsypnea. Reason For Visit: BILATERAL PE Physical Exam Vital Signs: Temp Pulse Resp BP Pulse Ox 98.1 F 66 18 134/50 H 91 L 08/19/20 04:46 08/19/20 04:46 08/19/20 04:46 08/19/20 04:46 08/19/20 04:46 Intake & Output 08/18/20 08/19/20 08/20/20 06:59 06:59 06:59 Intake Total 43 1618 Output Total 300 1600 Balance -257 18 Weight 112.6 kg 114.7 kg General appearance: PRESENT: no acute distress, obese Head exam: PRESENT: normocephalic Respiratory exam: PRESENT: unlabored Musculoskeletal exam: PRESENT: normal inspection Neurological exam: PRESENT: alert, awake Skin exam: PRESENT: normal color Results Laboratory Results: 08/19/20 04:50 08/19/20 04:50 08/19/20 08/19/20 04:50 04:50 WBC 4.8 RBC 3.70 L Hgb 11.4 L Hct 32.3 L MCV 87 MCH 30.7 MCHC 35.2 RDW 13.8 Plt Count 157 Seg Neutrophils % 63.5 Sodium 139.7 Potassium 3.3 L Chloride 106 Carbon Dioxide 25 Anion Gap 9 BUN 19 Creatinine 0.96 Est GFR ( Amer) > 60 Glucose 96 Calcium 8.6 Total Bilirubin 0.7 AST 20 Alkaline Phosphatase 82 Total Protein 5.5 L Albumin 3.2 L 08/17/20 08/17/20 08/18/20 21:58 21:58 00:45 Creatine Kinase 56 CK-MB (CK-2) 1.29 Troponin I 0.142 0.288 Impressions: Chest X-Ray 08/17/20 21:40 IMPRESSION: There are no acute lung parenchymal findings. Chest/Abdomen CTA 08/17/20 23:26 IMPRESSION: Bilateral pulmonary emboli. This a moderate thrombus burden, as we discussed. There is evidence of right heart strain. The lungs are grossly clear. Indeterminate lesions within the liver. These may warrant further evaluation if not a known finding These critical finding of pulmonary embolus was discussed personally by phone with, and an understanding was acknowledged by, Dr. HÉCTOR BEARD on 08/17/2020 11:37 PM CDT. Assessment & Plan - Diagnosis (1) Lesion of liver Is this a current diagnosis for this admission?: Yes Plan: Reviewed by radiologist. Thought to be hemangiomas and benign. No further work-up recommended. (2) Pulmonary embolism, bilateral Is this a current diagnosis for this admission?: Yes Plan: Discussed with Dr. Ordonez. I will start Xarelto 15 mg po BID x 21 days then change to 20 mg po daily. I have encouraged patient to verify with her pharmacy that medication is available prior to discharge. (3) Colon cancer Qualifiers: Colon location: unspecified part of colon Qualified Code(s): C18.9 - Malignant neoplasm of colon, unspecified Is this a current diagnosis for this admission?: No Plan: No evidence of disease for >5 years. Recent colonoscopy was negative. I am happy to follow her in the office for this. - Time Time Spent with patient: 15-24 minutes - Plan Summary Plan Summary: Agree with plans for discharge tomorrow. I have ordered the xarelto and heparin drip will stop 1 hours after Xarelto has been given. I will sign off and follow her as outpatient. Please call if any other questions or concerns.
[2020-08-19] MEDS: RIVAROXABAN 15 MG TABLET PO SCH ×2 (09:55→17:16)
--- NOTE | 2020-08-19 15:15 | PDOC CONSULTATION ---
Consultation-Blank Consultation: CARDIOLOGY CONSULTATION by Dr. Ludy Barbosa on 08/19/2020. Patient seen at 3 PM. 60 minutes spent as patient more than 50% time spent in direct patient care. CONSULT REQUESTING PHYSICIAN: Dr. Ordonez REASON FOR CONSULTATION: Elevated troponin I assess etiology. 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 She has been treated with heparin and subsequently is on oral anticoagulation. She feels much better. Of note although she has no anginal symptoms her troponin os was elevated slightly. This is secondary to supply demand mismatch due to pulmonary embolism. No definite evidence of non-ST elevation MA or acute coronary syndrome. But the patient has multiple CAD risk factors, and hence as an outpatient would recommend that the patient have IV Lexiscan Cardiolite stress test. The patient denies past history of coronary artery disease or MA or angina or myocardial infarction. There is no history of congestive heart failure. There is no history of diabetes mellitus. Although she is obese there is no history of sleep apnea. She quit smoking 27 years ago. There is no history of TIA CVA. This is a second episode of pulmonary embolism on this patient. Past Medical History Cardiac Medical History: Reports: Hyperlipidema, Hypertension, Pulmonary Embolism Denies: Coronary Artery Disease, Myocardial Infarction Pulmonary Medical History: Reports: Pneumonia - 2008 Denies: Asthma, Bronchitis, Chronic Obstructive Pulmonary Disease (COPD) Neurological Medical History: Denies: Seizures Malignancy Medical History: Reports: Colorectal Cancer GI Medical History: Denies: Hepatitis, Hiatal Hernia Musculoskeltal Medical History: Reports: Arthritis - hip left Psychiatric Medical History: Denies: Depression Hematology: Denies: Anemia - TEENAGER, Sickle Cell Disease Past Surgical History Past Surgical History: Reports: Herniorrhaphy, Hysterectomy, Knee Replacement, Orthopedic Surgery - right knee replacement, Tonsillectomy, Other - colon resection for cancer Denies: Amputation, Mastectomy, Pacemaker Social History Information Source: Patient Smoking Status: Never Smoker Electronic Cigarette use?: No Frequency of Alcohol Use: None Hx Recreational Drug Use: No Drugs: None Hx Prescription Drug Abuse: No RESUSCITATION STATUS: The patient is a full code. Her brother is a surrogate healthcare decision maker. Family History Family History: Reviewed & Not Pertinent, Hypertension Parental Family History Reviewed: Yes Children Family History Reviewed: Yes Sibling(s) Family History Reviewed.: Yes Medication/Allergy Home Medications: Aspirin [Aspirin 81 mg Chewable Tablet] 81 mg PO DAILY 06/03/14 Potassium Chloride [Klor-Con 10 Meq Tablet ER] 10 meq PO DAILY 06/03/14 Simvastatin 40 mg PO QPM 06/03/17 Tramadol HCl 50 mg PO Q8HP PRN 06/03/17 Zolpidem Tartrate [Ambien 5 mg Tablet] 5 mg PO HSP PRN 02/14/19 Losartan/Hydrochlorothiazide [Hyzaar 50-12.5 Tablet] 1 tab PO DAILY 08/14/20 Nitroglycerin [Nitrostat 0.4 mg (1/150 Gr) Tabs 25/Bottle] 1 tab SL Q5MP PRN #1 bottle 08/15/20 Allergies/Adverse Reactions: No Known Allergies Allergy (Verified 03/09/19 11:45) Current Medications Generic Name Dose Route Start Last Admin Trade Name Freq PRN Reason Stop Dose Admin Rivaroxaban 15 mg 08/19/20 10:00 08/19/20 17:16 Xarelto 15 Mg Tablet PO 09/10/20 09:59 15 mg BIDBS AARTI Administration Simvastatin 40 mg 08/18/20 18:00 08/19/20 17:16 Zocor 40 Mg Tablet PO 09/17/20 17:59 40 mg QPM AARTI Administration Tramadol HCl 50 mg 08/18/20 12:44 Ultram 50 Mg Tablet PO 08/25/20 12:43 Q8HP PRN FOR PAIN Zolpidem Tartrate 5 mg 08/18/20 12:44 08/19/20 20:46 Ambien 5 Mg Tablet PO 08/25/20 12:43 5 mg HSP PRN Administration SLEEP OR INSOMNIA Discontinued Medications Generic Name Dose Route Start Last Admin Trade Name Freq PRN Reason Stop Dose Admin Aspirin 162 mg 08/17/20 21:41 08/17/20 22:01 Aspirin 81 Mg Chewable Tablet PO 08/17/20 21:42 162 mg NOW ONE Administration Heparin Sodium (Porcine) 9,000 unit 08/18/20 00:17 08/18/20 00:33 Heparin Inj 1,000 Unit/Ml 10 Ml Vial 80 unit/kg (9000 unit) 08/18/20 00:18 9,000 unit IV Administration NOW ONE Heparin Sodium (Porcine) 0 - 15,000 unit 08/18/20 03:18 Heparin Inj 1,000 Unit/Ml 10 Ml Vial IV 08/19/20 11:59 .BOLUS PER PROTOCOL PRN RESPOND TO aPTT VALUE Protocol Heparin Sodium/Dextrose 25,000 unit in 250 mls @ 0 mls/hr 08/18/20 00:17 08/19/20 11:08 Heparin Rtu 25,000 Unit/250 Ml D5w Premix IV 08/19/20 11:59 Infused CONTINUOUS PRN Titration THIS MED IS NOT "PRN" Protocol Titrate Sodium Chloride 1,000 mls @ 100 mls/hr 08/18/20 04:18 08/18/20 04:52 Nacl 0.9% 1000 Ml Iv Soln IV 09/17/20 04:17 100 mls/hr CONTINUOUS PRN Administration THIS MED IS NOT "PRN" Sodium Chloride 1,000 mls @ 70 mls/hr 08/18/20 08:09 08/18/20 18:41 Nacl 0.9% 1000 Ml Iv Soln IV 09/17/20 04:17 70 mls/hr CONTINUOUS PRN Administration THIS MED IS NOT "PRN" Influenza Virus Vaccine Quadrival 0.5 ml 08/19/20 08:00 Flulaval Quad 2020-21 Vac 0.5 Ml Syr IM 08/19/20 08:01 .ONCE ONE Nitroglycerin 1 gm 08/17/20 23:26 08/17/20 23:41 Nitrol 2% Ointment 1gm Packet TP 08/17/20 23:27 1 gm NOW ONE Administration Potassium Chloride 40 meq 08/19/20 06:15 08/19/20 14:59 Klor-Con 10 Meq Tablet Er PO 08/19/20 06:16 Not Given NOW ONE Potassium Chloride 40 meq 08/19/20 10:00 08/19/20 11:07 Klor-Con 10 Meq Tablet Er PO 08/19/20 10:01 40 meq NOW ONE Administration Review of Systems Constitutional: ABSENT: chills, fever(s), headache(s), weight gain, weight loss Eyes: ABSENT: visual disturbances Ears: ABSENT: hearing changes Cardiovascular: PRESENT: chest pain. ABSENT: dyspnea on exertion, edema, orthropnea, palpitations Respiratory: ABSENT: cough, hemoptysis Gastrointestinal: ABSENT: abdominal pain, constipation, diarrhea, hematemesis, hematochezia, nausea, vomiting Genitourinary: ABSENT: dysuria, hematuria Musculoskeletal: ABSENT: joint swelling Integumentary: ABSENT: rash, wounds Neurological: ABSENT: abnormal gait, abnormal speech, confusion, dizziness, focal weakness, syncope Psychiatric: ABSENT: anxiety, depression, homidical ideation, suicidal ideation Endocrine: ABSENT: cold intolerance, heat intolerance, menstrual abnormalities, polydipsia, polyuria Hematologic/Lymphatic: ABSENT: easy bleeding, easy bruising, lymphadenopathy PHYSICAL EXAMINATION: The patient is morbidly obese. In no acute distress. She is well-groomed. Selected Entries 08/19/20 15:29 Temperature 98.0 F Temperature Oral Source Pulse Rate 71 Respiratory 15 Rate Blood Pressure 142/71 H Blood Pressure 94 Mean BP Location Left Arm BP Position Sitting O2 Sat by Pulse 98 Oximetry Oxygen Delivery Room Air Method HEAD: Is atraumatic normocephalic. EYES: Pupils are equal round regular reactive light accommodation. Extraocular movements are normal. There is no conjunctival pallor. There is no scleral icterus. EARS: Tympanic membranes are intact. External auditory canals are clear. NOSE: There is no deviated nasal septum. There is no inflammation of the nasal mucous membrane. MOUTH: Mucous membranes of mouth are moist. Tongue is moist. There is no ulcers. THROAT: There is no redness of the oropharynx. There is no exudates. SKIN: There is no skin rashes. There is no skin lesions. There is no petechia or ecchymosis. NECK: Supple. There is no JVD. Carotids are equal there is no bruit. There is no lymphadenopathy. There is no goiter. There is no accessory muscles of respiration use. Trachea central. LUNGS: Is clear to auscultation percussion without any rhonchi rales or wheezing. HEART: S1-S2 is heard. There is no S3 gallop. There is no S4 gallop. There is systolic murmur left sternal border and the apex there is no rub. Active abdomen: Is soft. Nontender. There is no hepatosplenomegaly. Bowel sounds are well heard. There is no change areas masses. EXTREMITIES: Femorals are deep. Femorals are slightly diminished. Leg pulses are well felt. There is no pedal edema. There is no DVT or cellulitis. There is no calf tenderness. 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 PSYCHIATRIC: The patient judgment insight are intact and affect is normal. Labs- Entire Visit 08/17/20 08/17/20 08/17/20 21:58 21:58 21:58 WBC 7.0 RBC 4.22 Hgb 12.8 Hct 36.9 MCV 88 MCH 30.4 MCHC 34.7 RDW 14.1 H Plt Count 203 Lymph % (Auto) 12.1 L [place] % (Auto) 10.0 Eos % (Auto) 1.2 Baso % (Auto) 0.6 Absolute Neuts (auto) 5.3 Absolute Lymphs (auto) 0.8 Absolute Monos (auto) 0.7 Absolute Eos (auto) 0.1 Absolute Basos (auto) 0.0 Seg Neutrophils % 76.1 PT INR APTT Sodium 139.9 Potassium 3.8 Chloride 105 Carbon Dioxide 24 Anion Gap 11 BUN 34 H Creatinine 1.05 Est GFR ( Amer) > 60 Est GFR (MDRD) Non-Af 51 L Glucose 123 H Calcium 9.2 Total Bilirubin 0.7 Direct Bilirubin 0.4 Neonat Total Bilirubin Not Reportable Neonat Direct Bilirubin Not Reportable Neonat Indirect Bili Not Reportable AST 22 ALT 17 Alkaline Phosphatase 86 Creatine Kinase 56 CK-MB (CK-2) 1.29 Troponin I 0.142 Total Protein 6.3 Albumin 3.8 TSH Free T4 Urine Color Urine Appearance Urine pH Ur Specific [place] Urine Protein Urine Glucose (UA) Urine Ketones Urine Blood Urine Nitrite Urine Nitrite (Reflex) Urine Bilirubin Urine Urobilinogen Ur Leukocyte Esterase Leukocyte Esterase Rfl Urine WBC (Auto) Urine RBC (Auto) Urine Bacteria (Auto) Urine WBC (Reflex) Squamous Epi Cells Auto Urine Mucus (Auto) Urine Ascorbic Acid 08/17/20 08/18/20 08/18/20 21:58 00:45 00:45 WBC RBC Hgb Hct MCV MCH MCHC RDW Plt Count Lymph % (Auto) [place] % (Auto) Eos % (Auto) Baso % (Auto) Absolute Neuts (auto) Absolute Lymphs (auto) Absolute Monos (auto) Absolute Eos (auto) Absolute Basos (auto) Seg Neutrophils % PT 12.7 INR 0.93 APTT 29.4 Sodium Potassium Chloride Carbon Dioxide Anion Gap BUN Creatinine Est GFR ( Amer) Est GFR (MDRD) Non-Af Glucose Calcium Total Bilirubin Direct Bilirubin Neonat Total Bilirubin Neonat Direct Bilirubin Neonat Indirect Bili AST ALT Alkaline Phosphatase Creatine Kinase CK-MB (CK-2) Troponin I 0.288 Total Protein Albumin TSH 2.22 Free T4 1.27 Urine Color Urine Appearance Urine pH Ur Specific [place] Urine Protein Urine Glucose (UA) Urine Ketones Urine Blood Urine Nitrite Urine Nitrite (Reflex) Urine Bilirubin Urine Urobilinogen Ur Leukocyte Esterase Leukocyte Esterase Rfl Urine WBC (Auto) Urine RBC (Auto) Urine Bacteria (Auto) Urine WBC (Reflex) Squamous Epi Cells Auto Urine Mucus (Auto) Urine Ascorbic Acid 08/18/20 08/18/20 08/18/20 00:57 05:52 07:40 WBC RBC Hgb Hct MCV MCH MCHC RDW Plt Count Lymph % (Auto) [place] % (Auto) Eos % (Auto) Baso % (Auto) Absolute Neuts (auto) Absolute Lymphs (auto) Absolute Monos (auto) Absolute Eos (auto) Absolute Basos (auto) Seg Neutrophils % PT INR APTT Cancelled Sodium Potassium Chloride Carbon Dioxide Anion Gap BUN Creatinine Est GFR ( Amer) Est GFR (MDRD) Non-Af Glucose Calcium Total Bilirubin Direct Bilirubin Neonat Total Bilirubin Neonat Direct Bilirubin Neonat Indirect Bili AST ALT Alkaline Phosphatase Creatine Kinase CK-MB (CK-2) Troponin I Total Protein Albumin TSH Free T4 Urine Color YELLOW YELLOW Urine Appearance CLOUDY CLEAR Urine pH 5.0 5.0 Ur Specific [place] > 1.060 1.060 Urine Protein NEGATIVE NEGATIVE Urine Glucose (UA) NEGATIVE NEGATIVE Urine Ketones NEGATIVE NEGATIVE Urine Blood NEGATIVE NEGATIVE Urine Nitrite NEGATIVE Urine Nitrite (Reflex) POSITIVE H Urine Bilirubin NEGATIVE NEGATIVE Urine Urobilinogen NEGATIVE NEGATIVE Ur Leukocyte Esterase LARGE H Leukocyte Esterase Rfl SMALL H Urine WBC (Auto) 48 Urine RBC (Auto) 12 2 Urine Bacteria (Auto) 1+ 2+ Urine WBC (Reflex) 11 Squamous Epi Cells Auto 35 5 Urine Mucus (Auto) RARE OCC Urine Ascorbic Acid NEGATIVE NEGATIVE 08/18/20 08/18/20 08/19/20 09:12 18:36 00:28 WBC RBC Hgb Hct MCV MCH MCHC RDW Plt Count Lymph % (Auto) [place] % (Auto) Eos % (Auto) Baso % (Auto) Absolute Neuts (auto) Absolute Lymphs (auto) Absolute Monos (auto) Absolute Eos (auto) Absolute Basos (auto) Seg Neutrophils % PT INR APTT > 235.0 H* > 235.0 H* 194.7 H* Sodium Potassium Chloride Carbon Dioxide Anion Gap BUN Creatinine Est GFR ( Amer) Est GFR (MDRD) Non-Af Glucose Calcium Total Bilirubin Direct Bilirubin Neonat Total Bilirubin Neonat Direct Bilirubin Neonat Indirect Bili AST ALT Alkaline Phosphatase Creatine Kinase CK-MB (CK-2) Troponin I Total Protein Albumin TSH Free T4 Urine Color Urine Appearance Urine pH Ur Specific [place] Urine Protein Urine Glucose (UA) Urine Ketones Urine Blood Urine Nitrite Urine Nitrite (Reflex) Urine Bilirubin Urine Urobilinogen Ur Leukocyte Esterase Leukocyte Esterase Rfl Urine WBC (Auto) Urine RBC (Auto) Urine Bacteria (Auto) Urine WBC (Reflex) Squamous Epi Cells Auto Urine Mucus (Auto) Urine Ascorbic Acid 08/19/20 08/19/20 08/19/20 04:50 04:50 09:37 WBC 4.8 RBC 3.70 L Hgb 11.4 L Hct 32.3 L MCV 87 MCH 30.7 MCHC 35.2 RDW 13.8 Plt Count 157 Lymph % (Auto) 24.9 [place] % (Auto) 8.9 Eos % (Auto) 2.2 Baso % (Auto) 0.5 Absolute Neuts (auto) 3.1 Absolute Lymphs (auto) 1.2 Absolute Monos (auto) 0.4 Absolute Eos (auto) 0.1 Absolute Basos (auto) 0.0 Seg Neutrophils % 63.5 PT INR APTT 74.5 H Sodium 139.7 Potassium 3.3 L Chloride 106 Carbon Dioxide 25 Anion Gap 9 BUN 19 Creatinine 0.96 Est GFR ( Amer) > 60 Est GFR (MDRD) Non-Af 56 L Glucose 96 Calcium 8.6 Total Bilirubin 0.7 Direct Bilirubin 0.3 Neonat Total Bilirubin Not Reportable Neonat Direct Bilirubin Not Reportable Neonat Indirect Bili Not Reportable AST 20 ALT 15 Alkaline Phosphatase 82 Creatine Kinase CK-MB (CK-2) Troponin I Total Protein 5.5 L Albumin 3.2 L TSH Free T4 Urine Color Urine Appearance Urine pH Ur Specific [place] Urine Protein Urine Glucose (UA) Urine Ketones Urine Blood Urine Nitrite Urine Nitrite (Reflex) Urine Bilirubin Urine Urobilinogen Ur Leukocyte Esterase Leukocyte Esterase Rfl Urine WBC (Auto) Urine RBC (Auto) Urine Bacteria (Auto) Urine WBC (Reflex) Squamous Epi Cells Auto Urine Mucus (Auto) Urine Ascorbic Acid Chest X-Ray 08/17/20 21:40 IMPRESSION: There are no acute lung parenchymal findings. Chest/Abdomen CTA 08/17/20 23:26 IMPRESSION: Bilateral pulmonary emboli. This a moderate thrombus burden, as we discussed. There is evidence of right heart strain. The lungs are grossly clear. Indeterminate lesions within the liver. These may warrant further evaluation if not a known finding These critical finding of pulmonary embolus was discussed personally by phone with, and an understanding was acknowledged by, Dr. HÉCTOR BEARD on 08/17/2020 11:37 PM CDT. EKG: Shows sinus rhythm. Left intrafascicular block. There is no acute ischemia or injury. The patient's echocardiogram shows normal left ventricular chamber size wall motion and ejection fraction. There is enlargement of the right ventricle with moderate pulmonary hypertension. Would recommend repeating the echo in 3 months. Please see report IMPRESSION/RECOMMENDATION: 1. Elevated troponin I with no evidence of angina and no EKG changes. In a patient with acute pulmonary emboli. This is secondary to supply demand mismatch due to pulmonary emboli no evidence of non-ST ovation MA or acute coronary syndrome. 2. Acute pulmonary embolism: Patient now on oral anticoagulation. Since this is a second episode she probably will need lifelong chronic anticoagulation. 3. Hypertension: Blood pressure fairly well controlled. 4. Morbid obesity with a BMI of 42.1 kg/m 5. History of colon cancer: Cured Medications reviewed. Medical regimen management plan discussed with the attending physician on the case. The patient does have multiple CAD risk factors. Would recommend IV Lexiscan Cardiolite stress test as an outpatient. 60 minutes spent as patient with more than 50% of time spent in direct patient care. Medical decision making is of moderate complexity. Will follow.
[2020-08-19] MEDS: SIMVASTATIN 40 MG TABLET PO SCH (17:16)
--- NOTE | 2020-08-19 18:32 | CDI QUERY ---
CDI Query CDI Review: We are seeking further clarification of documentation to reflect the severity of illness of your patient. 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 AURELIANO Chau RN Clinical Ancillary Services Manager Therapy Physician Advisor
[2020-08-19] MEDS: ZOLPIDEM TARTRATE 5 MG TABLET PO PRN (20:46)
[2020-08-20 05:18] LABS: ABSOLUTE EOSINOPHILS # (AUTO) 0.1 10^3/uL (0.0-0.6); ABSOLUTE LYMPHOCYTES (AUTO) 1.2 10^3/uL (0.5-4.7); ABSOLUTE MONOCYTES (AUTO) 0.5 10^3/uL (0.1-1.4); ABSOLUTE NEUT (AUTO) 3.2 10^3/uL (1.7-8.2); BASOPHILS % (AUTO) 0.4 % (0-2); EOSINOPHILS % (AUTO) 1.4 % (0-6); HEMATOCRIT 30.4 % (36.0-47.0); HEMOGLOBIN 10.8 g/dL (12.0-15.5); LYMPHOCYTES % (AUTO) 23.5 % (13-45); MEAN CORPUSCULAR HEMOGLOBIN 31.1 pg (27.0-33.4); MEAN CORPUSCULAR HGB CONC 35.5 g/dL (32.0-36.0); MEAN CORPUSCULAR VOLUME 88 fl (80-97); MONOCYTES % (AUTO) 9.2 % (3-13); PLATELET COUNT 155 10^3/uL (150-450); RED BLOOD COUNT 3.47 10^6/uL (3.72-5.28); SEGMENTED NEUTROPHILS % (AUTO) 65.5 % (42-78); TOTAL CELLS COUNTED % (AUTO) 100 %; WHITE BLOOD COUNT 4.9 10^3/uL (4.0-10.5)
[2020-08-20 05:37] LABS: ANION GAP 8 (5-19); BLOOD UREA NITROGEN 25 mg/dL (7-20); CALCIUM 8.6 mg/dL (8.4-10.2); CARBON DIOXIDE 24 mmol/L (22-30); CHLORIDE 106 mmol/L (98-107); GLUCOSE 91 mg/dL (75-110); POTASSIUM 3.8 mmol/L (3.6-5.0)
--- NOTE | 2020-08-20 08:14 | PDOC PROGRESS REPORT ---
Subjective Progress Note for:: 08/20/20 Subjective:: Patient states that she started the Xarelto yesterday. She had no bleeding or side effects from this medication. She is anxious for discharge today. Reason For Visit: BILATERAL PE Physical Exam Vital Signs: Temp Pulse Resp BP Pulse Ox 98.0 F 66 19 147/87 H 98 08/20/20 07:30 08/20/20 07:30 08/20/20 07:30 08/20/20 07:30 08/20/20 07:30 Intake & Output 08/19/20 08/20/20 08/21/20 06:59 06:59 06:59 Intake Total 1618 1385 Output Total 1600 820 Balance 18 565 Weight 114.7 kg 116 kg General appearance: PRESENT: obese Head exam: PRESENT: normocephalic Respiratory exam: PRESENT: unlabored Musculoskeletal exam: PRESENT: normal inspection Neurological exam: PRESENT: alert, awake Psychiatric exam: PRESENT: appropriate affect Skin exam: PRESENT: normal color Results Laboratory Results: 08/20/20 05:02 08/20/20 05:02 08/20/20 08/20/20 05:02 05:02 WBC 4.9 RBC 3.47 L Hgb 10.8 L Hct 30.4 L MCV 88 MCH 31.1 MCHC 35.5 RDW 14.0 Plt Count 155 Seg Neutrophils % 65.5 Sodium 137.7 Potassium 3.8 Chloride 106 Carbon Dioxide 24 Anion Gap 8 BUN 25 H Creatinine 0.91 Est GFR ( Amer) > 60 Glucose 91 Calcium 8.6 08/17/20 08/17/20 08/18/20 21:58 21:58 00:45 Creatine Kinase 56 CK-MB (CK-2) 1.29 Troponin I 0.142 0.288 Impressions: Chest X-Ray 08/17/20 21:40 IMPRESSION: There are no acute lung parenchymal findings. Chest/Abdomen CTA 08/17/20 23:26 IMPRESSION: Bilateral pulmonary emboli. This a moderate thrombus burden, as we discussed. There is evidence of right heart strain. The lungs are grossly clear. Indeterminate lesions within the liver. These may warrant further evaluation if not a known finding These critical finding of pulmonary embolus was discussed personally by phone with, and an understanding was acknowledged by, Dr. HÉCTOR BEARD on 08/17/2020 11:37 PM CDT. Assessment & Plan - Diagnosis (1) Lesion of liver Is this a current diagnosis for this admission?: Yes (2) Pulmonary embolism, bilateral Is this a current diagnosis for this admission?: Yes (3) Colon cancer Qualifiers: Colon location: unspecified part of colon Qualified Code(s): C18.9 - Malignant neoplasm of colon, unspecified Is this a current diagnosis for this admission?: No - Time Time Spent with patient: Less than 15 minutes - Plan Summary Plan Summary: She will continue the Xarelto 15 mg po BID x 21 days then 20 mg po daily. I will be happy to follow her in the office upon discharge. Please call if needed.
--- NOTE | 2020-08-20 08:32 | PDOC DISCHARGE SUMMARY ---
Impression - Admit/DC Date/PCP Admission Date/Primary Care Provider: 08/18/20 01:21 VENKATA TORRES PA-C Discharge Date: 08/20/20 - Discharge Diagnosis (1) Pulmonary embolism, bilateral Is this a current diagnosis for this admission?: Yes (2) Elevated troponin Is this a current diagnosis for this admission?: Yes (3) Lesion of liver Is this a current diagnosis for this admission?: Yes (4) Chest pain Is this a current diagnosis for this admission?: Yes (5) Dyspnea on exertion Is this a current diagnosis for this admission?: Yes (6) HLD (hyperlipidemia) Is this a current diagnosis for this admission?: Yes (7) Colon cancer Is this a current diagnosis for this admission?: No (8) Essential hypertension Is this a current diagnosis for this admission?: Yes - Additional Information Discharge Diet: Cardiac Discharge Activity: Activity As Tolerated Referrals: PADMAJA CHUNG MD [ACTIVE STAFF] - (in 2-3 weeks. Please call office to arrange. ) JAZZY WHITEHEAD MD [EMERITUS] - Follow up as needed Prescriptions: Rivaroxaban [Xarelto 15 mg Tablet] 15 mg PO BIDBS #42 tablet Home Medications: Aspirin [Aspirin 81 mg Chewable Tablet] 81 mg PO DAILY 06/03/14 Potassium Chloride [Klor-Con 10 Meq Tablet ER] 10 meq PO DAILY 06/03/14 Simvastatin 40 mg PO QPM 06/03/17 Tramadol HCl 50 mg PO Q8HP PRN 06/03/17 Zolpidem Tartrate [Ambien 5 mg Tablet] 5 mg PO HSP PRN 02/14/19 Losartan/Hydrochlorothiazide [Hyzaar 50-12.5 Tablet] 1 tab PO DAILY 08/14/20 Nitroglycerin [Nitrostat 0.4 mg (1/150 Gr) Tabs 25/Bottle] 1 tab SL Q5MP PRN 08/18/20 Rivaroxaban [Xarelto 15 mg Tablet] 15 mg PO BIDBS #42 tablet 08/20/20 History of Present Illiness History of Present Illness: YUE MARTINEZ is a 75 year old female This is a 75-year-old female with a history of the pulmonary embolism in 2008 history of the colon cancer status post colon resections in 2002 with the last year history of the sigmoidoscopy removing the large polyps currently follow-up with [facility] came to the emergency department with a complaining of chest pain Patient was admitted couple of days back because of the chest pain rule out acute coronary syndromes and discharge and suggest to follow outpatients which 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 is 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 In the emergency department patient underwent for the CT angiogram which suggested bilateral pulmonary embolism with the right side of the heart strain Patient was admitted started on a heparin drips and I saw the patient in the floor denied any chest pain no short of breath Also seen by the hematology " Suggest to continues a heparin drip and work out about the liver lesion which patient said that she has a liver lesion in the past will look at the back history Patient's denied any abdominal pain no nausea no vomiting Patient is denied any blood in the stools no black stools Patient's denied any heart disease patients just follow Dr. whitehead for high blood pressures Hospital Course Hospital Course: This is a 75-year-old female admitting in the hospital for the bilateral pulmonary embolism and the liver lesion and the chest pain Patient was started on a heparin drip this is a second episode of the pulmonary embolism the spd tech was consulted and the patient was continues heparin drip for 48 hours and then switched to the Xarelto Patient is doing very well walking the hallway without any problem no require any oxygen's Patient also seen by the cardiology echocardiogram was done with normal EF some moderate pulmonary hypertension's due to the pulmonary embolism and suggest to follow outpatient repeat the echo in 3 months Patient's denied any chest pain no short of breath hematolgy suggest the continues to Xarelto follow outpatient Patient having no blood in the stools no black stools Discussed with the patient about the Xarelto and precaution including the fall any bleeding needs to be watch Patient's otherwise remained stable Physical Exam Vital Signs: Temp Pulse Resp BP Pulse Ox 98.0 F 66 19 147/87 H 98 08/20/20 07:30 08/20/20 07:30 08/20/20 07:30 08/20/20 07:30 08/20/20 07:30 Intake & Output 08/19/20 08/20/20 08/21/20 06:59 06:59 06:59 Intake Total 1618 1385 Output Total 1600 820 Balance 18 565 Weight 114.7 kg 116 kg General appearance: PRESENT: no acute distress, well-developed, well-nourished Head exam: PRESENT: atraumatic, normocephalic Eye exam: PRESENT: conjunctiva pink, EOMI, PERRLA. ABSENT: scleral icterus Ear exam: PRESENT: normal external ear exam Mouth exam: PRESENT: moist, tongue midline Neck exam: ABSENT: carotid bruit, JVD, lymphadenopathy, thyromegaly Respiratory exam: PRESENT: clear to auscultation nathan. ABSENT: rales, rhonchi, wheezes Cardiovascular exam: PRESENT: RRR. ABSENT: diastolic murmur, rubs, systolic murmur Pulses: PRESENT: normal dorsalis pedis pul Vascular exam: PRESENT: normal capillary refill GI/Abdominal exam: PRESENT: normal bowel sounds, soft. ABSENT: distended, guarding, mass, organolmegaly, rebound, tenderness Rectal exam: PRESENT: deferred Extremities exam: PRESENT: full ROM. ABSENT: calf tenderness, clubbing, pedal edema Neurological exam: PRESENT: alert, awake, oriented to person, oriented to place, oriented to time, oriented to situation, CN II-XII grossly intact. ABSENT: motor sensory deficit Psychiatric exam: PRESENT: appropriate affect, normal mood. ABSENT: homicidal ideation, suicidal ideation Skin exam: PRESENT: dry, intact, warm. ABSENT: cyanosis, rash Results Laboratory Results: WBC 4.9 10^3/uL (4.0-10.5) 08/20/20 05:02 RBC 3.47 10^6/uL (3.72-5.28) L 08/20/20 05:02 Hgb 10.8 g/dL (12.0-15.5) L 08/20/20 05:02 Hct 30.4 % (36.0-47.0) L 08/20/20 05:02 MCV 88 fl (80-97) 08/20/20 05:02 MCH 31.1 pg (27.0-33.4) 08/20/20 05:02 MCHC 35.5 g/dL (32.0-36.0) 08/20/20 05:02 RDW 14.0 % (11.5-14.0) 08/20/20 05:02 Plt Count 155 10^3/uL (150-450) 08/20/20 05:02 Lymph % (Auto) 23.5 % (13-45) 08/20/20 05:02 Gallia % (Auto) 9.2 % (3-13) 08/20/20 05:02 Eos % (Auto) 1.4 % (0-6) 08/20/20 05:02 Baso % (Auto) 0.4 % (0-2) 08/20/20 05:02 Absolute Neuts (auto) 3.2 10^3/uL (1.7-8.2) 08/20/20 05:02 Absolute Lymphs (auto) 1.2 10^3/uL (0.5-4.7) 08/20/20 05:02 Absolute Monos (auto) 0.5 10^3/uL (0.1-1.4) 08/20/20 05:02 Absolute Eos (auto) 0.1 10^3/uL (0.0-0.6) 08/20/20 05:02 Absolute Basos (auto) 0.0 10^3/uL (0.0-0.2) 08/20/20 05:02 Seg Neutrophils % 65.5 % (42-78) 08/20/20 05:02 PT 12.7 SEC (11.4-15.4) 08/17/20 21:58 INR 0.93 08/17/20 21:58 APTT 74.5 SEC (23.5-35.8) H 08/19/20 09:37 Sodium 137.7 mmol/L (137-145) 08/20/20 05:02 Potassium 3.8 mmol/L (3.6-5.0) 08/20/20 05:02 Chloride 106 mmol/L (98-107) 08/20/20 05:02 Carbon Dioxide 24 mmol/L (22-30) 08/20/20 05:02 Anion Gap 8 (5-19) 08/20/20 05:02 BUN 25 mg/dL (7-20) H 08/20/20 05:02 Creatinine 0.91 mg/dL (0.52-1.25) 08/20/20 05:02 Est GFR ( Amer) > 60 (>60) 08/20/20 05:02 Est GFR (MDRD) Non-Af > 60 (>60) 08/20/20 05:02 Glucose 91 mg/dL (75-110) 08/20/20 05:02 Calcium 8.6 mg/dL (8.4-10.2) 08/20/20 05:02 Total Bilirubin 0.7 mg/dL (0.2-1.3) 08/19/20 04:50 Direct Bilirubin 0.3 mg/dL (0.0-0.4) 08/19/20 04:50 Neonat Total Bilirubin Not Reportable 08/19/20 04:50 Neonat Direct Bilirubin Not Reportable 08/19/20 04:50 Neonat Indirect Bili Not Reportable 08/19/20 04:50 AST 20 U/L (14-36) 08/19/20 04:50 ALT 15 U/L (<35) 08/19/20 04:50 Alkaline Phosphatase 82 U/L (38-126) 08/19/20 04:50 Creatine Kinase 56 U/L (30-135) 08/17/20 21:58 CK-MB (CK-2) 1.29 ng/mL (<4.55) 08/17/20 21:58 Troponin I 0.288 ng/mL 08/18/20 00:45 Total Protein 5.5 g/dL (6.3-8.2) L 08/19/20 04:50 Albumin 3.2 g/dL (3.5-5.0) L 08/19/20 04:50 TSH 2.22 uIU/mL (0.47-4.68) 08/18/20 00:45 Free T4 1.27 ng/dL (0.78-2.19) 08/18/20 00:45 Urine Color YELLOW 08/18/20 05:52 Urine Appearance CLEAR 08/18/20 05:52 Urine pH 5.0 (5.0-9.0) 08/18/20 05:52 Ur Specific [place] 1.060 08/18/20 05:52 Urine Protein NEGATIVE mg/dL (NEGATIVE) 08/18/20 05:52 Urine Glucose (UA) NEGATIVE mg/dL (NEGATIVE) 08/18/20 05:52 Urine Ketones NEGATIVE mg/dL (NEGATIVE) 08/18/20 05:52 Urine Blood NEGATIVE (NEGATIVE) 08/18/20 05:52 Urine Nitrite NEGATIVE (NEGATIVE) 08/18/20 00:57 Urine Nitrite (Reflex) POSITIVE (NEGATIVE) H 08/18/20 05:52 Urine Bilirubin NEGATIVE (NEGATIVE) 08/18/20 05:52 Urine Urobilinogen NEGATIVE mg/dL (<2.0) 08/18/20 05:52 Ur Leukocyte Esterase LARGE (NEGATIVE) H 08/18/20 00:57 Leukocyte Esterase Rfl SMALL (NEGATIVE) H 08/18/20 05:52 Urine WBC (Auto) 48 /HPF 08/18/20 00:57 Urine RBC (Auto) 2 /HPF 08/18/20 05:52 Urine Bacteria (Auto) 2+ /HPF 08/18/20 05:52 Urine WBC (Reflex) 11 /HPF 08/18/20 05:52 Squamous Epi Cells Auto 5 /HPF 08/18/20 05:52 Urine Mucus (Auto) OCC /LPF 08/18/20 05:52 Urine Ascorbic Acid NEGATIVE (NEGATIVE) 08/18/20 05:52 08/17/20 08/18/20 21:58 00:45 CK-MB (CK-2) 1.29 Troponin I 0.142 0.288 Impressions: Chest X-Ray 08/17/20 21:40 IMPRESSION: There are no acute lung parenchymal findings. Chest/Abdomen CTA 08/17/20 23:26 IMPRESSION: Bilateral pulmonary emboli. This a moderate thrombus burden, as we discussed. There is evidence of right heart strain. The lungs are grossly clear. Indeterminate lesions within the liver. These may warrant further evaluation if not a known finding These critical finding of pulmonary embolus was discussed personally by phone with, and an understanding was acknowledged by, Dr. HÉCTOR BEARD on 08/17/2020 11:37 PM CDT. Plan Time Spent: Greater than 30 Minutes - Follow-up in office in 1 week and follow with the hematology and cardiology Stroke Is this a Stroke Patient?: No Acute Heart Failure Is this a Heart Failure Patient?: No
[2020-08-20] MEDS: RIVAROXABAN 15 MG TABLET PO SCH (08:38)
[2020-08-20 09:43] VITALS: BP 102/52
== END 2020-08-20 09:52 | disposition home health service (06) | DRG 176 ==
LOC: ER 20:59 → EH 08-18 01:21 → 5 08-18 02:10 → EH 08-18 02:12 → 5 08-18 03:17
PROVIDERS: ADMIT Family Medicine; ATTEND Family Medicine
DX: I26.99 Other pulmonary embolism without acute cor pulmonale (principal); Z68.41 Body mass index [BMI] 40.0-44.9, adult; K76.9 Liver disease, unspecified; E78.00 Pure hypercholesterolemia, unspecified; I10 Essential (primary) hypertension; E66.01 Morbid (severe) obesity due to excess calories; Z86.711 Personal history of pulmonary embolism; Z85.038 Personal history of other malignant neoplasm of large intestine
CPT/HCPCS: 36415; 71045; 71275; 80048; 80053; 81001; 82550; 82553; 84439; 84443; 84484; 85025; 85610; 85730; 93005; 93010; 93306; 96374; 99285; J1644; J7030

== ENCOUNTER → 2020-09-19 | Outpatient (CLI) | payer MEDICARE ==
[2020-09-19 09:16] LABS: ALBUMIN 3.6 g/dL (3.5-5.0); ALKALINE PHOSPHATASE 78 U/L (38-126); ANION GAP 8 (5-19); ASPARTATE AMINO TRANSFERASE 21 U/L (14-36); BILIRUBIN,TOTAL 0.7 mg/dL (0.2-1.3); BLOOD UREA NITROGEN 28 mg/dL (7-20); CALCIUM 9.1 mg/dL (8.4-10.2); CARBON DIOXIDE 28 mmol/L (22-30); CHLORIDE 104 mmol/L (98-107); GLUCOSE 91 mg/dL (75-110)
[2020-09-19 09:17] LABS: BILIRUBIN,DIRECT 0.1 mg/dL (0.0-0.4); CHOLESTEROL 126.42 mg/dL (0-200); TRIGLYCERIDES 76 mg/dL (<150)
[2020-09-19 09:27] LABS: DIRECT LDL 51 mg/dL (<100)
--- OUTSIDE RECORDS SUMMARY | 2020-09-22 08:55 | XMS REPORT ---
:1945 [facility] [place] [address] [place] [address] Care Team Providers Name Role Phone Edward Hendrix Attending Clinician Yusef Herndon MD Attending Clinician Unavailable Allergies, Adverse Reactions, Alerts This patient has no known allergies or adverse reactions. Medications Ordered Filled Start Stop Current Ordering Indication Dosage Frequency Signature Comments Components Medication Medication Date Date Medication? Clinician (SIG) Name Name Xarelto 2019- Yes 1 00:00: 00 Cyclobenzap Yes 1 rine HCl hydroCHLORO Yes 1 thiazide Losartan Yes 1 Potassium Nitroglycer Yes 1 in Potassium Yes 1 Chloride Padmaja ER Rivaroxaban Yes 1 Simvastatin Yes 1 traMADol Yes 1 HCl Ambien 2019- No 1 09-03 15:21 :39 Aspirin 2019- No 09-03 15:21 :19 Hyzaar 2019- No 1 09-03 15:22 :49 Problems Condition Condition Condition Status Onset Resolution Last Treatin g Comments Name Details Category Date Date Treatment Clinician Date Pulmonary Pulmonary Diagnosis active 2019-11 embolism embolism 00:00: 00 Procedures Procedure Date / Time Performed Performing Clinician Amirahc e OFFICE/OUTPATIENT VISIT, EST 2020-07-25 10:30:00 hysterectomy tonsillectomy Orthopedic Surgery-right knee Results This patient has no known results. Assessments Condition Name Status Diagnosis Date Treating Clinici an Unilateral primary osteoarthritis, left knee Active Spondylolysis, lumbar region Active Low back pain Active Pain in left knee Active Encounters Start End Encounter Admission Attending Care Care Encounter Date/Time Date/Time Type Type Clinicians Facility Department ID 2020-09-09 2020-09-09 Outpatient [facility] n [id number] 00:00:00 00:00:00 Medical Medical Oncology Oncology [facility] 2020-09-05 2020-09-05 Outpatient [facility] n [id number] 00:00:00 00:00:00 [facility] On[facility] 2020-09-03 2020-09-03 [facility] [id number] 00:00:00 00:00:00 Connie Keyon [facility]ie n Medical Medical Oncology Oncology Center [facility] 2020-08-20 2020-08-20 Outpatient Arcelia Paniagua n [id number] 00:00:00 00:00:00 n Medical Medical Oncology Oncology [facility] [place] 2020-08-19 2020-08-19 Outpatient Arcelia Paniagua n [id number] 00:00:00 00:00:00 n Medical Medical Oncology Oncology Center [facility] 2020-08-18 2020-08-18 Outpatient Arcelia Paniagua n [id number] 00:00:00 00:00:00 n Medical Medical Oncology Oncology [facility] [place] 2020-08-17 2020-08-17 Outpatient Arcelia Paniagua n [id number] 00:00:00 00:00:00 n Medical Medical Oncology Oncology [facility] [place] 2020-08-06 2020-08-06 Outpatient Arcelia Paniagua n [id number] 00:00:00 00:00:00 Medical Medical Oncology Oncology [facility] [place] 2020-07-25 2020-07-25 Outpatient Yanick AKINS, [address] [id number] 10:30:00 10:30:00 [facility] [id number] \T\ Sports [id number] [facility] [id number] 2020-07-04 2020-07-04 Outpatient Arcelia Paniagua n [id number] 00:00:00 00:00:00 [facility] Medical Oncology Oncology [facility] [place] 2019-11-22 2019-11-22 Outpatient Arcelia Paniagua n [id number] 00:00:00 00:00:00 [facility] Oncology Oncology [facility] Social History Smoking Status Start Date Stop Date Yes - but quit (former) 2020-09-03 15:09:29 2020-09-03 15:09 :29 Social History Observation Description Sex Female Vital Signs Vital Name Observation Time Observation Value Comments BMI 2020-09-03 15:08:06 42.4700 BP urias 2020-09-03 15:08:06 83.0000 mm[Hg] Bdy height 2020-09-03 15:08:06 65.0000 [in_i] Heart rate 2020-09-03 15:08:06 70.0000 /min Resp rate 2020-09-03 15:08:06 20.0000 /min BP sys 2020-09-03 15:08:06 164.0000 mm[Hg] Body temperature 2020-09-03 15:08:06 99.0000 [degF] Weight 2020-09-03 15:08:06 255.2000 [lb_av]
== END ==
LOC: OD 07:42
PROVIDERS: ATTEND Internal Medicine Cardiovascular Disease
DX: E78.00 Pure hypercholesterolemia, unspecified (principal); I10 Essential (primary) hypertension; Z79.899 Other long term (current) drug therapy
CPT/HCPCS: 36415; 80048; 80061; 80076

== ENCOUNTER → 2020-09-22 | Outpatient (CLI) | payer MEDICARE ==
[2020-09-22 10:21] LABS: HEMATOCRIT 31.8 % (36.0-47.0); HEMOGLOBIN 10.9 g/dL (12.0-15.5); MEAN CORPUSCULAR HEMOGLOBIN 30.7 pg (27.0-33.4); MEAN CORPUSCULAR HGB CONC 34.4 g/dL (32.0-36.0); MEAN CORPUSCULAR VOLUME 89 fl (80-97); PLATELET COUNT 185 10^3/uL (150-450); RED BLOOD COUNT 3.55 10^6/uL (3.72-5.28); RED CELL DISTRIBUTION WIDTH 15.3 % (11.5-14.0)
[2020-09-22 10:43] LABS: ALBUMIN 3.6 g/dL (3.5-5.0); ALKALINE PHOSPHATASE 79 U/L (38-126); ANION GAP 7 (5-19); ASPARTATE AMINO TRANSFERASE 19 U/L (14-36); BILIRUBIN,DIRECT 0.1 mg/dL (0.0-0.4); BILIRUBIN,TOTAL 0.6 mg/dL (0.2-1.3); BLOOD UREA NITROGEN 22 mg/dL (7-20); CALCIUM 8.8 mg/dL (8.4-10.2); CARBON DIOXIDE 31 mmol/L (22-30); CHLORIDE 101 mmol/L (98-107); CHOLESTEROL 130.54 mg/dL (0-200); GLUCOSE 95 mg/dL (75-110); POTASSIUM 3.8 mmol/L (3.6-5.0); TOTAL PROTEIN 6.1 g/dL (6.3-8.2); TRIGLYCERIDES 64 mg/dL (<150); URIC ACID 5.2 mg/dL (2.5-7.5)
[2020-09-22 10:54] LABS: DIRECT LDL 55 mg/dL (<100)
== END ==
LOC: OD 09:05
PROVIDERS: ATTEND Internal Medicine Cardiovascular Disease
DX: M10.9 Gout, unspecified (principal); E78.00 Pure hypercholesterolemia, unspecified; I26.99 Other pulmonary embolism without acute cor pulmonale; R06.02 Shortness of breath; I10 Essential (primary) hypertension; Z79.899 Other long term (current) drug therapy; R00.2 Palpitations
CPT/HCPCS: 36415; 80048; 80061; 80076; 83880; 84550; 85027; 85379

== ENCOUNTER → 2020-12-05 | Outpatient (CLI) | payer MEDICARE ==
--- NOTE | 2020-12-05 10:21 | RADIOLOGY REPORT (SQ) ---
EXAM DESCRIPTION: CHEST 2 VIEWS IMAGES COMPLETED DATE/TIME: 12/05/2020 9:47 am REASON FOR STUDY: SHORTNESS OF BREATH COMPARISON: 08/17/2020 and 11/16/2018 EXAM PARAMETERS: NUMBER OF VIEWS: two views TECHNIQUE: Digital Frontal and Lateral radiographic views of the chest acquired. RADIATION DOSE: NA LIMITATIONS: none FINDINGS: LUNGS AND PLEURA: No opacities, masses or pneumothorax. No pleural effusion. MEDIASTINUM AND HILAR STRUCTURES: No masses or contour abnormalities. HEART AND VASCULAR STRUCTURES: Heart normal size. No evidence for failure. BONES: No acute findings. HARDWARE: None in the chest. OTHER: No other significant finding. IMPRESSION: NO ACUTE RADIOGRAPHIC FINDING IN THE CHEST. TECHNICAL DOCUMENTATION: JOB ID: [id number] 2010 [employer]- All Rights Reserved Reading location - IP/workstation name: [email or web address]
[2020-12-05 10:30] LABS: ABSOLUTE EOSINOPHILS # (AUTO) 0.1 10^3/uL (0.0-0.6); ABSOLUTE LYMPHOCYTES (AUTO) 0.7 10^3/uL (0.5-4.7); ABSOLUTE MONOCYTES (AUTO) 0.4 10^3/uL (0.1-1.4); ABSOLUTE NEUT (AUTO) 3.1 10^3/uL (1.7-8.2); BASOPHILS % (AUTO) 0.6 % (0-2); EOSINOPHILS % (AUTO) 1.8 % (0-6); HEMOGLOBIN 9.3 g/dL (12.0-15.5); LYMPHOCYTES % (AUTO) 15.5 % (13-45); MEAN CORPUSCULAR HEMOGLOBIN 30.2 pg (27.0-33.4); MEAN CORPUSCULAR HGB CONC 33.4 g/dL (32.0-36.0); MEAN CORPUSCULAR VOLUME 90 fl (80-97); MONOCYTES % (AUTO) 10.1 % (3-13); PLATELET COUNT 239 10^3/uL (150-450); RED BLOOD COUNT 3.09 10^6/uL (3.72-5.28); RED CELL DISTRIBUTION WIDTH 16.6 % (11.5-14.0); TOTAL CELLS COUNTED % (AUTO) 100 %; WHITE BLOOD COUNT 4.3 10^3/uL (4.0-10.5)
[2020-12-05 10:54] LABS: ALBUMIN 3.5 g/dL (3.5-5.0); ALKALINE PHOSPHATASE 71 U/L (38-126); ANION GAP 6 (5-19); ASPARTATE AMINO TRANSFERASE 19 U/L (14-36); BILIRUBIN,DIRECT 0.2 mg/dL (0.0-0.4); BILIRUBIN,TOTAL 0.6 mg/dL (0.2-1.3); BLOOD UREA NITROGEN 27 mg/dL (7-20); CALCIUM 8.9 mg/dL (8.4-10.2); CARBON DIOXIDE 27 mmol/L (22-30); CHLORIDE 101 mmol/L (98-107); CREATINE KINASE 37 U/L (30-135); GLUCOSE 108 mg/dL (75-110); POTASSIUM 3.9 mmol/L (3.6-5.0)
[2020-12-05 11:15] LABS: CREATINE KINASE MB < 0.22 ng/mL (<4.55); TROPONIN I < 0.012 ng/mL
== END ==
LOC: RAD 09:25
PROVIDERS: ATTEND Physician Assistant
DX: R06.02 Shortness of breath (principal)
CPT/HCPCS: 36415; 71046; 80053; 82550; 82553; 84484; 85025